=== PATIENT | female | born 1985 | race Caucasian/White ===

== ENCOUNTER 2017-11-30 17:37 | Emergency (ER) | payer OTHER, SELFPAY ==
[2017-11-30 17:39] VITALS: BP 137/76; PULSE 101; RESP 16; TEMP 36.6; O2SAT 95; BMI 44.7
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
--- NOTE | 2017-11-30 19:36 | ED.RN ---
[facility] CALLED FOR DRUG TESTING
[2017-11-30 20:07] VITALS: BP 138/89; PULSE 93; RESP 18; O2SAT 99
--- NOTE | 2017-11-30 20:18 | ED.RN ---
later found out it was a work related injury. pt;s employer us [employer] in [place]. Pt was a test through [facility] and follow up through same. Nurse and physician aware
== END 2017-11-30 20:17 | disposition home or self-care (01) ==
LOC: ED 20:15
PROVIDERS: Emergency Provider Emergency Medicine; Family Provider Family Medicine; PCP Family Medicine
DX: S00.33XA Contusion of nose, initial encounter (principal); R11.0 Nausea; V89.2XXA Person injured in unspecified motor-vehicle accident, traffic, initial encounter; Y93.9 Activity, unspecified; Y92.9 Unspecified place or not applicable
CPT/HCPCS: 99283

== ENCOUNTER → 2018-04-16 15:00 | Outpatient (CLI) | payer BC, SELFPAY ==
[2018-04-16 17:42] LABS: Prolactin 10.2 ng/mL; Thyroid Stim Hormone (TSH) 1.54 uIU/mL (0.358-3.74)
== END ==
PROVIDERS: Family Provider Family Medicine; PCP Family Medicine; Visit Provider Obstetrics & Gynecology
DX: N64.3 Galactorrhea not associated with childbirth (principal)
CPT/HCPCS: 36415; 84146; 84443

== ENCOUNTER → 2018-04-27 13:50 | Outpatient (CLI) | payer BC, SELFPAY ==
--- NOTE | 2018-04-27 13:53 | BI_ITS ---
MAMMOGRAPHY - BILATERAL DIAGNOSTIC REASON FOR EXAM: Female, 32 years old. Bilateral milky discharge. PERTINENT HISTORY: Family history of father with breast cancer. TECHNIQUE: Digital bilateral breast forrest (3D mammographic acquisition) in the CC and MLO projections. 2-D mediolateral oblique (MLO) and craniocaudad (CC) views of both breasts were obtained. CAD: Full Field Digital Mammography with Computer Added Detection was performed. COMPARISON: None. FINDINGS: Breast Composition: There are scattered areas of fibroglandular density. There are no dominant masses or suspicious calcifications. No other significant abnormalities are identified. BI/DIAG MAMM W/CAD, BILAT IMPRESSION: Negative diagnostic mammogram. With the patient's history of bilateral breast discharge, correlation with ultrasound of the retroareolar regions of both breasts is recommended. ASSESSMENT CATEGORY: BIRADS Category 0: Incomplete. Need additional imaging evaluation. A letter regarding these results will be sent to the patient by the facility within 30 days. Approximately 10% of breast cancers are not detected by mammography. A normal mammogram should not delay biopsy of a clinically suspicious abnormality. Electronically Signed: Terrance Briones MD at 14:56 EDT Tel [phone], Service support ,
--- NOTE | 2018-04-27 13:53 | US_ITS ---
STUDY: ULTRASOUND BREAST - RIGHT REASON FOR EXAM: Female, 32 years old. Nipple discharge. TECHNIQUE: Axial and longitudinal images of the RIGHT breast were performed with a high resolution ultrasound transducer. COMPARISON: Comparison is made with prior mammogram done earlier today. FINDINGS: RIGHT Breast: Mild dilatation of the retroareolar ducts. IMPRESSION: Mild dilatation of the retroareolar ducts. ASSESSMENT CATEGORY: BIRADS Category 2: Benign. A letter regarding these results will be sent to the patient by the facility within 30 days. Electronically Signed: Terrance Briones MD at 15:58 EDT Tel [phone], Service support , STUDY: ULTRASOUND BREAST - LEFT REASON FOR EXAM: Female, 32 years old. Nipple discharge. TECHNIQUE: Axial and longitudinal images of the LEFT breast were performed with a high resolution ultrasound transducer. COMPARISON: Comparison is made with prior mammogram done earlier in the day. FINDINGS: LEFT Breast: There is mild dilatation of the retroareolar ducts. US/Breast Limited Unilateral IMPRESSION: Mild dilatation of the retroareolar ducts. ASSESSMENT CATEGORY: BIRADS Category 2: Benign. A letter regarding these results will be sent to the patient by the facility within 30 days. Electronically Signed: Terrance Briones MD at 15:59 EDT Tel [phone], Service support ,
== END ==
PROVIDERS: Family Provider Family Medicine; PCP Family Medicine; Visit Provider Surgery
DX: N64.52 Nipple discharge (principal)
CPT/HCPCS: 76642; 77062; 77066; G0279

== ENCOUNTER → 2019-06-27 10:05 | Outpatient (CLI) | payer OTHER, SELFPAY ==
[2019-06-27 09:31] VITALS: BMI 45.4
[2019-06-27 10:23] LABS: Absolute Lymphocyte Count 2.03 X10^3/uL (0.83-4.51); Absolute Neutrophil Count 8.6 X10^3/uL (2.0-7.7); Basophil# 0.04 X10^3/uL; Basophil% 0.3 % (0-1); Eosinophil# 0.11 X10^3/uL; Eosinophils% 0.9 % (0-5); Hematocrit 38.4 % (37-47); Hemoglobin 12.6 g/dL (12.0-15.0); Lymphocyte # 2.03 X10^3/ul (4.0); Lymphocyte % 17.3 % (19-41); Mean Corp Hgb Conc 32.8 g/dL (32-36); Mean Corpuscular Hgb 28.9 pg (27.0-32.0); Mean Corpuscular Volume 88.1 fL (81-99); Mean Platelet Vol. 10.1 fl (6.2-12.0); Monocyte% 7.7 % (0-10); NRBC Flagged by Analyzer 0 % (0-5); Neutrophil # 8.63 X10^3/uL (2.7-7.7); Neutrophil % 73.4 % (47-70); Platelet Count 396 K/mm3 (150-450); RBC Distribution Width CV 12.4 % (11.6-14.6); RBC Distribution Width SD 40.1 fl (35.1-43.9); Red Blood Count 4.36 M/mm3 (4.2-5.4); White Blood Count 11.8 K/mm3 (4.4-11.0)
[2019-06-27 10:31] LABS: Glucose Challenge Gest 1H 50g 100 mg/dL (70-140)
[2019-06-27 11:44] LABS: HIV - WCH Non-Reactive (Nonreactive); Rubella IgG 84.8 IU/mL
[2019-06-27 18:05] LABS: Chlamydia Trachomatis by PCR Negative (Negative); Neisserai gonorrhoeae by PCR Negative (Negative); Probe Check PASS; Sample Adequacy Control PASS; Specimen Processing Control PASS
[2019-06-30 12:19] LABS: HPV APTIMA, High Risk Negative (Negative)
[2019-07-01 02:40] LABS: Rapid Plasmin Reagin (RPR) NONREACTIVE (NONREACTIVE)
== END ==
PROVIDERS: Nurse Practitioner Women's Health; Family Provider Family Medicine; PCP Family Medicine; Referring Provider Obstetrics & Gynecology; Visit Provider Obstetrics & Gynecology
DX: Z34.90 Encounter for supervision of normal pregnancy, unspecified, unspecified trimester (principal); Z12.4 Encounter for screening for malignant neoplasm of cervix
CPT/HCPCS: 36415; 82950; 85025; 86592; 86703; 86762; 86850; 86900; 86901; 87086; 87088; 87491; 87591; 87624; 88175; G0145

== ENCOUNTER → 2019-07-06 14:12 | Outpatient (CLI) | payer OTHER, SELFPAY ==
[2019-06-27 09:31] VITALS: BMI 45.4
== END ==
PROVIDERS: Family Provider Family Medicine; PCP Family Medicine; Referring Provider Nurse Practitioner Women's Health; Visit Provider Nurse Practitioner Women's Health
DX: Z34.81 Encounter for supervision of other normal pregnancy, first trimester (principal)
CPT/HCPCS: 36415

== ENCOUNTER → 2019-07-08 07:56 | Outpatient (CLI) | payer OTHER, SELFPAY ==
[2019-06-27 09:31] VITALS: BMI 45.4
--- NOTE | 2019-07-08 07:57 | US_ITS ---
STUDY: FIRST TRIMESTER OBSTETRICAL ULTRASOUND REASON FOR EXAM: Female, 33 years old , well-being LMP: 04/20/2019 TECHNIQUE: Transabdominal and Transvaginal TECHNICAL QUALITY: Adequate. PRIOR ULTRASOUND: None. FINDINGS: There is visualization of a single gestational sac in a normal intrauterine position. The mean sac diameter (MSD) measures 4.94 cm, indicating an estimated gestational age (EGA) of 10 weeks, 5 days. The gestational sac shape is within normal limits. There is no demonstrated yolk sac. The placenta is non-visualized due to early . There is visualization of a live embryo. The crown-rump length (CRL) measures 3.4 cm, indicating an estimated gestational age (EGA) of 10 weeks, 3 days. There is demonstrated cardiac activity with a heart rate of 157 bpm. The estimated gestation age (EGA) by LMP is 11 weeks, 2 days. The estimated date of delivery (CONG) by LMP is 01/25/2020. The estimated gestation age (EGA) by US is 10 weeks, 4 days. The estimated date of delivery (CONG) by US is 01/30/2020. The uterus measures 14.3 x 7.6 x 7.2 cm. There is no demonstrated uterine fibroid. The cervix is closed. The right ovary measures 10.0 x 7.5 x 5.5 cm. Complex solid and cystic mass of the right ovary identified measuring 5 cm each component (bilobed). There is no visualized right adnexal mass or complex lesion. The left ovary is not definitively seen. There is 11 cm round slightly hyperechoic mass in the region of the left adnexa/ovarian that could represent an adnexal mass versus a pedunculated uterine fibroid. There is no fluid in the cul de sac. US/Init OB < 14Wks US IMPRESSION: 1. Single live intrauterine correlating to gestational age of 10 weeks and 4 days. 2. Complex solid and cystic mass of the right ovary. 3. Possible 11 cm solid mass of the left adnexa. Electronically Signed: Kranthi Paz MD (Brooks) at 16:17 EDT , Service support ,
== END ==
PROVIDERS: Family Provider Family Medicine; PCP Family Medicine; Referring Provider Nurse Practitioner Women's Health; Visit Provider Nurse Practitioner Women's Health
DX: Z34.90 Encounter for supervision of normal pregnancy, unspecified, unspecified trimester (principal); N94.9 Unspecified condition associated with female genital organs and menstrual cycle
CPT/HCPCS: 76801

== ENCOUNTER → 2019-07-25 11:02 | Outpatient (CLI) | payer OTHER, SELFPAY ==
[2019-06-27 09:31] VITALS: BMI 45.4
--- NOTE | 2019-07-25 11:09 | MRI_ITS ---
MRI of the pelvis without contrast INDICATION: Adnexal mass. COMPARISON: Ultrasound 07/08/2019 next TECHNIQUE: Multiplanar spin-echo minute resonance images of the pelvis were obtained without the administration of intravenous gadolinium. Next FINDINGS: Examination the visualized rectum and sigmoid colon is normal. Examination the uterus demonstrates enlargement of the uterus with a intrauterine gestation. Examination of the right ovary demonstrates a 4 x 8 cm oval bilobed mass which is hyperintense on T1, hyperintense on T2 and demonstrates signal loss on the STIR images likely consistent with a fat-containing ovarian dermoid or proteinaceous cyst. There is a soft tissue nodular component measuring 1.6 cm. Examination the left ovary demonstrates a 7 x 9 cm oval T1 hypointense, T2 hyperintense mass of the left ovary likely consistent with a theca lutein cyst. Examination the bladder is normal. No other abnormal mass, lymphadenopathy, fluid collection. MRI/Pelvis (Routine) IMPRESSION: 1. Intrauterine gestation. 2. 4 x 8 cm oval bilobed mass in the right ovary consistent with an ovarian dermoid or possibly a complicated (hemorrhagic or proteinaceous) theca lutein cyst. 3. 7 x 9 cm cystic mass in the left ovary likely consistent with a theca lutein cyst. Electronically Signed: Jose Sykes MD at 15:28 EDT Tel , Service support ,
== END ==
PROVIDERS: Family Provider Family Medicine; PCP Family Medicine; Referring Provider Nurse Practitioner Women's Health; Visit Provider Nurse Practitioner Women's Health
DX: N83.9 Noninflammatory disorder of ovary, fallopian tube and broad ligament, unspecified (principal); Z3A.13 13 weeks gestation of pregnancy
CPT/HCPCS: 72195

== ENCOUNTER → 2019-10-21 09:48 | Outpatient (CLI) | payer OTHER, SELFPAY ==
[2019-10-21 08:51] VITALS: BMI 45.4
[2019-10-21 10:44] LABS: Absolute Lymphocyte Count 2.15 X10^3/uL (0.83-4.51); Absolute Neutrophil Count 10.3 X10^3/uL (2.0-7.7); Basophil# 0.04 X10^3/uL; Basophil% 0.3 % (0-1); Eosinophil# 0.11 X10^3/uL; Eosinophils% 0.8 % (0-5); Hematocrit 32.2 % (37-47); Hemoglobin 10.6 g/dL (12.0-15.0); Lymphocyte # 2.15 X10^3/ul (4.0); Lymphocyte % 15.8 % (19-41); Mean Corp Hgb Conc 32.9 g/dL (32-36); Mean Corpuscular Hgb 29.4 pg (27.0-32.0); Mean Corpuscular Volume 89.2 fL (81-99); Mean Platelet Vol. 10.2 fl (6.2-12.0); Monocyte# 0.87 X10^3/uL; Monocyte% 6.4 % (0-10); NRBC Flagged by Analyzer 0 % (0-5); Neutrophil # 10.28 X10^3/uL (2.7-7.7); Neutrophil % 75.6 % (47-70); Platelet Count 388 K/mm3 (150-450); RBC Distribution Width SD 42.3 fl (35.1-43.9); Red Blood Count 3.61 M/mm3 (4.2-5.4); White Blood Count 13.6 K/mm3 (4.4-11.0)
[2019-10-21 10:55] LABS: Glucose Challenge Gest 1H 50g 111 mg/dL (70-140)
[2019-10-21 11:32] LABS: Hepatitis B Surface Antigen Non-Reactive (Nonreactive)
== END ==
PROVIDERS: PCP Family Medicine; Referring Provider Obstetrics & Gynecology; Visit Provider Obstetrics & Gynecology
DX: Z34.80 Encounter for supervision of other normal pregnancy, unspecified trimester (principal)
CPT/HCPCS: 36415; 82950; 85025; 87340

== ENCOUNTER 2019-11-30 10:19 | Outpatient (CLI) | payer OTHER, SELFPAY ==
[2019-11-25 08:30] VITALS: BMI 45.4
[2019-11-30 10:25] VITALS: BP 130/73; PULSE 96
[2019-11-30 10:36] VITALS: TEMP 97.8
[2019-11-30 10:41] VITALS: BMI 48.4
--- NOTE | 2019-11-30 10:59 | US_ITS ---
STUDY: OBSTETRICAL ULTRASOUND - BIOPHYSICAL PROFILE REASON FOR EXAM: Female, 33 years old tachycardia LMP: 04/20/2019 PRIOR ULTRASOUND: 07/25/2019 TECHNIQUE: Transabdominal TECHNICAL QUALITY: Adequate. FINDINGS: There is a single intrauterine fetus. The fetus is in a breech presentation. There is demonstrated cardiac activity with a heart rate of 165 bpm. There is a normal amniotic fluid volume. The largest amniotic fluid pocket measures 4.3 cm. The amniotic fluid index (ROSAS) is 14.0 cm. The placenta is anterior in location and is not low lying. There are Grade 1 placental changes. 3 cm triangular hypoechoic area within the base of the placenta anteriorly of uncertain etiology and significance. Another 1.8 cm placental buitrago is noted. Age by LMP: 32 weeks, 0 days. CONG by LMP: 01/25/2020. BIOPHYSICAL PROFILE: Breathing Movements (FBM): 0 Gross Body Movements (GBM): 2 Tone (FT): 2 Amniotic Fluid Volume (AFV): 2 TOTAL SCORE: 6 / 8 US/Biophysical Profile IMPRESSION: biophysical profile of 6/8. Unusual 3 cm triangular hypoechoic area in the basal anterior placenta of uncertain etiology and significance. Electronically Signed: Jose Sykes MD at 13:05 EST Tel , Service support ,
[2019-11-30] MEDS: Lactated Ringers 1,000 ML 1000 ML IV (11:30)
[2019-11-30 11:49] LABS: Hematocrit 33.8 % (37-47); Hemoglobin 11.1 g/dL (12.0-15.0); Mean Corp Hgb Conc 32.8 g/dL (32-36); Mean Corpuscular Hgb 29.4 pg (27.0-32.0); Mean Corpuscular Volume 89.7 fL (81-99); Mean Platelet Vol. 10.5 fl (6.2-12.0); Platelet Count 381 K/mm3 (150-450); RBC Distribution Width CV 13.2 % (11.6-14.6); RBC Distribution Width SD 43.3 fl (35.1-43.9); Red Blood Count 3.77 M/mm3 (4.2-5.4); White Blood Count 14.1 K/mm3 (4.4-11.0)
[2019-11-30 12:41] VITALS: BP 123/68; PULSE 90
[2019-11-30 12:48] LABS: Fibrinogen 782 mg/dl (203-444)
--- NOTE | 2019-11-30 14:23 | OB.TRI.PN ---
Progress Notes Date of Service: 11/30/19 Progress Note: fht 150-170 moderate variability positive accels cat I-II tracing at times, bpp 6/8 on US, recommend US with MFM consult as OP. a/p tachycardia- s/p IVFs, reassuring BPP, plan MFM consult as outpatient ot evaluate placental location Laboratory Studies: Laboratory Tests 11/30/19 11/30/19 Range/Units 11:30 11:30 WBC 14.1 H (4.4-11.0) K/mm3 RBC 3.77 L (4.2-5.4) M/mm3 Hgb 11.1 L (12.0-15.0) g/dL Hct 33.8 L (37-47) % MCV 89.7 (81-99) fL MCH 29.4 (27.0-32.0) pg MCHC 32.8 (32-36) g/dL RDW Std Deviation 43.3 (35.1-43.9) fl RDW Coeff of Trista 13.2 (11.6-14.6) % Plt Count 381 (150-450) K/mm3 MPV 10.5 (6.2-12.0) fl Fibrinogen 782 H (203-444) mg/dl Multi Select Codes - Urinary/Genital Urinary/Genital CPT Codes: 85865-99 non-stress test Interp
== END 2019-11-30 13:45 | disposition home or self-care (01) ==
LOC: WPOUT 10:21 → OBT 10:22
PROVIDERS: PCP Family Medicine; Referring Provider Obstetrics & Gynecology; Visit Provider Obstetrics & Gynecology
DX: O36.8390 Maternal care for abnormalities of the fetal heart rate or rhythm, unspecified trimester, not applicable or unspecified (principal); Z3A.00 Weeks of gestation of pregnancy not specified
CPT/HCPCS: 96360; 59025; 59050; 76818; 85027; 85384; 99218; J7120; A4216; G0378

== ENCOUNTER → 2019-12-26 09:01 | Outpatient (CLI) | payer OTHER, SELFPAY ==
[2019-12-21 08:39] VITALS: BMI 48.4
--- NOTE | 2019-12-26 09:02 | US_ITS ---
STUDY: SECOND AND THIRD TRIMESTER OBSTETRICAL ULTRASOUND REASON FOR EXAM: Female, 34 years old growth LMP: April 20, 2019. TECHNIQUE: Transabdominal TECHNICAL QUALITY: Adequate. PRIOR ULTRASOUND: Comparison is made with prior examination dated November 30, 2019. FINDINGS: There is a single intrauterine fetus. The fetus is in a cephalic presentation. There is demonstrated cardiac activity with a heart rate of 152 bpm. There is a normal amniotic fluid volume. The largest amniotic fluid pocket measures 8.4 cm. The amniotic fluid index (ROSAS) is 17.8 cm. The placenta is anterior in location and is not low lying. Stable 3 cm x 3.1 cm x 1.9 cm triangular hypoechoic area within the base of the placenta anteriorly. There are Grade 1 placental changes. The cervix measures 3.1 cm in length. The adnexal regions are not visualized. BIOMETRY: BPD: 8.4 cm: 33 weeks, 6 days HC: 31.9 cm: 35 weeks, 5 days AC: 32.4 cm: 36 weeks, 1 days FL: 6.5 cm: 33 weeks, 4 days CI: 76% FL/BPD: 78% FL/HC: FL/AC: 20% HC/AC: 0.98 age by current US: 35 weeks, 0 days. CONG by current US: January 30, 2020. Estimated weight: 2641 grams, +/- 391 grams, 35 %. age by prior US: 35 weeks, 0 days. CONG by prior US: January 30, 2020. Age by LMP: 35 weeks, 5 days. OCNG by LMP: January 25, 2020. US/OB Limited With Biometrics IMPRESSION: Single live intrauterine gestation with a mean gestational age of 35 weeks. Stable 3 cm triangular hypoechoic area in the basal anterior aspect of the placenta. Electronically Signed: Terrance Briones, at 13:15 EDT , Service support ,
== END ==
PROVIDERS: PCP Family Medicine; Referring Provider Obstetrics & Gynecology; Visit Provider Obstetrics & Gynecology
DX: Z34.80 Encounter for supervision of other normal pregnancy, unspecified trimester (principal)
CPT/HCPCS: 76816

== ENCOUNTER → 2019-12-30 | Outpatient (CLI) | payer OTHER, SELFPAY ==
[2019-12-30 08:34] VITALS: BMI 48.4
== END | disposition home or self-care (01) ==
LOC: LABSPEC 16:11
PROVIDERS: PCP Family Medicine; Referring Provider Obstetrics & Gynecology; Visit Provider Obstetrics & Gynecology
DX: Z34.93 Encounter for supervision of normal pregnancy, unspecified, third trimester (principal); Z3A.36 36 weeks gestation of pregnancy
CPT/HCPCS: 87081

== ENCOUNTER 2020-01-18 05:15 | Inpatient (IN) | payer OTHER, SELFPAY ==
[2019-10-21 08:51] VITALS: BMI 45.4
[2020-01-12 08:42] VITALS: BMI 48.4
[2020-01-18] VITALS (16 sets, daily range): BP systolic 109–140; BP diastolic 57–87; PULSE 74–93; RESP 12–20; TEMP 36.1–36.8; O2SAT 94–100; BMI 49.2
--- NOTE | 2020-01-18 | OV_PTH ---
PATIENT: ELVER TELLO LOC: [facility] U#:[id number] AGE/SX: 34/F ROOM: WP005 RE01/18/[address]: Dr. Maribel Young MD : 1985 BED: 1 DIS: 01/20/2020 SPEC #: [id number] RECD: 01/18/20 11:02 STATUS: TONI TAMMI #: [id number] JAMMIE: 01/18/20 00:[address]: Maribel Young DEPT: SURGICAL PATHOLOGY RECD BY: Syd Vo ENTERED: 01/18/20 12:46 SP TYPE: OVARY OTHR DR: Dr. Eduard Garcia MD Tissues: OVARIAN CYST Procedures: Decalcification bone/plaque Surgery Specimen Level V HEADER OPERATION: Repeat section PRE-OP DIAGNOSIS: Exam of cyst from right ovary TISSUE SUBMITTED: Cyst from right ovary MICROSCOPIC DIAGNOSIS Right partial ovary, cystectomy: Mature cystic teratoma (dermoid cyst)). AM:redd 01/24/20 MICROSCOPIC DESCRIPTION Slides are reviewed. GROSS DESCRIPTION Received is one container labeled with the patient's name and not further designated. The specimen consists of a solid to cystic piece of tissue and detached piece of tissue. The entire specimen weighs 64 gm. The nodular, solid to cystic piece of tissue measures 7 x 5.5 x 3.5 cm and detached piece of tissue measures 5 x 2 x 1 cm. The detached piece of tissue appears to be a portion of the nodular, solid to cystic piece of tissue. The outer surface of the solid to cystic nodular piece of tissue is inked black and sections reveal this is filled with light yellow sebum like material and contains a few hairs. A focal, solid area is noted measuring 3.5 x 3 x 1 cm. This solid area also shows focal area of bone formation. The detached piece of tissue also shows focal solid area. Pediatric Psychiatrist sections are submitted in five cassettes as follows: 1 & 2 - nodular, cystic solid tissue, 3 - detached pieces of tissue, 4-6 - solid area of bony tissue, entirely submitted after decalcification. / SJ:redd 01/18/20 TC:1 CPT: 83278, 37772
[2020-01-18] MEDS: Lactated Ringers 1,000 ML 999 ML IV (05:30)
[2020-01-18 06:04] LABS: Absolute Lymphocyte Count 2.49 X10^3/uL (0.83-4.51); Absolute Neutrophil Count 9.5 X10^3/uL (2.0-7.7); Basophil# 0.04 X10^3/uL; Basophil% 0.3 % (0-1); Eosinophils% 0.8 % (0-5); Hemoglobin 12.1 g/dL (12.0-15.0); Lymphocyte # 2.49 X10^3/ul (4.0); Lymphocyte % 18.8 % (19-41); Mean Corp Hgb Conc 32.7 g/dL (32-36); Mean Corpuscular Hgb 29.8 pg (27.0-32.0); Mean Corpuscular Volume 91.1 fL (81-99); Mean Platelet Vol. 11.2 fl (6.2-12.0); Monocyte# 0.93 X10^3/uL; NRBC Flagged by Analyzer 0 % (0-5); Neutrophil # 9.52 X10^3/uL (2.7-7.7); Neutrophil % 71.9 % (47-70); Platelet Count 343 K/mm3 (150-450); RBC Distribution Width CV 13.3 % (11.6-14.6); RBC Distribution Width SD 43.8 fl (35.1-43.9); Red Blood Count 4.06 M/mm3 (4.2-5.4); White Blood Count 13.2 K/mm3 (4.4-11.0)
[2020-01-18] MEDS: Lactated Ringers 1,000 ML 150 ML IV (06:30)
[2020-01-18] MEDS: Sodium Citrate/Citric Acid 30 ML UDC PO (07:07)
--- NOTE | 2020-01-18 07:31 | HP.PCM_ITS ---
- Problem List (1) AMA (advanced maternal age) multigravida 35+ Status: Acute Qualifiers: (2) Anemia affecting Status: Acute Qualifiers: Comment: needs cbc at 36 weeks (3) Depression Status: Acute Qualifiers: Comment: stable, zoloft. counseling encouraged (4) Dermoid cyst of right ovary Status: Acute Comment: 4x8cm, remove at delivery (5) History of Status: Acute Comment: RLTCS with right cytectomy poss right oophorectomy 01/18/2020 at 0730. (6) Status: Acute Qualifiers: Comment: carrier and genetic screen-low risk , declined afp. 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: No Is patient in pain?: No Allergies No Known Allergies Allergy (Verified 01/04/20 08:32) Medications Sertraline HCl [Zoloft] 50 mg PO DAILY 01/23/16 [History Confirmed 01/04/20] acetaminophen 500 mg tablet 650 mg PO Q6H 06/27/19 [History Confirmed 01/04/20] Ferrous Sulfate 325 mg PO QHS 11/30/19 [History Confirmed 01/04/20] Vits [Prenatabs FA ] 1 tab PO DAILY 11/30/19 [History Confirmed 01/04/20] Last Menstral Period: 04/20/19 Zika: Zika virus screening: Negative : No PFSH PFSH Medical History Depression (Acute) Abnormal Pap smear of cervix (Acute) Anemia (Acute) Asthma (Acute) Fatigue (Acute) Migraines (Acute) Surgical History History of tonsillectomy and adenoidectomy (Acute) Hx of section (Acute) Status post myringotomy with insertion of tube (Resolved) Family History Father Cancer prostate and skin Diabetes Parkinson disease Heart disease Myocardial infarction x2 Hypertension Breast cancer Mother Brain aneurysm Social History (Updated 01/04/20 @ 09:[address] 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 Date Name GA/Weeks Outcome Route Bth Weight Infant Gen Labor Lgth Anesthesia Del Locatn Provider FOB 01/23/16 Nate 40 live - full term 7 lbs 14 oz Male 24 hours epidural Delivery Date: 01/23/16 On 05/24/18 @ 08:30 Marlen Rutledge epidural did not work and pt. felt everything HPI 38 WK OB/NST: Details: ELVER TELLO is a 34 year old who presents for routine OB visit. OB Visit CONG Calculator Estimated Delivery Date Method Current WG Current Estimate 01/25/20 LMP (Certain) 37w 0d Expected Delivery Route/Plan RLTCS Labor Preferences- labor support person: Renny Specific Issue/Plans flu vaccine: given tdap vaccine: given rhogam: na LARC form signed: declined movement and labor precautions reviewed. Problem list reviewed and updated with the most current plan of care details and appropriate orders placed. Relevant counseling for the gestational age provided. Continue routine care and follow up unless otherwise noted in visit notes/problem list details Initial Weight: 279 lb Date EGA Weight BP Urine Prot Glucose FHR FuHt Pres Dilation Effaced St Visit Note 07/28/19 14w 1d 279 lb (+0 oz) 132/82 Negative Negative 150 no vb cramping 08/23/19 17w 6d 284 lb 6 oz (+5 lb 6 oz) 120/84 Negative Negative 161 No VB, LOF. Doing well 09/19/19 21w 5d 286 lb (+7 lb) 132/84 Negative Negative 150 no vb lof good fm no regular ctx 10/21/19 26w 2d 291 lb 4 oz (+12 lb 4 oz) 139/80 Trace Negative 145 SM- no vb lof good fm no regular ctx cbc gct tdap 11/11/19 29w 2d 297 lb (+18 lb) 130/80 Negative Negative 145 30 SM- no vb lof good fm no regular ctx 11/25/19 31w 2d 296 lb (+17 lb) 118/84 Negative Negative 145 32 SM- no vb lof good fm no regular ctx 12/14/19 34w 0d 296 lb 4 oz (+17 lb 4 oz) 128/82 Negative Negative 12/21/19 35w 0d 295 lb (+16 lb) 124/82 Negative Negative 12/30/19 36w 2d 296 lb (+17 lb) 130/82 140 SM_ no vb lof good fm no regular ctx 01/04/20 37w 0d 295 lb (+16 lb) 134/82 Negative Negative 140 SM- no vb lof good fm no regular ctx Notes Visit Date: 01/04/20 ??No visit notes to display Visit Date: 12/30/19 ??No visit notes to display Visit Date: 12/21/19 ??No visit notes to display Visit Date: 12/14/19 ??No visit notes to display Visit Date: 11/25/19 ??No visit notes to display Visit Date: 11/11/19 ??No visit notes to display Visit Date: 10/21/19 ??No visit notes to display Visit Date: 09/19/19 ??No visit notes to display Visit Date: 08/23/19 ??No VB, LOF. Doing well ??PAM Bunch on 08/23/19 Visit Date: 07/28/19 ??no vb cramping ??Maribel Young MD on 07/30/19 ACOG First Trimester First Trimester: Second Trimester Second Trimester: Signs and Symptoms of Labor, Selecting a care provider, Reproductive Life Planning, Care Planning, Tobacco Cessation, Depression/Anxiety and Intimate Partner Violence Third Trimester Third Trimester: Pain Management Plans, Labor support person(s), Immediate Larc, Movement Monitoring and Feeding Yes ; discussed Trial of Labor after Counseling or discussed Circumcision preference Diagnostics Diagnostics Diagnostics Glucose 1 Hr 50 gm 111 mg/dL (70-140) 10/21/19 Hgb 11.1 g/dL (12.0-15.0) L 11/30/19 Hct 33.8 % (37-47) L 11/30/19 Details: HIV: Urine Culture: Sequential Screen: NIPT Screen: ROS Const Reports system reviewed and no additional complaints, except as docu Card Reports system reviewed and no additional complaints, except as docu Resp Reports system reviewed and no additional complaints, except as docu GI Reports system reviewed and no additional complaints, except as docu, Reports nausea Reports system reviewed and no additional complaints, except as docu Musc Reports system reviewed and no additional complaints, except as docu Exam Const General: cooperative, healthy appearing, comfortable, anxious HENMT Head: normal to inspection Nose: external nose normal Face and sinus: normal facial exam Neck Neck: normal visual inspection, full ROM, no lymphadenopathy Thyroid: thyroid normal Chest Chest palpation & inspection: normal inspection of the chest Resp Effort & Inspection: normal respiratory effort GI Inspection: normal to inspection Palpation: soft, other (gravid uterus) Other: infant vertex and appropriate size for gestational age Other: Cervical Exam: Extrem General: pedal edema Office Procedures OB NST Non-Stress Test Indications for Monitoring: Yes other (ama ) Heart Rate Baseline: 140 Heart Rate Variability: moderate Movement: Present Heart Rate Accelerations: Present Decelerations: Absent Contractions: Absent Impression: Yes Reactive Non-Stress Test Category 1 Results POC Urinalysis 2 Dip (Clinic) Office Urine Glucose Negative Last Edit by Tiffanie Amaya on 01/04/20 08:3 9 Office Urine Protein Negative Last Edit by Tiffanie Amaya on 01/04/20 08:3 9 Assessment & Plan Problems 1. AMA (advanced maternal age) multigravida 35+ O09.529 2. Anemia affecting O99.019 3. Dermoid cyst of right ovary D27.0 4. History of Z98.891 5. Supervision of other normal Z34.80 6. 37 weeks gestation of Z3A.37 7. Depression, unspecified depression type F32.9 plan RLTCS Orders Orders: POC Urinalysis 2 Dip (Clinic) Today OB NST Today O09.529 Coding Level of Care Code OB Routine Diagnoses AMA (advanced maternal age) multigravida 35+ O09.529 Anemia affecting O99.019 Dermoid cyst of right ovary D27.0 History of Z98.891 Supervision of other normal Z34.80 37 weeks gestation of Z3A.37 ??Weeks of gestation: 37 weeks Depression, unspecified depression type F32.9 ??Depression Type: unspecified Additional Codes Non-Stress Test (02991)
[2020-01-18] MEDS: Oxytocin 30 units/NS 500 ml 30 UNITS/500 ML IV.SOLN 167 UNITS IV (08:55)
--- NOTE | 2020-01-18 10:12 | PCM.OPRPT ---
Problem List (1) AMA (advanced maternal age) multigravida 35+ Status: Acute Qualifiers: (2) Anemia affecting Status: Acute Qualifiers: Comment: needs cbc at 36 weeks (3) Depression Status: Acute Qualifiers: Comment: stable, zoloft. counseling encouraged (4) Dermoid cyst of right ovary Status: Acute Comment: 4x8cm, remove at delivery (5) History of Status: Acute Comment: RLTCS with right cytectomy poss right oophorectomy 01/18/2020 at 0730. (6) Status: Acute Qualifiers: Comment: carrier and genetic screen-low risk , declined afp. 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 Spinal anesthesia was placed without difficulty. Beth catheter was placed. The patient was placed in the dorsal supine position with leftward tilt. Patient was prepped and draped in the normal sterile fashion. Pfannenstiel skin incision was made with the scalpel and carried through to the underlying layer of fascia with the scalpel. Fascia was nicked in the midline and the incision extended laterally. The rectus bellies were dissected off superiorly and inferiorly with out complication both sharply and bluntly. The peritoneum was entered digitally. The incision was stretched and a low transverse uterine incision was made with the scalpel. The infant's head was delivered atraumatically followed by the anterior and posterior shoulders without complication the rest of the infant delivered. The cord was clamped and cut and the was handed off to awaiting nurse. The placenta was delivered spontaneously immediately following and was noted to be intact and have a three-vessel cord. The uterus was exteriorized cleared of all clots and debris, and the incision was closed in a single layer closure using #1 Monocryl. The left ovary and fallopian tube was noted to be within normal limits. The right ovary was noted to be enlarged with a complex ovarian cyst. An incision was made across the cyst with the Bovie and then dissected the cyst wall out from the normal ovarian tissue with inadvertent rupture of cyst with sebaceous contents removed. The rest of the mass was removed without rupture and sent to pathology for analysis. The ovary was oversewn with 3-0 Monocryl and and noted to have excellent hemostasis. The uterus was returned to the maternal abdomen and gutters were cleared of all clots and debris. Areli was placed over the incision and noted to have excellent hemostasis the peritoneum was closed with 3-0 Monocryl in a running fashion. Gloves were changed prior to fascial closure. Fascia was closed with 0 PDS in a running fashion. Subcutaneous tissue was copiously irrigated and the skin was closed with 3-0 Monocryl in a subcuticular fashion. Mepilex dressing was applied without complication. Patient was taken to recovery in stable condition. It was discussed with the patient that based on the clinical information obtained during this encounter, combined with her history, at this time I would recommend cesareans for future deliveries if further pregnancies are desired. Amniotic Membrane Rupture Type: Artificial Amniotic Fluid Description: Clear Placenta [facility]position: [facility] Specimen(s) sent to pathology: ovarian cyst Drain: Beth to straight drain Fluids Replaced: crystalloid Cord Entanglement: None Esitmated Blood Loss (ml): 700 Infant Gender: Female Delayed cord clamping: Yes Antibiotic Given: Ancef 3 grams IV x1 Pt instructed on risks of surgery: Bleeding, Anesthesia Risks, Infection, Need for Future C-Sections, Injury to surrounding structure(s) including bowel and bladder Complications: None - Admit VTE Documentation VTE Present on Admission: No VTE Mechan Device Prophylaxis: SCD's Multi Select Codes - Urinary/Genital Urinary/Genital CPT Codes: 08622 Ovarian cystectomy laparotomy, 41414 Delivery [facility]
[2020-01-18] MEDS: oxyCODONE 5 MG Tablet PO (11:48)
[2020-01-18] MEDS: Lactated Ringers 1,000 ML 100 ML IV (11:55)
[2020-01-18] MEDS: Ketorolac 30 MG/ML Syringe IV ×2 (14:29→20:17)
[2020-01-18] MEDS: Sertraline 50 MG Tablet PO (14:29)
[2020-01-18] MEDS: 0.9% Saline Lock 10 ML Syringe IV (14:30)
--- NOTE | 2020-01-18 17:30 | CASEMGMT ---
Social Work Labor and Delivery Unit Date of Referral: 01/18/2020 Referred By: Dr. Young Date of Intervention: 01/18/2020 Time of Intervention: 17:30 Reason for Referral: Mother of baby (MOB) with history of depression History obtained from: MOB, medical chart, and nursing staff. Household composition: MOB, Father of baby (FOB), 4 year old son, and now this infant. This infant and older sibling share paternity. Patient's parent/guardian status: MOB and FOB have custody of this infant and other child in the home. This infant name: Vanessa Frederick. Medical History: MOB with and history of appropriate care. MOB with history of depression. Infant with of 8 and 9 at 1 and 5 minutes. with weight of 2895 grams. 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 FOB works full-time at an [employer] and will have the next week off work to be at home with family. Financial Status: No concerns at this time. Supplies: MOB stating to have all needed supplies within the home (ex: crib, clothing, car seat etc.). MOB planning to breastfeed and stating that has been going well. Childcare/Caregiver(s): MOB plans to be primary caregiver for infant at this time and family for support when MOB returns to working. Transportation: No concerns. Children Services/Legal Issues: No history of Children Services involvement. Mental Health History: Patient with history of depression. Patient stating to manage depression through Zoloft. Patient stating that Zoloft works for patient and manages patient depression. Patient stating to have a history of counseling but no active counseling at this time. Patient stating that mood during was good. Patient presenting with a positive affect and engaged in assessment. Broached topic of depression. MOB denies any history of depression. Reviewed signs and symptoms of depression and things for MOB to be aware of. MOB does not believe patient needs counseling at this time and that patient has been doing well. MOB aware of counseling options of patient would find a need for counseling services. MOB denies any current suicidal thoughts or history of. Substance Use History: No history of substance abuse. Maternal and Infant Drug Screens: No drug testing completed. Family/Social Stressors: None identified at this time. MOB stating to be looking forward to transitioning to having two children. Support Systems: MOB reporting to have support from FOB and infants maternal grandmother (MOB's mother). MOB stating to have no concerns for support and needs at time of discharge. Depression and Anxiety/Shaken Baby/Safe Sleeping: Provided MOB with resources on depression, safe sleeping, shaken baby, [facility], and counseling agencies. ASSESSMENT: Met with MOB and FOB in room. Introduced self as well as group social worker role. MOB agreeable to conversation with this group social worker. FOB did step out of the room in order for this group social worker to assess MOB's current safety in the home. MOB stating to feel safe at home and to have no concerns with abuse or neglect for self or children in the home. FOB then returning to the room. Infant crying during assessment. MOB wanting to continue with assessment and was tending to infant and speaking with this group social worker in an appropriate manner. MOB able to manage emotions and infant while speaking with this group social worker. MOB stating to have a connection with to to be excited that is now here. MOB voicing no concerns with returning to home. PLAN: Infant to discharge to home with MOB, FOB, and older sibling. No other services requested or indicated.
[2020-01-19 03:00] VITALS: BP 127/85; PULSE 82; RESP 18; TEMP 37.2; O2SAT 95
[2020-01-19] MEDS: 0.9% Saline Lock 10 ML Syringe IV ×4 (03:07→20:58)
[2020-01-19] MEDS: Ketorolac 30 MG/ML Syringe IV ×4 (03:07→20:58)
[2020-01-19 06:31] LABS: Hematocrit 32.6 % (37-47); Hemoglobin 10.7 g/dL (12.0-15.0); Mean Corp Hgb Conc 32.8 g/dL (32-36); Mean Corpuscular Hgb 29.6 pg (27.0-32.0); Mean Corpuscular Volume 90.3 fL (81-99); Mean Platelet Vol. 10.9 fl (6.2-12.0); Platelet Count 270 K/mm3 (150-450); RBC Distribution Width CV 13.5 % (11.6-14.6); RBC Distribution Width SD 44.4 fl (35.1-43.9); Red Blood Count 3.61 M/mm3 (4.2-5.4); White Blood Count 13.7 K/mm3 (4.4-11.0)
[2020-01-19 07:59] VITALS: BP 116/74; PULSE 85; RESP 18; TEMP 36.3; O2SAT 97
--- NOTE | 2020-01-19 09:45 | PN.OBGYN_ITS ---
Subjective: doing well no complaints pain controlled no CP SOB N V ambulating well tolerating po lochia moderate, going well - Physical Exam Vitals/I&O's: Vital Signs Temp Pulse Resp BP Pulse Ox 97.3 F L 85 18 116/74 97 01/19/20 07:59 01/19/20 07:59 01/19/20 07:59 01/19/20 07:59 01/19/20 07:59 Oxygen Delivery Method Room Air Weight: 296 lb 1.293 oz Body Mass Index (BMI) 49.2 Intake and Output for Last 24 Hours 01/17/20 01/18/20 01/19/20 23:59 23:59 23:59 Intake Total 2984 / 2984 Output Total 1500 / 1500 600 / 600 Balance 1484 / 1484 -600 / -600 General: Alert, Oriented x3 Laboratory Results 01/19/20 06:00: WBC 13.7 H, RBC 3.61 L, Hgb 10.7 L, Hct 32.6 L, MCV 90.3, MCH 29.6, MCHC 32.8, RDW Std Deviation 44.4 H, RDW Coeff of Trista 13.5, Plt Count 270, MPV 10.9 Current Medications Acetaminophen (Tylenol) 1,000 mg PO Q8H PRN PRN Reason: Pain Score 1-3/10 Bisacodyl (Dulcolax) 10 mg RECTAL UD PRN PRN Reason: If no BM Enoxaparin Sodium (Lovenox) 40 mg SC BID [facility] Hydrocortisone (Hytone) 1 applic TOPICAL TID PRN PRN; Protocol PRN Reason: Discomfort Hydromorphone HCl (Dilaudid Inj) 1 mg IV Q3H PRN PRN PRN Reason: Pain Score 6-10/10 Naloxone HCl 4 mg/ Dextrose 504 mls @ 0 mls/hr IV .Q0M PRN; Protocol PRN Reason: Respiratory depression Ketorolac Tromethamine (Toradol (Bkc)) 30 mg IV Q6H [facility] Stop: 01/20/20 08:31 Last Admin: 01/19/20 08:05 Dose: 30 mg Documented by: Methylergonovine Maleate (Methergine) 0.2 mg IM X1 PRN PRN Reason: Uterine Atony Naloxone HCl (Narcan) 0.02 mg IV Q1M PRN PRN Reason: RR <10 and pt unresponsive Naproxen (Naprosyn) 250 - 500 mg PO Q8H PRN PRN PRN Reason: Pain Score 1-3/10 Ondansetron HCl (Zofran) 4 mg IV Q4H PRN PRN PRN Reason: Nausea Oxycodone HCl (Oxyir) 5 - 10 mg PO Q4H PRN PRN PRN Reason: Pain Score 4-10/10 Last Admin: 01/18/20 11:48 Dose: 10 mg Documented by: Prochlorperazine Edisylate (Compazine Iv) 10 mg IV Q6H PRN PRN PRN Reason: NAUSEA Senna/Docusate Sodium (Senokot-S, Nancy-Colace) 0 tablet PO DAILY PRN PRN Reason: Constipation Sertraline HCl (Zoloft) 50 mg PO DAILY ROSA Last Admin: 01/18/20 14:29 Dose: 50 mg Documented by: Simethicone (Mylicon) 80 mg PO PCHS PRN PRN Reason: Indigestion/stomach pain Sodium Chloride () 5 - 15 ml IV UD PRN PRN Reason: SALINE FLUSH Last Admin: 01/19/20 08:05 Dose: 10 ml Documented by: Medical Necessity - Tobacco Use Smoking Status: Never smoker Assessment/Plan All Active Problems (Last Reviewed 01/12/20 @ 08:42 by Tiffanie Amaya) AMA (advanced maternal age) multigravida 35+ (Acute) Anemia affecting (Acute) Dermoid cyst of right ovary (Acute) History of (Acute) Supervision of other normal (Acute) (Acute) Depression (Acute) Galactorrhea (Resolved) Left ovarian cyst (Resolved) Tick bite (Resolved) s/p LTCS PPD # 1 1. routine post care 2. breast feeding- support given 3. rh positive 4. rubella immune
[2020-01-19] MEDS: Senna/Docusate Sodium 1 Tablet PO (09:48)
--- NOTE | 2020-01-19 09:48 | DCINST_ITS ---
Discharge Diet: No Restrictions Discharge Activity: May Not Drive - for 2 weeks, May not drive while taking narcotic pain medications., May Shower, May Take a Tub Bath - in 7 days May resume sexual activity in: 4-6 weeks Lifting Restrictions: 20 pounds Additional Activity Instructions:: Nothing in the vagina for 4-6 weeks. You may return to work/school in 6 weeks. Call your doctor if your incision/area has: Continuous Slow Oozing, Sudden Increased Bleeding, Increased Pain/ Swelling, Increased Redness, Foul Smelling Discharge Call your doctor if you observe: Fever of 101 or Higher, Using more than one pad per hour - for 2 hours Suture Line Care: Avoid Pulling/Pushing, Avoid Pinching/Bending Cleanse incision/area with: Keep Dressing Clean & Dry Additional Instructions: If you experience any of the following, contact your healthcare provider. * Bleeding that soaks a pad every hour for 2 hours * Fever 100.4 or higher * Unrelieved incision or abdominal pain * Swelling, redness, discharge or bleeding from your incision or episiotomy site * Your incision begins to separate * Problems urinating (including inability to urinate or burning while urinating). * Visual changes * Severe headache * Flu-like symptoms * Pain or redness in one of both of your breasts * Pain, warmth, tenderness or swelling in your legs, especially the calf area * Frequent nausea and vomiting * Symptoms of depression or anxiety If you experience any of the following, call 911 or go to the nearest Emergency Room. * Chest pain * Problems breathing * Seizure activity * Partial or complete paralysis of a body part, slurred speech, weakness or drooping of the face, or a sudden inability to walk or hold your balance Allergies/Adverse Reactions: Allergies No Known Allergies Allergy (Verified 01/12/20 08:42) Medications to take at Discharge Sertraline HCl [Zoloft] 50 mg PO DAILY 01/23/16 acetaminophen 500 mg tablet 650 mg PO Q6H 06/27/19 Ferrous Sulfate 325 mg PO QHS 11/30/19 Vits [Prenatabs FA ] 1 tab PO DAILY 11/30/19 Naproxen [Naprosyn] 250 - 500 mg PO Q8H PRN PRN #30 tab 01/19/20 Oxycodone HCl/Acetaminophen [Percocet 5-325] 1 - 2 tablet PO Q6H PRN PRN 7 Days #15 tablet 01/19/20 The following prescriptions were given: Naproxen [Naprosyn] 250 - 500 mg PO Q8H PRN PRN #30 tab PRN Reason: MILD PAIN Transmission Status: Pending to [facility] Oxycodone HCl/Acetaminophen [Percocet 5-325] 1 - 2 tablet PO Q6H PRN PRN 7 Days #15 tablet PRN Reason: Pain Transmission Status: Sent to [facility] Follow-Up: Call to make an appointment with your doctor for an incision check in 1-2 weeks. You will also need a 6 week post- follow up appointment. Test results from this visit will be discussed in further detail at your follow-up appointment, if applicable. Please Follow Up With: Maribel Young MD - Call to make an appointment for an incision check in 1-2 [phone] When: You will need a post- check in 6 weeks. Primary Care Physician: Eduard Garcia MD [Primary Care Provider] -
[2020-01-19] MEDS: Sertraline 50 MG Tablet PO (09:49)
[2020-01-19] MEDS: Enoxaparin 40 MG/0.4 ML Syringe SC ×2 (09:49→22:34)
[2020-01-19] MEDS: oxyCODONE 5 MG Tablet PO (10:21)
[2020-01-19 15:15] VITALS: BP 125/80; PULSE 88; RESP 18; TEMP 36.1; O2SAT 96
[2020-01-19 20:50] VITALS: BP 122/83; PULSE 85; RESP 16; TEMP 37; O2SAT 99
[2020-01-20 02:31] VITALS: BP 124/83; PULSE 79; RESP 16; TEMP 36.6; O2SAT 97
[2020-01-20] MEDS: Ketorolac 30 MG/ML Syringe IV ×2 (02:33→08:48)
[2020-01-20] MEDS: 0.9% Saline Lock 10 ML Syringe IV ×2 (02:33→08:49)
[2020-01-20 08:45] VITALS: BP 123/81; PULSE 83; RESP 18; TEMP 36.6
[2020-01-20] MEDS: Enoxaparin 40 MG/0.4 ML Syringe SC (10:25)
[2020-01-20] MEDS: Senna/Docusate Sodium 1 Tablet PO (10:25)
[2020-01-20] MEDS: Sertraline 50 MG Tablet PO (10:25)
[2020-01-20] MEDS: oxyCODONE 5 MG Tablet PO (10:31)
--- NOTE | 2020-01-20 13:16 | PCM.PN.OB ---
Subjective: doing well no complaints pain controlled no CP SOB N V ambulating well tolerating po lochia moderate, going well - Physical Exam Vitals/I&O's: Vital Signs Temp Pulse Resp BP Pulse Ox 97.8 F 83 18 123/81 H 97 01/20/20 08:45 01/20/20 08:45 01/20/20 08:45 01/20/20 08:45 01/20/20 02:31 Oxygen Delivery Method Room Air Weight: 296 lb 1.293 oz Body Mass Index (BMI) 49.2 Intake and Output for Last 24 Hours 01/18/20 01/19/20 01/20/20 23:59 23:59 23:59 Intake Total 2984 / 2984 Output Total 1500 / 1500 600 / 600 Balance 1484 / 1484 -600 / -600 General: Alert, Oriented x3 Current Medications Acetaminophen (Tylenol) 1,000 mg PO Q8H PRN PRN Reason: Pain Score 1-3/10 Bisacodyl (Dulcolax) 10 mg RECTAL UD PRN PRN Reason: If no BM Enoxaparin Sodium (Lovenox) 40 mg SC BID ROSA Last Admin: 01/20/20 10:25 Dose: 40 mg Documented by: Hydrocortisone (Hytone) 1 applic TOPICAL TID PRN PRN; Protocol PRN Reason: Discomfort Hydromorphone HCl (Dilaudid Inj) 1 mg IV Q3H PRN PRN PRN Reason: Pain Score 6-10/10 Naloxone HCl 4 mg/ Dextrose 504 mls @ 0 mls/hr IV .Q0M PRN; Protocol PRN Reason: Respiratory depression Methylergonovine Maleate (Methergine) 0.2 mg IM X1 PRN PRN Reason: Uterine Atony Naloxone HCl (Narcan) 0.02 mg IV Q1M PRN PRN Reason: RR <10 and pt unresponsive Naproxen (Naprosyn) 250 - 500 mg PO Q8H PRN PRN PRN Reason: Pain Score 1-3/10 Ondansetron HCl (Zofran) 4 mg IV Q4H PRN PRN PRN Reason: Nausea Oxycodone HCl (Oxyir) 5 - 10 mg PO Q4H PRN PRN PRN Reason: Pain Score 4-10/10 Last Admin: 01/20/20 10:31 Dose: 5 mg Documented by: Prochlorperazine Edisylate (Compazine Iv) 10 mg IV Q6H PRN PRN PRN Reason: NAUSEA Senna/Docusate Sodium (Senokot-S, Nancy-Colace) 0 tablet PO DAILY PRN PRN Reason: Constipation Last Admin: 01/20/20 10:25 Dose: 1 tablet Documented by: Sertraline HCl (Zoloft) 50 mg PO DAILY ROSA Last Admin: 01/20/20 10:25 Dose: 50 mg Documented by: Simethicone (Mylicon) 80 mg PO PCHS PRN PRN Reason: Indigestion/stomach pain Sodium Chloride () 5 - 15 ml IV UD PRN PRN Reason: SALINE FLUSH Last Admin: 01/20/20 08:49 Dose: 10 ml Documented by: Medical Necessity - Tobacco Use Smoking Status: Never smoker Assessment/Plan All Active Problems (Last Reviewed 01/12/20 @ 08:42 by Tiffanie Amaya) AMA (advanced maternal age) multigravida 35+ (Acute) Anemia affecting (Acute) Dermoid cyst of right ovary (Acute) History of (Acute) Supervision of other normal (Acute) (Acute) Depression (Acute) Galactorrhea (Resolved) Left ovarian cyst (Resolved) Tick bite (Resolved) s/p LTCS PPD # 2 1. routine post care 2. breast feeding- support given 3. rh positive 4. rubella immune
[2020-01-20 13:25] VITALS: BP 140/96; PULSE 95; RESP 16; TEMP 36.1
[2020-01-24 11:32] LABS: Pathology Specimen OB SEE PATHOLOGY REPORT
== END 2020-01-20 14:15 | disposition home or self-care (01) | DRG 788 ==
PROVIDERS: Admitting Provider Obstetrics & Gynecology; PCP Family Medicine; Referring Provider Obstetrics & Gynecology; Visit Provider Obstetrics & Gynecology
PROC: 10D00Z1 Extraction of Products of Conception, Low, Open Approach (ICD-10-PCS; CPT 59514; principal; 2020-01-18 07:15)
DX: O34.219 Maternal care for unspecified type scar from previous cesarean delivery (principal); O34.83 Maternal care for other abnormalities of pelvic organs, third trimester; N83.201 Unspecified ovarian cyst, right side; F32.9 Major depressive disorder, single episode, unspecified; O99.344 Other mental disorders complicating childbirth; Z37.0 Single live birth; Z3A.39 39 weeks gestation of pregnancy
CPT/HCPCS: 85025; 85027; 86850; 86900; 86901; 88305; 88307; 88311; 99218; J7120; A4216; G0378; J2405

== ENCOUNTER 2021-08-23 23:08 | Emergency (ER) | payer OTHER, SELFPAY ==
[2021-08-23 23:08] VITALS: BP 120/78; PULSE 79; RESP 16; TEMP 37; O2SAT 98; BMI 47.0
--- NOTE | 2021-08-23 23:16 | RAD_ITS ---
HISTORY: fall with pain, rule out fracture EXAMINATION/TECHNIQUE: XR Pelvis 1 or 2 Views: AP view COMPARISON: None FINDINGS: PELVIC BONES: No displaced fracture, destructive or sclerotic lesions. Note that overlapping bowel shadows may however obscure fine detail. Sacroiliac joints are unremarkable. No widening of the pubic symphisis. Mild degenerative changes lower lumbar spine. HIPS: Symmetric and adequately aligned bilateral hips with no dislocation or displaced fracture. Hip joint spaces are preserved. Small marginal osteophyte along lateral left acetabular rim. SOFT TISSUES: No soft tissue swelling or gas. RAD/Pelvis 1 or 2 Views IMPRESSION: No evidence of displaced pelvic or hip fracture. at 0023 Reported and signed by: Eduard Pavon MD Electronically Signed: Eduard Pavon MD at 0:22 EST Tel , Service support ,
--- NOTE | 2021-08-23 23:18 | EDS_ITS ---
HPI History of Present Illness Chief Complaint: Back Informant: patient Onset/Context/Timing Onset: Yesterday Current Severity: Moderate Maximum Severity: Severe Narrative Narrative: Patient presents secondary to low back pain. She states yesterday she was bent over in the shower washing her legs when she felt a sudden sharp pain in her lower back. She became lightheaded and felt as though she is 1 to pass out. helped her to a seat and after some time symptoms did subside. She had some mild pain in her low back throughout the evening. Today patient was trying to help her daughter off of the bed when she herself slid off the edge of the bed and fell to the ground. She had increased low back pain since that time and was unable to get up on her own. She does report pain radiating to both legs but not extending beyond the knee. No problems with bowel or bladder control. She took naproxen and Flexeril approximately 7 hours ago. [facility] Medical History Asthma Depression Migraines Home Medications sertraline 50 mg PO DAILY 01/23/16 [History Last Taken 11/30/19 07:30 1 tab] omega-3 fatty acids 1,000 mg capsule 1,000 mg PO DAILY 03/08/20 [History Last Taken Unknown] desogestrel 0.15 mg-ethinyl estradiol 0.03 mg tablet 1 tab PO QDAY #84 tab 06/17/21 [Rx Last Taken Unknown] [id number] carb-vit K [Women's Multivitamin] 1 tab PO DAILY 08/23/21 [Hist ory Last Taken Unknown] cyclobenzaprine 10 mg PO BID PRN #10 tab 08/24/21 [Rx Last Taken Unknown] hydrocodone-acetaminophen 1 tab PO Q6H PRN 3 Days #10 tab 08/24/21 [Rx Last Taken Unknown] naproxen [Naprosyn] 500 mg PO BID PRN #20 tab 08/24/21 [Rx Last Taken Unknown] Allergy/AdvReac Type Severity Reaction Status Date / Time No Known Allergies Allergy Verified 08/23/21 23:08 Family History Father Cancer prostate and skin Diabetes Parkinson disease Heart disease Myocardial infarction x2 Hypertension Breast cancer Mother Brain aneurysm Surgical History History of tonsillectomy and adenoidectomy Hx of section Status post myringotomy with insertion of tube Social History Smoking Status: Never smoker alcohol intake: never substance use type: does not use caffeine: No what type of physical activity do you participate in: walking frequency: 3-4 times per week seatbelt use: always do you feel safe at home: Yes additional social history: - [employer] 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[employer] ED Constitutional Constitutional ED: Denies chills or fever(s) Eyes Eyes: Denies change in vision ENT ENT ED: Denies sore throat Cardiovascular Cardiovascular: Denies chest pain Respiratory/Chest Respiratory/Chest: Denies cough or dyspnea Gastrointestinal Gastrointestinal: Denies abdominal pain, diarrhea, nausea or vomiting Genitourinary Genitourinary ED: Denies dysuria Musculoskeletal Musculoskeletal: Reports back pain Integumentary Denies rash Neurologic Neurologic: Denies headache(s), paresthesias or weakness Allergic/Immunologic Allergic/Immunologic ED: Denies urticaria EXAM Physical Exam Const Vital Signs: 08/23/21 23:08 Temperature 98.6 F Temperature Source Temporal Pulse Rate 79 Respiratory Rate 16 Blood Pressure 120/78 Blood Pressure Mean 92 Pulse Ox 98 Oxygen Delivery Method Room Air Positive well nourished and well developed General Appearance ED: well developed HEENT Reports normocephalic and head/scalp atraumatic Eyes PERRL and EOMs intact bilaterally Neck supple Chest Wall inspection of chest normal and palpation of chest normal Resp normal respiratory effort and clear to auscultation bilaterally Cardio regular rate and regular rhythm GI normal to inspection, nondistended, normoactive bowel sounds and non-tender Palpation: soft Back/Spine no CVA tenderness Back/Spine Narrative: Mild tenderness in the low lumbar midline as well as paraspinal region. No overlying skin change. Extremity normal to inspection Neuro oriented x3 and no sensory deficits noted Neuro Narrative: Strong distal pulses. Sensorium / Orientation: alert Motor Exam: strength 5/5 throughout Psych mental status grossly normal Skin no rashes or lesions noted MDM MDM MDM Narrative Medical decision making narrative: Patient had taken naproxen and Flexeril prior to arrival. Is not yet time for repeat dosing. She is given 1 tab of [place]. X-rays of the lumbar spine and pelvis obtained. Radiography Diagnostic Testing: Clinical Impression(s) from Imaging Studies Pelvis X-Ray 08/23/21 23:16 IMPRESSION: No evidence of displaced pelvic or hip fracture. at 0023 Reported and signed by: Eduard Pavon MD Electronically Signed: Eduard Pavon MD at 0:22 EST Tel , Service support , Lumbar Spine X-Ray 08/23/21 23:40 IMPRESSION: Mild lumbar scoliosis and mild spondylosis with no evidence of acute osseous injury. at 0024 Reported and signed by: Eduard Pavon MD Electronically Signed: Eduard Pavon MD at 0:23 EST Tel , Service support , Treatment and Re-Evaluation Comments:: X-rays reveal no obvious fracture. She does appear to have spasm. On repeat evaluation she is resting more comfortably. Patient will be given prescription for naproxen, Flexeril, [place]. Discharge Plan Triage Chief Complaint: Back ED Provider: Indu Velazquez Dx/Rx/DC Orders Clinical Impression: Back spasm Instructions: ED Back Pain (Acute or Chronic), ED Back Sprain/Strain Prescriptions: New naproxen [Naprosyn] 500 mg tablet 500 mg PO BID PRN (Reason: pain) Qty: 20 RF: 0 hydrocodone-acetaminophen 5-325 mg tablet 1 tab PO Q6H PRN (Reason: pain) 3 Days Qty: 10 RF: 0 cyclobenzaprine 10 mg tablet 10 mg PO BID PRN (Reason: muscle spasm) Qty: 10 RF: 0 No Action omega-3 fatty acids [Fish Oil Concentrate] 1,000 mg capsule 1,000 mg PO DAILY RF: 0 desogestrel-ethinyl estradiol [Apri] 0.15-0.03 mg tablet 1 tab PO QDAY Qty: 84 RF: 3 sertraline 50 MG tablet 50 mg PO DAILY RF: 0 Women's Multivitamin 18 mg iron-400 mcg-500 mg Tablet 1 tab PO DAILY RF: 0 Primary Care Provider: Eduard Garcia Referrals: Eduard Garcia MD [Primary Care Provider] - 1 Week if not improving Disposition Disposition: Home, Self Care
[2021-08-23] MEDS: HYDROcodone Bitartrate/Apap 5/325 Tablet PO (23:30)
--- NOTE | 2021-08-23 23:40 | RAD_ITS ---
HISTORY: pain, fall EXAMINATION/TECHNIQUE: XR Spine Lumbar 2 or 3 Views: AP, lateral and spot views COMPARISON: None FINDINGS: VERTEBRAE: Lumbar vertebral heights, alignment and lordosis are intact. There is minimal dextroscoliotic curvature of lumbar spine. No fracture demonstrated. Multilevel small endplate osteophytes. Lower lumbar degenerative facet arthropathy. DISCS: Disc spaces are maintained. INCLUDED ABDOMEN: Included bowel gas pattern is non-obstructive. RAD/Lumbar Spine 2 or 3 Views IMPRESSION: Mild lumbar scoliosis and mild spondylosis with no evidence of acute osseous injury. at 0024 Reported and signed by: Eduard Pavon MD Electronically Signed: Eduard Pavon MD at 0:23 EST Tel , Service support ,
[2021-08-24 00:45] VITALS: RESP 16
== END 2021-08-24 00:46 | disposition home or self-care (01) ==
PROVIDERS: Emergency Provider Emergency Medicine; PCP Family Medicine
DX: M62.830 Muscle spasm of back (principal); R42 Dizziness and giddiness; F32.A Depression, unspecified; J45.909 Unspecified asthma, uncomplicated; G43.909 Migraine, unspecified, not intractable, without status migrainosus; Z79.899 Other long term (current) drug therapy
CPT/HCPCS: 72100; 72170; 99283

== ENCOUNTER 2022-08-20 10:05 | Outpatient (CLI) | payer OTHER, SELFPAY ==
[2022-08-20 10:19] LABS: Absolute Lymphocyte Count 2.09 X10^3/uL (0.83-4.51); Absolute Neutrophil Count 6.1 X10^3/uL (2.0-7.7); Basophil# 0.04 X10^3/uL; Basophil% 0.4 % (0-1); Eosinophil# 0.19 X10^3/uL; Eosinophils% 2.1 % (0-5); Hematocrit 39.8 % (37-47); Hemoglobin 13.2 g/dL (12.0-15.0); Lymphocyte # 2.09 X10^3/ul (0.83-4.51); Lymphocyte % 23.2 % (19-41); Mean Corp Hgb Conc 33.2 g/dL (32-36); Mean Corpuscular Volume 87.5 fL (81-99); Mean Platelet Vol. 9.9 fl (6.2-12.0); Monocyte# 0.55 X10^3/uL; Monocyte% 6.1 % (0-10); NRBC Flagged by Analyzer 0 % (0-5); Neutrophil % 67.8 % (47-70); Platelet Count 445 K/mm3 (150-450); RBC Distribution Width CV 12.2 % (11.6-14.6); RBC Distribution Width SD 39.2 fl (35.1-43.9); Red Blood Count 4.55 M/mm3 (4.2-5.4)
[2022-08-20 11:14] LABS: T4 Free Direct 0.98 ng/dL (0.76-1.46); Thyroid Stim Hormone (TSH) 1.89 uIU/mL (0.358-3.74)
[2022-08-25 12:08] LABS: Testosterone Free 0.2 pg/mL (0.0-4.2)
[2022-08-25 12:28] LABS: Thyroid Peroxidase AB 9 IU/mL (0-34)
== END 2022-08-20 23:59 | disposition home or self-care (01) ==
PROVIDERS: PCP Family Medicine; Referring Provider Nurse Practitioner Women's Health; Visit Provider Nurse Practitioner Women's Health
DX: Z13.29 Encounter for screening for other suspected endocrine disorder (principal); R23.2 Flushing; L70.9 Acne, unspecified
CPT/HCPCS: 36415; 82627; 84402; 84439; 84443; 85025; 86376; 82626

== ENCOUNTER → 2023-01-27 | Outpatient (CLI) | payer OTHER, SELFPAY ==
--- NOTE | 2023-01-27 08:03 | BI_ITS ---
MAMMOGRAPHY - BILATERAL SCREENING REASON FOR EXAM: Female, 37 years old. Routine annual screening examination. PERTINENT HISTORY: History of father with breast cancer. TECHNIQUE: Digital bilateral breast estefania (3D mammographic acquisition) in the CC and MLO projections. 2-D mediolateral oblique (MLO) and craniocaudad (CC) views of both breasts were obtained. CAD: Full Field Digital Mammography with Computer Added Detection was performed. COMPARISON: Comparison is made with prior study dated April 27, 2018. FINDINGS: Breast Composition: There are scattered areas of fibroglandular density. There are no dominant masses or suspicious calcifications. No other significant abnormalities are identified. There has been no significant change since the prior study. BI/SCRN MAMM (CAD)W/ESTEFANIA BILAT IMPRESSION: Stable bilateral screening mammogram. Yearly follow-up mammogram recommended. (A) ASSESSMENT CATEGORY: BIRADS Category 1: Negative. A letter regarding these results will be sent to the patient by the facility within 30 days. Approximately 10% of breast cancers are not detected by mammography. A normal mammogram should not delay biopsy of a clinically suspicious abnormality. [id number] Electronically Signed: Terrance Briones MD at 8:57 EDT ,
== END | disposition home or self-care (01) ==
LOC: OPBI 08:01
PROVIDERS: PCP Family Medicine; Referring Provider Nurse Practitioner Women's Health; Visit Provider Nurse Practitioner Women's Health
DX: Z12.31 Encounter for screening mammogram for malignant neoplasm of breast (principal); Z84.81 Family history of carrier of genetic disease
CPT/HCPCS: 77063; 77067

== ENCOUNTER 2023-10-27 16:46 | Outpatient (CLI) | payer OTHER, SELFPAY ==
--- OUTSIDE RECORDS SUMMARY | 2023-10-27 17:30 | XMS RPT_ITS | CCD ---
Author Name Unknown Address [address] [place] [address] Organization [facility] Care Team Providers Care Adult Secondary Education Instructor Name Role Phone Radha PACKER, Carolina Farmer Unavailable Cee Driscoll MD Primary Care Provider Cee Driscoll MD Primary Care Provider Cee Driscoll MD Primary Care Provider CEE DRISCOLL Primary Care Unavailable JOHN REYES Referring Unavailable CEE DRISCOLL Primary Care Unavailable CEE DRISCOLL Primary Care Unavailable BROOKE BURNETT Attending Unavailable CEE DRISCOLL Primary Care Unavailable BROOKE BURNETT Referring Unavailable CEE DRISCOLL Primary Care Unavailable KATHY FORD Attending Unavailable CEE DRISCOLL Primary Care Unavailable Allergies Allergy Classification Reported Allergen(s) Allergy Type Date of Onset Reaction(s) Facility (2 sources) PAIN MEDICATION drug allergy 7 High Tolerance to pain medications [facility] (10 sources) Seasonal allergy; Translations: [SEASONAL ALLERGIES] Propensity to adverse reactions 2 Other: See Comments [facility] Medications Completed/Discontinued Medications Medication Drug Class(es) Dates Sig (Normalized) Sig (Original) 24 hr buPROPion hydrochloride 150 mg extended release oral tablet (12 sources) Aminoketone Start: 12-11-2022 End: 09-08-2023 take 1 tablet by mouth once daily buPROPion XL (WELLBUTRIN XL) 150 mg 24 hr tablet Indications: Recurrent major depression in partial remission (HCC) Take 1 tablet by mouth once daily. 7 tablet 0 12/23/2022 09/08/2023 Discontinued Problems Active Problems Problem Classification Problem Date Documented Date Episodic/Chronic Diabetes mellitus without complication (2 sources) Prediabetes; Translations: [Prediabetes] Onset: 10-13-2022 Episodic Headache; including migraine (1 source) Migraine with aura; Translations: [Migraine with aura, not intractable, without status migrainosus] Chronic Immunizations and screening for infectious disease (1 source) Immunization due; Translations: [Encounter for immunization] Episodic Mood disorders (13 sources) Recurrent major depression in partial remission; Translations: [Major depressive disorder, recurrent, in partial remission] Onset: 02-26-2017 02-26-2017 Chronic Other injuries and conditions due to external causes (1 source) Injury of right wrist; Translations: [Unspecified injury of right wrist, hand and finger(s), initial encounter] Episodic Other injuries and conditions due to external causes (1 source) Unspecified injury of right wrist, hand and finger(s), initial encounter; Translations: [Injury of right wrist, initial encounter] Onset: 12-17-2022 Episodic Residual codes; unclassified (1 source) Difficulty sleeping ; Translations: [Sleep disorder, unspecified] Episodic Unclassified (1 source) Gynecologic examination ; Translations: [Encounter for gynecological examination (general) (routine) without abnormal findings] Onset: 05-18-2017 05-18-2017 Past or Other Problems Problem Classification Problem Date Documented Date Episodic/Chronic Contraceptive and procreative management (2 sources) Oral contraceptive prescribed; Translations: [Encounter for initial prescription of contraceptive pills] Onset: 05-18-2017 05-18-2017 Episodic Other nutritional; endocrine; and metabolic disorders (9 sources) Overweight; Translations: [Overweight] Onset: 11-06-2011 11-06-2011 Episodic Other screening for suspected conditions (not mental disorders or infectious disease) (11 sources) Decreased vitamin D; Translations: [Other specified abnormal findings of blood chemistry] Onset: 11-09-2020 11-09-2020 Episodic Results Test Name Value Interpretation Reference Range Facil ity Vital Signs Date Time Vital Sign Value Performing Clinician Facility 12-17-2022 16:06-0400 Body temperature 98.6 [degF] John Reyes APRN.CNP Work Phone: [facility] 12-17-2022 16:06-0400 Body weight 121.2 kg John Reyes APRN.CNP Work Phone: [facility] 12-17-2022 16:06-0400 Diastolic blood pressure 80 mm[Hg] John Melissalejen CARBIDE OPERATOR.OCCUPATIONAL HEALTH NURSE MANAGER Work Phone: [facility] 12-17-2022 16:06-0400 Heart rate 94 /min John Reyes CARBIDE OPERATOR.OCCUPATIONAL HEALTH NURSE MANAGER Work Phone: [facility] 12-17-2022 16:06-0400 Respiratory rate 21 /min John Reyes CARBIDE OPERATOR.OCCUPATIONAL HEALTH NURSE MANAGER Work Phone: [facility] 12-17-2022 16:06-0400 SaO2% (BldA) [Mass fraction] 99 % John Reyes CARBIDE OPERATOR.OCCUPATIONAL HEALTH NURSE MANAGER Work Phone: [facility] 12-17-2022 16:06-0400 Systolic blood pressure 120 mm[Hg] John Reyes CARBIDE OPERATOR.OCCUPATIONAL HEALTH NURSE MANAGER Work Phone: [facility] 10-13-2022 09:22-0500 Body height 166.4 cm Brooke Andrei CARBIDE OPERATOR.OCCUPATIONAL HEALTH NURSE MANAGER Work Phone: [facility] 10-13-2022 09:22-0500 Body temperature 97.3 [degF] Brooke Andrei CARBIDE OPERATOR.OCCUPATIONAL HEALTH NURSE MANAGER Work Phone: [facility] 10-13-2022 09:22-0500 Body weight 119.3 kg Brooke Andrei CARBIDE OPERATOR.OCCUPATIONAL HEALTH NURSE MANAGER Work Phone: [facility] 10-13-2022 09:22-0500 Diastolic blood pressure 77 mm[Hg] Brooke Andrei CARBIDE OPERATOR.OCCUPATIONAL HEALTH NURSE MANAGER Work Phone: [facility] 10-13-2022 09:22-0500 Heart rate 98 /min Brooke Andrei CARBIDE OPERATOR.OCCUPATIONAL HEALTH NURSE MANAGER Work Phone: [facility] 10-13-2022 09:22-0500 Respiratory rate 16 /min Brooke Andrei CARBIDE OPERATOR.OCCUPATIONAL HEALTH NURSE MANAGER Work Phone: [facility] 10-13-2022 09:22-0500 SaO2% (BldA) [Mass fraction] 99 % Brooke Burnett APRN.CNP Work Phone: [facility] 10-13-2022 09:22-0500 Systolic blood pressure 119 mm[Hg] Brooke Burnett APRN.CNP Work Phone: [facility] 05-18-2017 08:06-0400 BMI (Body Mass Index) 43.83 kg/m2 Carolina Garcia NP [facility] 05-18-2017 08:06-0400 Body Temperature 97.8 [degF] Carolina Garcia PHARMACOGENETICIST [facility] 05-18-2017 08:06-0400 BP Diastolic 84 mm[Hg] Carolina Garcia PHARMACOGENETICIST [facility] 05-18-2017 08:06-0400 BP Systolic 128 mm[Hg] Carolina Garcia PHARMACOGENETICIST [facility] 05-18-2017 08:06-0400 Height 165.1 cm Carolina Garcia NP [facility] 05-18-2017 08:06-0400 Pulse (Heart Rate) 91 /min Carolina Garcia PHARMACOGENETICIST [facility] 05-18-2017 08:06-0400 Respiratory Rate 17 /min Carolina Garcia NP [facility] 05-18-2017 08:06-0400 Weight 119.48 kg Carolina Garcia NP [facility] Encounters Encounter Date Encounter Type Care Provider Facility Start: 09-08-2023 ambulatory Brooke GUERRA RN.ASHIA Work Phone: [facility] Procedures Date Procedure Procedure Detail Performing Clinician Start: 10-13-2022 PFIZER-BIONTECH COVID-19 BIVALENT BOOSTER VACCINE, AGE 12+ YR Brooke Burnett APRN.CNP Work Phone: Start: 06-21-2022 INFLUENZA VACCINE QUADRIVALENT 6 MO - 64 YRS IM Jazmine Ashraf MD Work Phone: Start: 05-18-2017 Gynecologic examination Routine gynecological examination Carolina Garcia NP Plan of Treatment Date Care Activity Detail Author Start: 10-21-[address] [facility] Start: 10-31-2025 Urine microalbumin profile DTA P,TDAP,TD (2 - Td or Tdap) [facility] Start: 06-27-2024 HPV TESTING HPV TESTING [facility] Start: 06-27-2024 PAP TESTING PAP TESTING [facility] Start: 06-27-2024 Screening for malign ant neoplasm of cervix [facility] Start: 10-13-2023 HEPATITIS C SCREENING HEPATITIS C [facility] Immunizations Immunization Date Immunization Notes Care Provider Heidy blackwood 10-13-2022 COVID-19 booster vaccine, age 12+ yr, bivalent (PFIZER-BIONTECH) Brooke Andrei CARBIDE OPERATOR.OCCUPATIONAL HEALTH NURSE MANAGER Work Phone: [facility] 06-21-2022 influenza, injectabl e, quadrivalent, contains preservative Immunization [facility]ra Work Phone: [facility] 06-21-2022 influenza virus vaccine, unspecified formulation Brooke Andrei CARBIDE OPERATOR.OCCUPATIONAL HEALTH NURSE MANAGER Work Phone: [facility] 09-25-2021 COVID-19 vaccine, ag e 12+ yr (PFIZER-BIONTECH - PURPLE TOP) Hailey Vo PA-C Work Phone: [facility] 06-29-2021 influenza, injectabl e, quadrivalent, contains preservative Hailey Vo PA-C Work Phone: [facility] 12-28-2020 COVID-19 vaccine, ag e 12+ yr (PFIZER-BIONTECH - PURPLE TOP) Hailey Vo PA-C Work Phone: [facility] 11-30-2020 COVID-19 vaccine, ag e 12+ yr (PFIZER-BIONTECH - PURPLE TOP) Hailey Vo PA-C Work Phone: [facility] 06-01-2020 influenza, seasonal, injectable Hailey Vo PA-C Work Phone: [facility] 10-21-2019 tetanus toxoid, reduced diphtheria toxoid, and acellular pertussis vaccine, adsorbed Brooke Burnett CARBIDE OPERATOR.OCCUPATIONAL HEALTH NURSE MANAGER Work Phone: [facility] 07-06-2019 influenza, seasonal, injectable Hailey Vo PA-C Work Phone: [facility] 10-31-2015 tetanus toxoid, reduced diphtheria toxoid, and acellular pertussis vaccine, adsorbed Hailey Vo PA-C Work Phone: [facility] Work Phone: 07-02-2015 influenza, seasonal, injectable Hailey Vo PA-C Work Phone: [facility] 11-05-2009 tetanus toxoid, reduced diphtheria toxoid, and acellular pertussis vaccine, adsorbed Brooke Andrei CARBIDE OPERATOR.OCCUPATIONAL HEALTH NURSE MANAGER Work Phone: [facility] Payers Date Payer Category Payer Private Health Insurance MERT MAI CORY [id number] 2018-Present [phone] [address] [place] [address] Open Access [id number] 2018 Private Health Insurance MERT MAI OAKaley [id number] 2018-Present [phone] [address] [place] [address] Open Access [id number] 2018 Private Health Insurance [id number] Social History Date Type Detail Facility Start: 08-28-2011 Tobacco smoking status NHIS Never smoked tobacco [facility] Start: 10-24-2020 End: 12-17-2022 Alcohol intake Current non-drinker of alcohol (finding) [facility] Start: 10-25-2020 End: 10-12-2022 History SDOH Alcohol Frequency 1 [facility] Start: 10-25-2020 End: 10-12-2022 History SDOH Social Connections Phone [address] [facility] Start: 10-25-2020 End: 10-12-2022 History SDOH Social Connections Get Together 3 [facility] Start: 10-25-2020 End: 10-12-2022 History SDOH Physical Activity DPW [address] [facility] Start: 10-25-2020 History SDOH Stress [address] [facility] Start: 10-24-[address] [facility] Start: 1985 Sex Assigned At Female [facility] Start: 08-28-2011 Tobacco use and exposure Smokeless tobacco non-user [facility] Work Phone: Start: 10-12-2022 History SDOH Stress 5 [facility] Start: 10-12-2022 End: 11-16-2022 History of [address] function [facility] Start: 10-12-2022 End: 11-16-2022 Social connection and isolation panel [facility] Do you belong to any clubs or organizations such as islam groups, unions, fraternal or athletic groups, or school groups? Yes [facility] Are you now , , , , never or living with a partner? [facility] How often to you hav e a drink containing alcohol? Never [facility] How many standard dr inks containing alcohol do you have on a typical day? Patient does not drink [facility] How hard is it for y ou to pay for the very basics like food, housing, medical care, and heating Somewhat hard [facility] Do you feel stress - tense, restless, nervous, or anxious, or unable to sleep at night because your mind is troubled all the time - these days [OSQ] Very much [facility] (I/We) worried whejeff er (my/our) food would run out before (I/we) got money to buy more. Sometimes true [facility] The food that (I/we) bought just didn't last, and (I/we) didn't have money to get more. Never true [facility] In the past 12 month s, was there a time when you were not able to pay the mortgage or rent on time? No [facility] Start: 01-17-2019 Gender identity Identifies as female gender (finding) [facility] Start: 01-17-2019 Sexual orientation Heterosexual (finding) [facility] Clinical Notes 11-14-2015 to 09-08-2023 Telephone Encounter - Brooke Burnett APRN.CNP - 09/08/2023 12:23 PM ESTTelephone Encounter - Melanie Sheikh LPN - 09/08/2023 11:33 AM Estefania Reyes APRN.CNP - 12/17/2022 4:08 PM EDT Note Date & Type Note [facility] 09-08-2023 Miscellaneous Notes The following approved medication requests have been transmitted electronically. Requested Prescriptions Pending Prescriptions Disp Refills buPROPion XL (WELLBUTRIN XL) 150 mg 24 hr tablet 90 tablet 1 Sig: Take 1 tablet by mouth once daily. Brooke Burnett APRN.CNP Patient has been identified by name and date of : Yes Patient phones for refill(s): Requested Prescriptions Pending Prescriptions Disp Refills buPROPion XL (WELLBUTRIN XL) 150 mg 24 hr tablet 7 tablet 0 Sig: Take 1 tablet by mouth once daily. Date of last office visit in primary care: 10/13/2022 Date of next office visit in primary care: Visit date not found Please advise. Thank you. Melanie Sheikh LPN. documented in this encounter [facility] 12-23-2022 Miscellaneous Notes The following approved medication requests have been transmitted electronically. Requested Prescriptions Pending Prescriptions Disp Refills buPROPion XL (WELLBUTRIN XL) 150 mg 24 hr tablet 7 tablet 0 Sig: Take 1 tablet by mouth once daily. Brooke Burnett APRN.CNP Celi is requesting a short term supply to the local pharmacy. She states she has gotten approval for 7 days be her insurance. Pharmacy verified in [facility] Patient has been identified by name and date of : Yes Patient aware RX will be sent to pharmacy. No need to notify patient. Patient phones for refill(s): Requested Prescriptions Pending Prescriptions Disp Refills buPROPion XL (WELLBUTRIN XL) 150 mg 24 hr tablet 7 tablet 0 Sig: Take 1 tablet by mouth once daily. Date of last office visit : 10/13/2022 Date of next office visit : Visit date not found Last 2 Encounter Wt Readings: Date: Wt: 12/17/2022 121.2 kg (267 lb 3.2 oz) 10/13/2022 119.3 kg (263 lb) Not applicable Please advise. Indu Ocampo Pss documented in this encounter [facility] 12-17-2022 Note HNO ID: [id number] Author: RT Fiona(R) Service: ? Author Type: Dedicated Truck Driver Type: Progress Notes Filed: 12/17/2022 4:30 PM Note Text: Radiology Service Progress Note PATIENT NAME: Celi Frederick DATE OF SERVICE: December 17, 2022 TIME: 4:30 PM PATIENT IDENTITY VERIFICATION COMPLETED USING TWO (2) IDENTIFIERS: Name and Date of confirmed by patient verbally. FALL SCREENING: Has the patient had 2 falls in the last year or 1 fall with injury or currently using an Ambulatory Assistive Device (Walker, Cane, Wheelchair, Crutches, etc.)? No PATIENT GENDER DATA: Female. status: : No status: NO. PATIENT RELEVANT IMPLANT DATA REVIEWED: Yes RADIOLOGY DEPARTMENT: General X-ray: Exam(s) Completed: Upper Extremity X-Ray(s): Wrist, right PERIPHERAL IV DATA: Not applicable SIGNED BY: RT Fiona(R) December 17, 2022 4:30 PM [facility] 12-17-2022 Note HNO ID: [id number] Author: John Reyes APRN.OCCUPATIONAL HEALTH NURSE MANAGER Service: ? Author Type: Nurse Practitioner Type: Progress Notes Filed: 12/17/2022 4:49 PM Note Text: Subjective HPI Nontoxic-appearing female presents urgent care chief complaint right wrist pain. Duration of symptoms 1 day. Associated symptoms right wrist pain. Patient states pain started after helping with her son's baseball practice. Patient states she was pitching that evening. Noticed some wrist discomfort that evening after practice. Woke up this morning with increased wrist comfort. Has not used any OTC medications. Has used a brace. This is helped some. No numbness no tingling. No decrease sensation. No decreased strength. Denies history of fractures or surgeries to wrist or hand in the past. Does have increased pain with movements. Does have point tenderness over extensor tendon of her thumb. Denies any fever body aches chills productive cough chest pain shortness of breath pleuritic pain hemoptysis nausea vomiting abdominal pain change in bowel or bladder habits. Past medical history prescription medication use and allergies reviewed. .Patient presents with: Trauma: Right wrist pain,after throwing baseballs x 1 day PAST MEDICAL HISTORY Diagnosis Date Depressive disorder, not elsewhere classified 2005 Following job loss Migraine Seasonal allergies PAST SURGICAL HISTORY Procedure Laterality Date ADENOIDECTOMY PRIMARY Adenoidectomy DELIVERY ONLY 01/23/16 , low transverse TONSILLECTOMY PRIMARY/SECONDARY Tonsillectomy ALLERGIES Seasonal Allergies MEDICATIONS buPROPion XL (WELLBUTRIN XL) 150 mg 24 hr tablet Take 1 tablet by mouth once daily. traZODone (DESYREL) 50 mg tablet Take 1 tablet by mouth daily at bedtime. ENSKYCE 0.15-0.03 mg per tablet Take 1 tablet by mouth once daily. loratadine (CLARITIN) 10 mg tablet Take 10 mg by mouth once daily. docosahexaenoic acid/epa (FISH OIL ORAL) Take 1 tablet by mouth once daily. ferrous sulfate 325 mg (65 mg iron) tablet Take 325 mg by mouth once daily. rizatriptan (MAXALT) 10 mg tablet Take 1 tablet by mouth as needed for migraine headache (see administration instructions). multivitamin tablet Take 1 tablet by mouth once daily. sertraline (ZOLOFT) 50 mg tablet Take 1 tablet by mouth once daily. (Patient not taking: Reported on 12/17/2022) SPRINTEC 0.25-35 mg-mcg per tablet TAKE 1 TABLET BY MOUTH EVERY DAY (Patient not taking: Reported on 11/29/2019) VIT/IRON FUMARATE/FA ( ORAL) Take by mouth. FAMILY HISTORY Problem Relation Age of Onset Arthritis Father Cancer Father Prostate Diabetes Father Coronary Artery Disease Father other (Other [Other]) Mother Brain hemorhage Headache Mother Aneurysm Breast Cancer Father Cancer Father Skin other (Parkinson's Disease [Other]) Father Social History Tobacco Use Smoking status: Never Smokeless tobacco: Never Substance Use Topics Alcohol use: No Drug use: No BP 120/80 Pulse 94 Temp 37 ?C (98.6 ?F) Resp 21 Wt 121.2 kg (267 lb 3.2 oz) LMP 09/15/2022 (Exact Date) SpO2 99% BMI 43.79 kg/m? Review of Systems Constitutional: Negative for chills, fever and malaise/fatigue. HENT: Negative for congestion, ear discharge, ear pain, sinus pain and sore throat. Eyes: Negative for blurred vision, pain, discharge and redness. Respiratory: Negative for cough, hemoptysis, sputum production, shortness of breath, wheezing and stridor. Cardiovascular: Negative for chest pain. Gastrointestinal: Negative for abdominal pain, diarrhea, nausea and vomiting. Musculoskeletal: Positive for joint pain. Negative for falls and myalgias. Skin: Negative for itching and rash. Neurological: Negative for dizziness and headaches. Objective Physical Exam Constitutional: General: She is not in acute distress. Appearance: She is not diaphoretic. HENT: Head: Normocephalic. Eyes: Conjunctiva/sclera: Conjunctivae normal. Pupils: Pupils are equal, round, and reactive to light. Cardiovascular: Rate and Rhythm: Normal rate and regular rhythm. Heart sounds: Normal heart sounds. Pulmonary: Effort: Pulmonary effort is normal. No tachypnea, accessory muscle usage or respiratory distress. Breath sounds: Normal breath sounds. No stridor. No wheezing, rhonchi or rales. Musculoskeletal: Right forearm: Normal. Right wrist: Tenderness and bony tenderness present. No swelling, deformity or snuff box tenderness. Decreased range of motion. Normal pulse. Left wrist: Normal. Right hand: Normal. Cervical back: Normal range of motion. Comments: No pain with palpation to MCP joint thumb. No elasticity in ulnar collateral ligament. Neurovascular intact. No weaknesses noted. Skin: General: Skin is warm and dry. Neurological: Mental Status: She is alert and oriented to person, place, and time. ASSESSMENT/PLAN: 1. Injury of right wrist, ini (more content not included)... [facility] 12-17-2022 History of Presen t illness Narrative Subjective HPI Nontoxic-appearing female presents urgent care chief complaint right wrist pain. Duration of symptoms 1 day. Associated symptoms right wrist pain. Patient states pain started after helping with her son's baseball practice. Patient states she was pitching that evening. Noticed some wrist discomfort that evening after practice. Woke up this morning with increased wrist comfort. Has not used any OTC medications. Has used a brace. This is helped some. No numbness no tingling. No decrease sensation. No decreased strength. Denies history of fractures or surgeries to wrist or hand in the past. Does have increased pain with movements. Does have point tenderness over extensor tendon of her thumb. Denies any fever body aches chills productive cough chest pain shortness of breath pleuritic pain hemoptysis nausea vomiting abdominal pain change in bowel or bladder habits. Past medical history prescription medication use and allergies reviewed. .Patient presents with: Trauma: Right wrist pain,after throwing baseballs x 1 day PAST MEDICAL HISTORY Diagnosis Date Depressive disorder, not elsewhere classified 2005 Following job loss Migraine Seasonal allergies PAST SURGICAL HISTORY Procedure Laterality Date ADENOIDECTOMY PRIMARY <AGE 12 1987 Adenoidectomy DELIVERY ONLY 01/23/16 , low transverse TONSILLECTOMY PRIMARY/SECONDARY <AGE 12 2004 Tonsillectomy ALLERGIES Seasonal Allergies MEDICATIONS buPROPion XL (WELLBUTRIN XL) 150 mg 24 hr tablet Take 1 tablet by mouth once daily. traZODone (DESYREL) 50 mg tablet Take 1 tablet by mouth daily at bedtime. ENSKYCE 0.15-0.03 mg per tablet Take 1 tablet by mouth once daily. loratadine (CLARITIN) 10 mg tablet Take 10 mg by mouth once daily. docosahexaenoic acid/epa (FISH OIL ORAL) Take 1 tablet by mouth once daily. ferrous sulfate 325 mg (65 mg iron) tablet Take 325 mg by mouth once daily. rizatriptan (MAXALT) 10 mg tablet Take 1 tablet by mouth as needed for migraine headache (see administration instructions). multivitamin tablet Take 1 tablet by mouth once daily. sertraline (ZOLOFT) 50 mg tablet Take 1 tablet by mouth once daily. (Patient not taking: Reported on 12/17/2022) SPRINTEC 0.25-35 mg-mcg per tablet TAKE 1 TABLET BY MOUTH EVERY DAY (Patient not taking: Reported on 11/29/2019) VIT/IRON FUMARATE/FA ( ORAL) Take by mouth. FAMILY HISTORY Problem Relation Age of Onset Arthritis Father Cancer Father Prostate Diabetes Father Coronary Artery Disease Father other (Other [Other]) Mother Brain hemorhage Headache Mother Aneurysm Breast Cancer Father Cancer Father Skin other (Parkinson's Disease [Other]) Father Social History Tobacco Use Smoking status: Never Smokeless tobacco: Never Substance Use Topics Alcohol use: No Drug use: No BP 120/80 Pulse 94 Temp 37 C (98.6 F) Resp 21 Wt 121.2 kg (267 lb 3.2 oz) LMP 09/15/2022 (Exact Date) SpO2 99% BMI 43.79 kg/m Review of Systems Constitutional: Negative for chills, fever and malaise/fatigue. HENT: Negative for congestion, ear discharge, ear pain, sinus pain and sore throat. Eyes: Negative for blurred vision, pain, discharge and redness. Respiratory: Negative for cough, hemoptysis, sputum production, shortness of breath, wheezing and stridor. Cardiovascular: Negative for chest pain. Gastrointestinal: Negative for abdominal pain, diarrhea, nausea and vomiting. Musculoskeletal: Positive for joint pain. Negative for falls and myalgias. Skin: Negative for itching and rash. Neurological: Negative for dizziness and headaches. Objective Physical Exam Constitutional: General: She is not in acute distress. Appearance: She is not diaphoretic. HENT: Head: Normocephalic. Eyes: Conjunctiva/sclera: Conjunctivae normal. Pupils: Pupils are equal, round, and reactive to light. Cardiovascular: Rate and Rhythm: Normal rate and regular rhythm. Heart sounds: Normal heart sounds. Pulmonary: Effort: Pulmonary effort is normal. No tachypnea, accessory muscle usage or respiratory distress. Breath sounds: Normal breath sounds. No stridor. No wheezing, rhonchi or rales. Musculoskeletal: Right forearm: Normal. Right wrist: Tenderness and bony tenderness present. No swelling, deformity or snuff box tenderness. Decreased range of motion. Normal pulse. Left wrist: Normal. Right hand: Normal. Cervical back: Normal range of motion. Comments: No pain with palpation to MCP joint thumb. No elasticity in ulnar collateral ligament. Neurovascular intact. No weaknesses noted. Skin: General: Skin is warm and dry. Neurological: Mental Status: She is alert and oriented to person, place, and time. ASSESSMENT/PLAN: 1. Injury of right wrist, initial encounter - ICD9: 959.3, ICD10: S69.91XA - XR WRIST INJURY 4V PA/LAT/OBL/SCAPH RIGHT No abnormal findings noted on x-ray. Suspicious of tendinitis. Treat conservative at this time. Will use thumb spica over the next 5 to 7 days. Gradually increase range of motion and movement as tolerated. Follow-up with PCP if symptoms are not improving 7 to 10 days. Red flags prompt reevaluation discussed. Supportive therapies discussed. Patient verbalized understand agrees with plan of care. John Reyes APRN.ASHIA documented in this encounter [facility] 11-19-2022 Note HNO ID: [id number] Author: Kathy Ford APRN.ASHIA Service: ? Author Type: Nurse Practitioner Type: Progress Notes Filed: 11/19/2022 7:08 PM Note Text: 11/19/2022 Patient presents with: Sleep Problem In lieu of an in person visit due to coronavirus 19 pandemic concerns, a telephone/video visit was performed with patient. Patient is aware that I am not fully able to assess symptoms and do a full physical exam including vital signs at this time. Patient consents to the visit SUBJECTIVE: This is a 36 year old that is here today for Above Complaints. Switched from Zoloft to Wellbutrin at last appointment. Improved night sweats and night terrors. Still with difficulty falling and staying sleep. Has tried melatonin in the past but made her have night terrors. Feels depression is controlled well. PAST MEDICAL HISTORY Diagnosis Date Depressive disorder, not elsewhere classified 2005 Following job loss Migraine Seasonal allergies ALLERGIES Seasonal Allergies MEDICATIONS Current Outpatient Medications Medication Sig ENSKYCE 0.15-0.03 mg per tablet Take 1 tablet by mouth once daily. loratadine (CLARITIN) 10 mg tablet Take 10 mg by mouth once daily. docosahexaenoic acid/epa (FISH OIL ORAL) Take 1 tablet by mouth once daily. ferrous sulfate (FEOSOL) 325 mg (65 mg iron) tablet Take 325 mg by mouth once daily. sertraline (ZOLOFT) 50 mg tablet Take 1 tablet by mouth once daily. buPROPion XL (WELLBUTRIN XL) 150 mg 24 hr tablet Take 1 tablet by mouth once daily. rizatriptan (MAXALT) 10 mg tablet Take 1 tablet by mouth as needed for migraine headache (see administration instructions). multivitamin tablet Take 1 tablet by mouth once daily. SPRINTEC 0.25-35 mg-mcg per tablet TAKE 1 TABLET BY MOUTH EVERY DAY (Patient not taking: Reported on 11/29/2019) VIT/IRON FUMARATE/FA ( ORAL) Take by mouth. No current facility-administered medications for this visit. Medications and allergies reviewed by this provider. SOCIAL HISTORY Social History Tobacco Use Smoking status: Never Smokeless tobacco: Never Substance Use Topics Alcohol use: No Drug use: No REVIEW OF SYSTEMS All other reviewed and negative other than HPI. OBJECTIVE: LMP 09/15/2022 (Exact Date) . Vital signs reviewed by this provider. APPEARANCE Well appearing, alert, in no acute distress, well-hydrated, well nourished. PSYCH: Posture and motor behavior: normal posture and motor behavior Dress, grooming, personal hygiene: normal dress and grooming Facial expression: smiling and good eye contact Speech: normal speech Mood: cheerful Coherency and relevance of thought: normal thought processes Memory: normal memory HEPATITIS B(1 of 3 - 3-dose series) Never done HEPATITIS C SCREENING due on 10/13/2023 PAP TESTING due on 06/27/2024 HPV TESTING due on 06/27/2024 DTAP,TDAP,TD(4 - Td or Tdap) due on 10/21/2029 INFLUENZA Completed HIV SCREENING Completed COVID-19 VACCINE Completed ASSESSMENT/PLAN: 1. Sleeping difficulty - ICD9: 780.50, ICD10: G47.9 - sleep hygiene discussed - TRAZODONE 50 MG TABLET- common side effects discussed, verbalizes understanding - follow-up if symptoms fail to improve Kathy Liulogjanet, CARBIDE OPERATOR.OCCUPATIONAL HEALTH NURSE MANAGER Prescription instructions reviewed with patient as applicable. Patient advised if symptoms do not improve or if symptoms worsen sooner, to contact their primary care physician. Potential red flag symptoms discussed with the patient. Reviewed appropriate action plan to take if red flag symptoms occur. Patient agreeable to treatment plan. I spent a total of 15 minutes on the date of the service which included preparing to see the patient, [id number] patient care, completing clinical documentation, obtaining and/or reviewing separately obtained history, performing a medically appropriate examination, counseling and educating the patient/family/caregiver, and ordering medications, tests, or procedures. [facility] 11-19-2022 History of Presen t illness Narrative 11/19/2022 Patient presents with: Sleep Problem In lieu of an in person visit due to coronavirus 19 pandemic concerns, a telephone/video visit was performed with patient. Patient is aware that I am not fully able to assess symptoms and do a full physical exam including vital signs at this time. Patient consents to the visit SUBJECTIVE: This is a 36 year old that is here today for Above Complaints. Switched from Zoloft to Wellbutrin at last appointment. Improved night sweats and night terrors. Still with difficulty falling and staying sleep. Has tried melatonin in the past but made her have night terrors. Feels depression is controlled well. PAST MEDICAL HISTORY Diagnosis Date Depressive disorder, not elsewhere classified 2005 Following job loss Migraine Seasonal allergies ALLERGIES Seasonal Allergies MEDICATIONS Current Outpatient Medications Medication Sig ENSKYCE 0.15-0.03 mg per tablet Take 1 tablet by mouth once daily. loratadine (CLARITIN) 10 mg tablet Take 10 mg by mouth once daily. docosahexaenoic acid/epa (FISH OIL ORAL) Take 1 tablet by mouth once daily. ferrous sulfate (FEOSOL) 325 mg (65 mg iron) tablet Take 325 mg by mouth once daily. sertraline (ZOLOFT) 50 mg tablet Take 1 tablet by mouth once daily. buPROPion XL (WELLBUTRIN XL) 150 mg 24 hr tablet Take 1 tablet by mouth once daily. rizatriptan (MAXALT) 10 mg tablet Take 1 tablet by mouth as needed for migraine headache (see administration instructions). multivitamin tablet Take 1 tablet by mouth once daily. SPRINTEC 0.25-35 mg-mcg per tablet TAKE 1 TABLET BY MOUTH EVERY DAY (Patient not taking: Reported on 11/29/2019) VIT/IRON FUMARATE/FA ( ORAL) Take by mouth. No current facility-administered medications for this visit. Medications and allergies reviewed by this provider. SOCIAL HISTORY Social History Tobacco Use Smoking status: Never Smokeless tobacco: Never Substance Use Topics Alcohol use: No Drug use: No REVIEW OF SYSTEMS All other reviewed and negative other than HPI. OBJECTIVE: LMP 09/15/2022 (Exact Date) . Vital signs reviewed by this provider. APPEARANCE Well appearing, alert, in no acute distress, well-hydrated, well nourished. PSYCH: Posture and motor behavior: normal posture and motor behavior Dress, grooming, personal hygiene: normal dress and grooming Facial expression: smiling and good eye contact Speech: normal speech Mood: cheerful Coherency and relevance of thought: normal thought processes Memory: normal memory HEPATITIS B(1 of 3 - 3-dose series) Never done HEPATITIS C SCREENING due on 10/13/2023 PAP TESTING due on 06/27/2024 HPV TESTING due on 06/27/2024 DTAP,TDAP,TD(4 - Td or Tdap) due on 10/21/2029 INFLUENZA Completed HIV SCREENING Completed COVID-19 VACCINE Completed ASSESSMENT/PLAN: 1. Sleeping difficulty - ICD9: 780.50, ICD10: G47.9 - sleep hygiene discussed - TRAZODONE 50 MG TABLET- common side effects discussed, verbalizes understanding - follow-up if symptoms fail to improve Kathy Ford APRN.ASHIA Prescription instructions reviewed with patient as applicable. Patient advised if symptoms do not improve or if symptoms worsen sooner, to contact their primary care physician. Potential red flag symptoms discussed with the patient. Reviewed appropriate action plan to take if red flag symptoms occur. Patient agreeable to treatment plan. I spent a total of 15 minutes on the date of the service which included preparing to see the patient, [id number] patient care, completing clinical documentation, obtaining and/or reviewing separately obtained history, performing a medically appropriate examination, counseling and educating the patient/family/caregiver, and ordering medications, tests, or procedures. documented in this encounter [facility] 10-13-2022 Note HNO ID: [id number] Author: Brooke Burnett APRN.CNP Service: ? Author Type: Nurse Practitioner Type: Progress Notes Filed: 10/13/2022 10:02 AM Note Text: Chief Complaint Patient presents with: Physical HPI Celi Frederick is a 36 year old female who presents here today for physical exam. Here for physical exam. Due for labs Would like to get updated COVID booster. Also would like to discuss depression. Currently prescribed sertraline. No SI/HI. She has noticed that the sertraline is not working at well now. Now getting more vivid dreams, waking up in a sweat. She discusses a traumatic event with giving to son, believes that contributes to it. She would like to try something different. Doing well with migraines, infrequently. Uses maxalt as needed. Past medical history, appointments, medications, allergies reviewed. Previous Medical History PAST MEDICAL HISTORY Diagnosis Date Depressive disorder, not elsewhere classified 2005 Following job loss Migraine Seasonal allergies Previous Surgical History PAST SURGICAL HISTORY Procedure Laterality Date ADENOIDECTOMY PRIMARY Adenoidectomy DELIVERY ONLY 01/23/16 , low transverse TONSILLECTOMY PRIMARY/SECONDARY Tonsillectomy Family History FAMILY HISTORY Problem Relation Age of Onset Arthritis Father Cancer Father Prostate Diabetes Father Coronary Artery Disease Father other (Other [Other]) Mother Brain hemorhage Headache Mother Aneurysm Breast Cancer Father Cancer Father Skin other (Parkinson's Disease [Other]) Father Patient Allergies ALLERGIES Allergen Reactions Seasonal Allergies Other: See Comments Current Medications Current Outpatient Medications on File Prior to Visit Medication Sig rizatriptan (MAXALT) 10 mg tablet Take 1 tablet by mouth as needed for migraine headache (see administration instructions). sertraline (ZOLOFT) 100 mg tablet take 1 tablet by mouth once daily multivitamin tablet Take 1 tablet by mouth once daily. SPRINTEC 0.25-35 mg-mcg per tablet TAKE 1 TABLET BY MOUTH EVERY DAY (Patient not taking: Reported on 11/29/2019) VIT/IRON FUMARATE/FA ( ORAL) Take by mouth. No current facility-administered medications on file prior to visit. Social History Social History Tobacco Use Smoking status: Never Smokeless tobacco: Never Substance Use Topics Alcohol use: No Drug use: No REVIEW OF SYSTEMS: as above Reviewed relevant PMHx, PSHx, Social Hx, current medications and allergies. Review of Symptoms REVIEW OF SYSTEMS PAIN ASSESSMENT: Negative for pain, history of chronic pain, or current treatment for a chronic pain condition. GENERAL: No weight loss, malaise or fevers HEENT: Negative for frequent or significant headaches, No changes in hearing or vision, no nose bleeds or other nasal problems NECK: Negative for lumps, goiter, pain and significant neck swelling RESPIRATORY: Negative for cough, hemoptysis, wheezing, COPD, dyspnea or shortness of breath CARDIOVASCULAR: Negative for chest pain, leg swelling, hypertension, CHF or palpitations GI: No nausea, vomiting, or diarrhea : No history of dysuria, frequency or incontinence MUSCULOSKELETAL: Negative for joint pain or swelling, back pain or muscle pain PSYCH: See HPI HEMATOLOGY/LYMPHOLOGY: Negative for prolonged bleeding, bruising easily or swollen nodes ENDOCRINE: Negative for cold or heat intolerance, polyuria, polydipsia and goiter NEURO: SEE HPI EXAM: BP 119/77 Pulse 98 Temp 36.3 ?C (97.3 ?F) (Left Tympanic) Resp 16 Ht 166.4 cm (5' 5.5 ) Wt 119.3 kg (263 lb) LMP 09/15/2022 (Exact Date) SpO2 99% BMI 43.10 kg/m? General Appearance: Well appearing, alert, in no acute distress, well-hydrated, well nourished. Smiling Head: Normocephalic, no masses, lesions, tenderness or abnormalities. Eyes: Anicteric sclera. Pupils are equally round and reactive to light. Extraocular movements are intact. . Ears: External ears normal, canals clear. Nose/Sinuses: Nares normal, septum midline, mucosa normal, no drainage or sinus tenderness. Oropharynx: Lips, mucosa, and tongue normal, teeth and gums normal, oropharynx normal. Neck: Supple, no adenopathy; thyroid symmetric, normal size Lungs: Lungs clear to auscultation. No wheezing, rhonchi, rales.. Heart: RRR without murmur, gallop, or rubs. No ectopy. Peripheral Pulses: Normal, Pulses: radial=4/4,dorsalis pedis=4/4, posterior tibial=4/4. Lymph Nodes: No cervical lymphadenopathy and No supraclavicular lymphadenopathy. Health Maintenance List HEPATITIS B(1 of 3 - 3-dose series) Never done HEPATITIS C SCREENING Never done COVID-19 VACCINE(4 - Booster for Pfizer series) due on 11/20/2021 PAP TESTING due on 06/27/2024 HPV TESTING due on 06/27/2024 DTAP,TDAP,TD(2 - Td or Tdap) due on 10/31/2025 INFLUENZA Completed HIV SCREENING Completed ASSESSMENT/PLAN: 1. Wellness exam (more content not included)... [facility] 10-13-2022 History of Presen t illness Narrative Chief Complaint Patient presents with: Physical HPI Celi Frederick is a 36 year old female who presents here today for physical exam. Here for physical exam. Due for labs Would like to get updated COVID booster. Also would like to discuss depression. Currently prescribed sertraline. No SI/HI. She has noticed that the sertraline is not working at well now. Now getting more vivid dreams, waking up in a sweat. She discusses a traumatic event with giving to son, believes that contributes to it. She would like to try something different. Doing well with migraines, infrequently. Uses maxalt as needed. Past medical history, appointments, medications, allergies reviewed. Previous Medical History PAST MEDICAL HISTORY Diagnosis Date Depressive disorder, not elsewhere classified 2005 Following job loss Migraine Seasonal allergies Previous Surgical History PAST SURGICAL HISTORY Procedure Laterality Date ADENOIDECTOMY PRIMARY <AGE 12 1987 Adenoidectomy DELIVERY ONLY 01/23/16 , low transverse TONSILLECTOMY PRIMARY/SECONDARY <AGE 12 2004 Tonsillectomy Family History FAMILY HISTORY Problem Relation Age of Onset Arthritis Father Cancer Father Prostate Diabetes Father Coronary Artery Disease Father other (Other [Other]) Mother Brain hemorhage Headache Mother Aneurysm Breast Cancer Father Cancer Father Skin other (Parkinson's Disease [Other]) Father Patient Allergies ALLERGIES Allergen Reactions Seasonal Allergies Other: See Comments Current Medications Current Outpatient Medications on File Prior to Visit Medication Sig rizatriptan (MAXALT) 10 mg tablet Take 1 tablet by mouth as needed for migraine headache (see administration instructions). sertraline (ZOLOFT) 100 mg tablet take 1 tablet by mouth once daily multivitamin tablet Take 1 tablet by mouth once daily. SPRINTEC 0.25-35 mg-mcg per tablet TAKE 1 TABLET BY MOUTH EVERY DAY (Patient not taking: Reported on 11/29/2019) VIT/IRON FUMARATE/FA ( ORAL) Take by mouth. No current facility-administered medications on file prior to visit. Social History Social History Tobacco Use Smoking status: Never Smokeless tobacco: Never Substance Use Topics Alcohol use: No Drug use: No REVIEW OF SYSTEMS: as above Reviewed relevant PMHx, PSHx, Social Hx, current medications and allergies. Review of Symptoms REVIEW OF SYSTEMS PAIN ASSESSMENT: Negative for pain, history of chronic pain, or current treatment for a chronic pain condition. GENERAL: No weight loss, malaise or fevers HEENT: Negative for frequent or significant headaches, No changes in hearing or vision, no nose bleeds or other nasal problems NECK: Negative for lumps, goiter, pain and significant neck swelling RESPIRATORY: Negative for cough, hemoptysis, wheezing, COPD, dyspnea or shortness of breath CARDIOVASCULAR: Negative for chest pain, leg swelling, hypertension, CHF or palpitations GI: No nausea, vomiting, or diarrhea : No history of dysuria, frequency or incontinence MUSCULOSKELETAL: Negative for joint pain or swelling, back pain or muscle pain PSYCH: See HPI HEMATOLOGY/LYMPHOLOGY: Negative for prolonged bleeding, bruising easily or swollen nodes ENDOCRINE: Negative for cold or heat intolerance, polyuria, polydipsia and goiter NEURO: SEE HPI EXAM: BP 119/77 Pulse 98 Temp 36.3 C (97.3 F) (Left Tympanic) Resp 16 Ht 166.4 cm (5' 5.5 ) Wt 119.3 kg (263 lb) LMP 09/15/2022 (Exact Date) SpO2 99% BMI 43.10 kg/m General Appearance: Well appearing, alert, in no acute distress, well-hydrated, well nourished. Smiling Head: Normocephalic, no masses, lesions, tenderness or abnormalities. Eyes: Anicteric sclera. Pupils are equally round and reactive to light. Extraocular movements are intact. . Ears: External ears normal, canals clear. Nose/Sinuses: Nares normal, septum midline, mucosa normal, no drainage or sinus tenderness. Oropharynx: Lips, mucosa, and tongue normal, teeth and gums normal, oropharynx normal. Neck: Supple, no adenopathy; thyroid symmetric, normal size Lungs: Lungs clear to auscultation. No wheezing, rhonchi, rales.. Heart: RRR without murmur, gallop, or rubs. No ectopy. Peripheral Pulses: Normal, Pulses: radial=4/4,dorsalis pedis=4/4, posterior tibial=4/4. Lymph Nodes: No cervical lymphadenopathy and No supraclavicular lymphadenopathy. Health Maintenance List HEPATITIS B(1 of 3 - 3-dose series) Never done HEPATITIS C SCREENING Never done COVID-19 VACCINE(4 - Booster for Pfizer series) due on 11/20/2021 PAP TESTING due on 06/27/2024 HPV TESTING due on 06/27/2024 DTAP,TDAP,TD(2 - Td or Tdap) due on 10/31/2025 INFLUENZA Completed HIV SCREENING Completed ASSESSMENT/PLAN: 1. Wellness examination - ICD9: V70.0, ICD10: Z00.00 (primary diagnosis) - Counseled on healthy diet and regular exercise - Calcium intake with supplements or by diet of 1000 mg/day for under 50, 5626-5614 mg/day for 50+ - Patient was counseled [id number] by myself (the billing provider) for the following immunizations and vaccine components, including side effects: COVID-19. Patient consents for immunization and understands risks and benefits. A VIS sheet on each immunization was given to the patient. - Follow up for annual exam in one year - COMP METABOLIC PANEL - LIPID PANEL, NONFASTING 2. Immunization due - ICD9: V05.9, ICD10: Z23 - PFI[employer]ER-[employer]ION[employer] COVID-19 BIVALENT BOOSTER VACCINE, AGE 12+ YR 3. Recurrent major depression in partial remission (HCC) - ICD9: 296.35, ICD10: F33.41 - Likely some PTSD from trauma also. Start Wellbutrin XL 150 mg daily. Reduce Sertaline to 50 mg for next month. Follow up with virtual visit. - SERTRALINE 50 MG TABLET - BUPROPION XL 150 MG TAB 4. Pre-diabetes - ICD9: 790.29, ICD10: R73.03 - Recheck - HGB A1C 5. Low vitamin D level - ICD9: 790.6, ICD10: R79.89 - Re-check - VITAMIN D 25 HYDROXY 6. Migraine with aura, not intractable, without status migrainosus - ICD9: 346.00, ICD10: G43.109 - Stable, continue with as needed use of maxalt Brooke Burnett APRN.CNP RTO in 1 months, sooner if needed. This note was partly generated using Storie voice recognition dictation and may contain some misspelled or inaccurate words missed on review. documented in this encounter [facility] 01-21-2022 Miscellaneous Notes Last refill 05/28/20 Qty: 6 with 5 refills Last ov 10/25/20 No appt scheduled Nate Henriquez LPN documented in this encounter [facility] documented as of this encounter (statuses as of 01/21/2022) [facility] History of Past illness Narrative* Problem Noted Date Resolved Date Encounter for supervision of normal first in third trimester 11/14/2015 02/13/2016 Overview: Dominic cook documented as of this encounter (statuses as of 06/21/2022) [facility] History of Past illness Narrative* Problem Noted Date Resolved Date Encounter for supervision of normal first in third trimester 11/14/2015 02/13/2016 Overview: Dominic cook documented as of this encounter (statuses as of 10/13/2022) [address]17-2016 History of Past illness Narrative* Problem Noted Date Resolved Date Encounter for supervision of normal first in third trimester 11/14/2015 02/13/2016 Overview: Dominic cook documented as of this encounter (statuses as of 11/20/2022) [facility] History of Past illness Narrative* Problem Noted Date Resolved Date Encounter for supervision of normal first in third trimester 11/14/2015 02/13/2016 Overview: Dominic cook documented as of this encounter (statuses as of 12/17/2022) [facility] History of Past illness Narrative* Problem Noted Date Resolved Date Encounter for supervision of normal first in third trimester 11/14/2015 02/13/2016 Overview: Dominic cook documented as of this encounter (statuses as of 12/23/2022) [address]17-2016 History of Past illness Narrative* Problem Noted Date Diagnosed Date Resolved Date Encounter for supervision of normal first in third trimester 11/14/2015 02/13/2016 Overview: Dominic cook documented as of this encounter (statuses as of 09/08/2023) [facility] History of Past illness Narrative* Problem Noted Date Diagnosed Date Resolved Date Encounter for supervision of normal first in third trimester 11/14/2015 02/13/2016 Overview: Dominic cook documented as of this encounter (statuses as of 09/08/2023) [facility] History of Past illness Narrative* Problem Noted Date Diagnosed Date Resolved Date Encounter for supervision of normal first in third trimester 11/14/2015 02/13/2016 Overview: Dominic cook documented as of this encounter (statuses as of 09/09/2023) [facility] Diagnosis Wellness examination- Primary Immunization due Need for prophylactic vaccination and inoculation against unspecified single disease Recurrent major depression in partial remission (HCC) Major depressive disorder, recurrent episode, in partial or unspecified remission Pre-diabetes Other abnormal glucose Low vitamin D level Migraine with aura, not intractable, without status migrainosus [facility] Diagnosis Sleeping difficulty- Primary Sleep disturbance, unspecified [facility] Diagnosis Injury of right wrist, initial encounter- Primary [facility] Diagnosis Recurrent major depression in partial remission (HCC) Major depressive disorder, recurrent episode, in partial or unspecified remission [facility] Diagnosis Recurrent major depression in partial remission (HCC) Major depressive disorder, recurrent episode, in partial or unspecified remission [facility] Diagnosis Recurrent major depression in partial remission (HCC) Major depressive disorder, recurrent episode, in partial or unspecified remission documented in this encounter [facility] for referral (narrative)* Diagnostic Procedure Only (Urgent) - Closed Specialty Diagnoses / Procedures Referred By Contac t Referred To Contact XR IMAGING Diagnoses Injury of right wrist, initial encounter Procedures XR WRIST INJURY 4V PA/LAT/OBL/SCAPH RIGHT RADEX WRIST COMPLETE MINIMUM 3 VIEWS John Reyes APRN.OCCUPATIONAL HEALTH NURSE MANAGER [address] [place] [address] Xr Imaging Referral ID Status Reason Start Date Expiration Date V isits Requested Visits Authorized [id number] Closed Auto-Generate d Referral 12/17/2022 01/16/[address] [facility] Summary Purpose Family History No Family History Records Found Advance Directives No Advanced Directives Records Found Additional Source Comments Source Comments (unrecognize d section and content) In the event this informatio n is protected by the Federal Confidentiality of Alcohol and Drug Abuse Patient Records regulations: The Federal rules restrict any use of the information to criminally investigate or prosecute any alcohol or drug abuse patient.[facility] the event this information is protected by the Federal Confidentiality of Alcohol and Drug Abuse Patient Records regulations: The Federal rules restrict any use of the information to criminally investigate or prosecute any alcohol or drug abuse patient.[facility] the event this information is protected by the Federal Confidentiality of Alcohol and Drug Abuse Patient Records regulations: The Federal rules restrict any use of the information to criminally investigate or prosecute any alcohol or drug abuse patient.[facility] the event this information is protected by the Federal Confidentiality of Alcohol and Drug Abuse Patient Records regulations: The Federal rules restrict any use of the information to criminally investigate or prosecute any alcohol or drug abuse patient.[facility] the event this information is protected by the Federal Confidentiality of Alcohol and Drug Abuse Patient Records regulations: The Federal rules restrict any use of the information to criminally investigate or prosecute any alcohol or drug abuse patient.[facility] the event this information is protected by the Federal Confidentiality of Alcohol and Drug Abuse Patient Records regulations: The Federal rules restrict any use of the information to criminally investigate or prosecute any alcohol or drug abuse patient.[facility] the event this information is protected by the Federal Confidentiality of Alcohol and Drug Abuse Patient Records regulations: The Federal rules restrict any use of the information to criminally investigate or prosecute any alcohol or drug abuse patient.[facility] the event this information is protected by the Federal Confidentiality of Alcohol and Drug Abuse Patient Records regulations: The Federal rules restrict any use of the information to criminally investigate or prosecute any alcohol or drug abuse patient.[facility] the event this information is protected by the Federal Confidentiality of Alcohol and Drug Abuse Patient Records regulations: The Federal rules restrict any use of the information to criminally investigate or prosecute any alcohol or drug abuse patient.[facility] Care Teams (unrecognized sec tion and content) Adult Secondary Education Instructor Relationship Specialty Start Date End Date Cee Driscoll MD [address] [place] [address] PCP - General Family Medicine 11/06/11 Adult Secondary Education Instructor Relationship Specialty Start Date End Date Cee Driscoll MD [address] [place] [address] PCP - General Family Medicine 11/06/11 Adult Secondary Education Instructor Relationship Specialty Start Date End Date Cee Driscoll MD [address] [place] [address] PCP - General Family Medicine 11/06/11 Adult Secondary Education Instructor Relationship Specialty Start Date End Date Cee Driscoll MD [address] [place] [address] PCP - General Family Medicine 11/06/11 Adult Secondary Education Instructor Relationship Specialty Start Date End Date Cee Driscoll MD [address] [place], [place] [id number] PCP - General Family Medicine 11/06/11 Adult Secondary Education Instructor Relationship Specialty Start Date End Date Cee Driscoll MD [address] [place], [place] [id number] PCP - General Family Medicine 11/06/11 Adult Secondary Education Instructor Relationship Specialty Start Date End Date Cee Driscoll MD [address] [place] [address] PCP - General Family Medicine 11/06/11 Adult Secondary Education Instructor Relationship Specialty Start Date End Date Cee Driscoll MD [address] [place] [address] PCP - General Family Medicine 11/06/11 Reason for Visit (unrecogniz ed section and content) Reason Comments Sleep Problem Reason Comments Trauma Right wrist pain,aft er throwing baseballs x 1 day Reason Onset Date Comments Refill Request 12/23/2022 Reason Comments Refill Request Reason Onset Date Comments Refill Request 09/08/2023 INFORMATION SOURCE (unrecogn ized section and content) FOR RECORDS PERTAINING TO PATIENTS WHO ARE OR HAVE BEEN ENROLLED IN A CHEMICAL DEPENDENCY/SUBSTANCEABUSE PROGRAM, SOME INFORMATION MAY BE OMITTED. This clinical summary was aggregated from multiple sources. Caution should be exercised in using it in the provision of clinical care. This summary normalizes information from multiple sources, and as a consequence, information in this document may materially change the coding, format and clinical context of patient data. In addition, data may be omitted in some cases. CLINICAL DECISIONS SHOULD BE BASED ON THE PRIMARY CLINICAL RECORDS. [employer] provides no warranty or guarantee of the accuracy or completeness of information in this document.
[2023-11-02 09:07] LABS: HPV APTIMA, High Risk Negative (Negative)
== END 2023-10-27 23:59 | disposition home or self-care (01) ==
LOC: LABSPEC 16:50
PROVIDERS: PCP Family Medicine; Referring Provider Nurse Practitioner Women's Health; Visit Provider Nurse Practitioner Women's Health
DX: Z12.4 Encounter for screening for malignant neoplasm of cervix (principal)
CPT/HCPCS: 87624; 88175; G0145

== ENCOUNTER → 2024-02-02 | Outpatient (CLI) | payer OTHER, SELFPAY ==
--- NOTE | 2024-02-02 10:12 | BI_ITS ---
MAMMOGRAPHY - BILATERAL SCREENING REASON FOR EXAM: Female, 38 years old. Routine annual screening examination. PERTINENT HISTORY: Father with breast cancer. TECHNIQUE: Digital bilateral breast estefania (3D mammographic acquisition) in the CC and MLO projections. 2-D mediolateral oblique (MLO) and craniocaudad (CC) views of both breasts were obtained. CAD: Full Field Digital Mammography with Computer Added Detection was performed. COMPARISON: Comparison is made with prior study dated January 27, 2023 and April 27, 2018. FINDINGS: Breast Composition: There are scattered areas of fibroglandular density. There is a 5.2 mm x 8.5 mm well-defined nodule in the inferior medial aspect of the right breast. Correlation with ultrasound is recommended. No other significant abnormalities are identified. BI/SCRN MAMM (CAD)W/ESTEFANIA BILAT IMPRESSION: 5.2 mm x 8.5 mm well-defined nodule in the inferior medial aspect of the right breast. Correlation with ultrasound is recommended. ASSESSMENT CATEGORY: BIRADS Category 0: Incomplete. Need additional imaging evaluation. A letter regarding these results will be sent to the patient by the facility within 30 days. Approximately 10% of breast cancers are not detected by mammography. A normal mammogram should not delay biopsy of a clinically suspicious abnormality. [id number] Electronically Signed: Terrance Briones MD at 12:25 EDT ,
== END | disposition home or self-care (01) ==
LOC: OPBI 10:12
PROVIDERS: PCP Family Medicine; Referring Provider Nurse Practitioner Women's Health; Visit Provider Nurse Practitioner Women's Health
DX: Z12.31 Encounter for screening mammogram for malignant neoplasm of breast (principal); Z80.3 Family history of malignant neoplasm of breast
CPT/HCPCS: 77063; 77067

== ENCOUNTER → 2024-02-04 | Outpatient (CLI) | payer OTHER, SELFPAY ==
--- NOTE | 2024-02-04 11:04 | US_ITS ---
STUDY: ULTRASOUND BREAST - RIGHT REASON FOR EXAM: Female, 38 years old. Abnormal screening mammogram. TECHNIQUE: Axial and longitudinal images of the RIGHT breast were performed with a high resolution ultrasound transducer. # OF IMAGES: 27 COMPARISON: Comparison is made with prior mammogram dated February 02, 2024 FINDINGS: RIGHT Breast: The inferior medial aspect of the right breast was examined with ultrasound. The mammographic abnormality corresponds to a 1 cm x 0.3 cm x 0.9 cm lymph node with fatty hilum. Routine mammographic follow-up recommended. US/Breast Complete Unilateral IMPRESSION: The mammographic abnormality corresponds to 1 cm x 2 0.3 cm x 0.9 cm lymph node. Routine mammographic follow-up is recommended. ASSESSMENT CATEGORY: BIRADS Category 2: Benign. A letter regarding these results will be sent to the patient by the facility within 30 days. Electronically Signed: Terrance Briones MD at 13:22 EDT ,
== END | disposition home or self-care (01) ==
LOC: OPUS 11:01
PROVIDERS: PCP Family Medicine; Referring Provider Nurse Practitioner Women's Health; Visit Provider Nurse Practitioner Women's Health
DX: N63.10 Unspecified lump in the right breast, unspecified quadrant (principal)
CPT/HCPCS: 76641

== ENCOUNTER → 2025-02-03 | Outpatient (CLI) | payer BC, SELFPAY ==
--- NOTE | 2025-02-03 08:15 | BI_ITS ---
EXAM: SCRN MAMM (CAD)W/ESTEFANIA BILAT 02/03/2025 CLINICAL HISTORY: F, Age 39 y/o , SCREENING FOR BREAST CANCER TECHNIQUE: Bilateral screening digital breast tomosynthesis with 2D and 3D images. Computer aided detection. COMPARISON: Prior exam(s) dated 02/02/2024, 01/27/2023. FINDINGS: TISSUE DENSITY: The breast tissue is almost entirely fatty. Bilateral Breast Mammographic Findings: No significant masses, calcifications or other abnormalities are identified. BI/SCRN MAMM (CAD)W/ESTEFANIA BILAT IMPRESSION: Right Breast: BIRADS 1 NEGATIVE. Left Breast: BIRADS 1 NEGATIVE. OVERALL FINAL ASSESSMENT: BIRADS 1 NEGATIVE. RECOMMENDATION: Routine annual follow-up in 1 Year A letter with findings and recommendations will be mailed to the patient. Reading Location: [facility]
== END | disposition home or self-care (01) ==
LOC: OPBI 08:05
PROVIDERS: PCP Nurse Practitioner Family; Referring Provider Advanced Practice Midwife; Visit Provider Advanced Practice Midwife
DX: Z12.31 Encounter for screening mammogram for malignant neoplasm of breast (principal)
CPT/HCPCS: 77063; 77067

== ENCOUNTER 2025-07-11 11:56 | Emergency (ER) | payer BC, SELFPAY ==
[2025-07-11 11:57] VITALS: BP 126/77; PULSE 104; RESP 18; TEMP 35.8; O2SAT 99; BMI 42.5
[2025-07-11 12:34] LABS: Mucous, Urine 0 SEEN /hpf (<or=2+)
--- NOTE | 2025-07-11 12:36 | EX.ED.DYSGE1 ---
HPI History of Present Illness Chief Complaint: Complaint Narrative Narrative: Patient is a 39-year-old female with past medical history of asthma, depression, migraines who presented to the emergency department with a chief complaint of lower abdominal pain. According to the patient she states that for the past 2 weeks she has had episodes in the morning when she first wakes up and goes to go to the restroom she notes that she will have some difficulty making it to the bathroom before she urinates. She states that she does not have any other episodes of this throughout the day and notes that she has been having normal bowel movements. Patient denies any back injuries or trauma denies any history of IV drug use. She states that today she had some worsening left-sided pain in her abdomen therefore she went to urgent care where they did a urinalysis and noted that there was some blood therefore they advised her to come to the emergency department to be further evaluated. [facility] Medical History Depression Asthma Migraines Home Medications ?Medication ?Instructions ?Recorded ?Last Taken ?Type dyqsoxyj-cmn-fwqc-FA-Ca carb-vit K 1 tab PO DAILY 08/23/21 Unknown History 18 mg iron-400 mcg-500 mg tablet bupropion HCl 150 mg 24 hr tablet, 150 mg PO QAM 10/27/23 Unknown History extended release ferrous sulfate 325 mg (65 mg 325 mg PO DAILY 10/27/23 Unknown History iron) tablet omega 5-hbi-hgm-fish oil 60 mg-90 1 cap PO QDAY 12/08/24 Unknown History mg-500 mg capsule (Fish Oil) topiramate 50 mg tablet mg PO 12/08/24 Unknown History trazodone 150 mg tablet mg PO 12/08/24 Unknown History cephalexin 500 mg capsule 500 mg PO BID #14 caps 07/11/25 Unknown Rx ketorolac 10 mg tablet 10 mg PO Q8H PRN pain #14 tabs 07/11/25 Unknown Rx ondansetron 4 mg disintegrating 4 mg PO Q6H PRN nausea and 07/11/25 Unknown Rx tablet vomiting #20 tabs oxycodone-acetaminophen 5 mg-325 1 tab PO Q6H PRN pain 2 days #8 07/11/25 Unknown Rx mg tablet (Endocet) tabs tamsulosin 0.4 mg capsule 0.4 mg PO DAILY #14 caps 07/11/25 Unknown Rx Allergy/AdvReac Type Severity Reaction Status Date / Time No Known Allergies Allergy Verified 07/11/25 11:56 Family History Father Cancer prostate and skin Diabetes Parkinson disease Heart disease Myocardial infarction x2 Hypertension Breast cancer Mother Brain aneurysm Surgical History Status post myringotomy with insertion of tube History of tonsillectomy and adenoidectomy Hx of section Social History Smoking Status: Never smoker alcohol intake: never substance use type: does not use caffeine: No what type of physical activity do you participate in: walking frequency: 3-4 times per week seatbelt use: always do you feel safe at home: Yes additional social history: - [employer] 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 [employer] ROS ROS ED ROS Narrative Constitutional: Denies any fevers or chills Eyes: Denies double vision blurry vision Cardiovascular: Denies chest pain Respiratory: Shortness of breath Abdomen: Denies abdominal pain nausea vomit diarrhea : Denies urinary symptoms as noted above Neurological: Denies any numbness, weakness, tingling Musculoskeletal: Complains of left flank pain Skin: Denies any rashes or lesions EXAM Physical Exam Narrative Exam Narrative: General: Patient was lying in bed rest comfortably did not appear to be in acute distress Head: Atraumatic, normocephalic Eyes: PERRL bilaterally, EOMI bilateral, no conjunctival injection noted Neck: Soft, supple, trachea midline Cardiovascular: Patient tachycardic with a regular rhythm Respiratory: Clear to auscultation bilaterally Abdomen: Soft, nondistended, mild tenderness to palpation in the left lower quadrant no rebound or guarding on exam Musculoskeletal: Patient has mild CVA tenderness noted on the left side no tenderness palpation midline of the thoracolumbar spine Extremities: +5/5 strength noted in the bilateral upper and lower extremities Neurological: Patient following commands that she was at [facility] the year is 2024. NIH of 0 GCS 15. Sensation grossly intact no saddle anesthesia noted Skin: Warm, dry, intact no rashes or lesions noted Const Vital Signs: 07/11/25 11:57 07/11/25 13:43 Temperature 96.4 F L 98.3 F Temperature Source Temporal Oral Pulse Rate 104 H 69 Respiratory Rate 18 16 Blood Pressure 126/77 H 114/74 Blood Pressure Mean 93 87 Pulse Ox 99 99 Oxygen Delivery Method Room Air Room Air MDM MDM MDM Narrative Medical decision making narrative: Patient is a 39-year-old female who presents to the emergency department with a chief complaint of left-sided abdominal pain, blood in her urine and. On the differential diagnose includes but limited to UTI, pyelonephritis, diverticulitis, cauda equina syndrome although have low suspicion for this as she had these episodes over the last 2 weeks first thing in the morning when she tries to wake up and has not had these throughout the day she is having normal bowel movements she has no direct trauma to her back there is no saddle anesthesia noted. Once workup is obtained and reviewed she will be reevaluated. Patient CBC was reviewed which showed a leukocytosis of 12,000, hemoglobin stable 12.4, platelet count was noted be 316. Patient sodium is 130, potassium 3.7, creatinine was elevated 1.44. Patient's AST and ALT are 20 and 17 respectively lipase was noted be 19. Patient's urinalysis reviewed and showed 250 blood at 100 leukocyte esterase 5-10 white cells with 2+ bacteria however this did not appear to be a contaminated sample with 25-50 squamous epithelial cells. Patient CT abdomen pelvis with IV contrast reviewed which showed a 5.7 mm calculus in the proximal portion of the left ureter causing mild left hydronephrosis. She has fluid and fat containing structure with the fat and calcification within the lower abdomen and upper pelvis is described as a dermoid cyst Discussed case with on-call urologist Dr. Brady who states that she can see the patient in the outpatient setting. I discussed this plan with the patient and she is agreeable. Patient be given prescription for Keflex, Toradol, Percocet, Zofran, Flomax. She was advised to return with worsening symptoms or other concerns all question concerns answered she was discharged home in stable condition Lab Data Labs: Laboratory Results - last 24 hr 07/11/25 07/11/25 12:25 12:44 WBC 12.3 H RBC 4.12 L Hgb 12.4 Hct 36.8 L MCV 89.3 MCH 30.1 MCHC 33.7 RDW Std Deviation 39.3 RDW Coeff of Trista 12.0 Plt Count 316 MPV 10.4 Immature Gran % (Auto) 0.300 Neut % (Auto) 74.4 H Lymph % (Auto) 14.8 L Stearns % (Auto) 9.2 Eos % (Auto) 1.0 Baso % (Auto) 0.3 Absolute Neuts (auto) 9.1 H Absolute Lymphs (auto) 1.82 Nucleated RBC % 0 Sodium 138 Potassium 3.7 Chloride 106 Carbon Dioxide 21.7 Anion Gap 10 BUN 13 Creatinine 1.44 H Estim Creat Clear Calc 65.46 Est GFR (MDRD) Non-Af 47 L BUN/Creatinine Ratio 8.9 L Glucose 91 Calcium 9.1 Total Bilirubin 0.43 AST 20 ALT 17 Alkaline Phosphatase 77 Total Protein 6.9 Albumin 4.1 Globulin 2.8 Albumin/Globulin Ratio 1.4 Lipase 19 Urine Color Yellow Urine Clarity Sl. Cloudy Urine pH 6.0 Ur Specific [place] 1.020 Urine Protein 30 H Urine Glucose (UA) Normal Urine Ketones Negative Urine Occult Blood 250 H Urine Nitrite Negative Urine Bilirubin Negative Urine Urobilinogen Normal Ur Leukocyte Esterase 100 H Urine RBC 10-25 SEEN Urine WBC 5-10 SEEN Ur Squamous Epith Cells 25-50 SEEN Urine Bacteria 2+ Urine Mucus 0 SEEN Radiography Diagnostic Testing: Clinical Impression(s) from Imaging Studies Abdomen/Pelvis CT 07/11/25 13:41 IMPRESSION: 5.7 mm calculus in the proximal portion of the left ureter causing mild left hydronephrosis. Fluid and fat containing structure with the fat and calcification within it in the lower abdomen and upper pelvis as described suggestive of a dermoid cyst. Reading Location: [facility]- Discharge Plan Triage Chief Complaint: Complaint ED Provider: Lowell Mckeon Dx/Rx/DC Orders Clinical Impression: Urolithiasis, Hydronephrosis, left, Left flank pain Prescriptions: New tamsulosin 0.4 mg capsule 0.4 mg PO DAILY Qty: 14 0RF ketorolac 10 mg tablet 10 mg PO Q8H PRN (Reason: pain) Qty: 14 0RF Rx Instructions: maximum total duration of 5 days from all oral, intranasal, or parenteral formulations oxycodone-acetaminophen [Endocet] 5-325 mg tablet 1 tab PO Q6H PRN (Reason: pain) 2 Days Qty: 8 0RF ondansetron 4 mg tablet,disintegrating 4 mg PO Q6H PRN (Reason: nausea and vomiting) Qty: 20 0RF cephalexin 500 mg capsule 500 mg PO BID Qty: 14 0RF No Action ferrous sulfate 325 mg (65 mg iron) tablet 325 mg PO DAILY bupropion HCl 150 mg tablet extended release 24 hr 150 mg PO QAM trazodone 150 mg tablet PO topiramate 50 mg tablet PO omega 2-ukf-cwa-fish oil [Fish Oil] 60-90-500 mg capsule 1 cap PO QDAY Women's Multivitamin 18 mg iron-400 mcg-500 mg Tablet 1 tab PO DAILY Primary Care Provider: Bebeto Forbes NP Referrals: Elida Brady MD [Med Staff - Active Staff, Urology] Bebeto Forbes NP, [employer] INSPECTOR-[employer] [Primary Care Provider, Medical] Activity Restrictions/Additional Instructions: Follow-up with the urologist that you are referred to. Call their office tomorrow for an appointment. Return with worsening symptoms or other concerns. Take prescriptions as prescribed do not operate anything under the influence of narcotic as it will make you sleepy drowsy. Take Zofran with this as this will also upset your stomach. Print Language: Icelandic Disposition Disposition: Home, Self Care
[2025-07-11 12:43] LABS: Color, Urine Yellow (Yellow); Glucose, Dipstick Normal (Normal); Ketone-Dipstick Negative (Negative); Leukocyte Esterase-Dipstick 100 /ul (Negative); Nitrite-Dipstick Negative (Negative); Occult Blood-Urine 250 /ul (Negative); Protein-Dipstick 30 mg/dl (Negative); Specific Gravity, Urine 1.020 (1.002-1.030); Urine Bilirubin Dipstick Negative (Negative)
[2025-07-11] MEDS: 0.9% Normal Saline (1000mL) 1,000 ML 999 ML IV (12:47)
[2025-07-11 12:50] LABS: Hematocrit 36.8 % (37-47); Hemoglobin 12.4 g/dL (12.0-15.0); Immature Granulocytes Count 0.040 X10^3/uL (0.0-0.0); Mean Corp Hgb Conc 33.7 g/dL (32-36); Mean Corpuscular Volume 89.3 fL (81-99); Mean Platelet Vol. 10.4 fl (6.2-12.0); NRBC Flagged by Analyzer 0 % (0-5); Platelet Count 316 K/mm3 (150-450); RBC Distribution Width CV 12.0 % (11.6-14.6); RBC Distribution Width SD 39.3 fl (35.1-43.9); Red Blood Count 4.12 M/mm3 (4.2-5.4); White Blood Count 12.3 K/mm3 (4.4-11.0)
[2025-07-11 12:59] LABS: Red Blood Cells-Urine 10-25 SEEN /hpf (0-5)
[2025-07-11 13:00] LABS: Squamous Epithelial Cells - UA 25-50 SEEN /hpf (5-10)
[2025-07-11 13:36] LABS: AST(SGOT) 20 U/L (<=31); Alanine Aminotransfer ALT/SGPT 17 U/L (<=34); Albumin, Serum 4.1 g/dL (3.5-5.0); Alkaline Phosphatase 77 U/L (35-104); Anion Gap 10 (5-15); BUN 13 mg/dL (4-19); BUN/Creat Ratio 8.9 RATIO (10-20); Calcium,Total 9.1 mg/dL (7.6-11.0); Carbon Dioxide 21.7 mmol/L (21.0-32.0); Chloride 106 mmol/L (98-108); Estimated Creatinine Clearance 65.46 ml/min (50-250); Globulin 2.8 g/dL (2.2-4.2); Glucose 91 mg/dL (70-99); Lipase 19 U/L (13-75); Potassium 3.7 mmol/L (3.3-5.1)
--- NOTE | 2025-07-11 13:41 | CT_ITS ---
PROCEDURE: ABDOMEN/PELVIS W IV CONT ONLY 07/11/2025 REASON FOR EXAM: ABD PAIN Low back pain. Urinary continence and the materia. TECHNIQUE: Procedure Code: [id number] Modality: CT Procedure: ABDOMEN/PELVIS W IV CONT ONLY Coronal and Sagittal reconstruction series were provided. CONTRAST: Isovue-300 VOLUME: 100 mL One or more dose reduction techniques were used (e.g., Automated exposure control, adjustment of the mA and/or kV according to patient size, use of iterative reconstruction technique. RADIATION DOSE SUMMARY: CTDlvol: 20.35 mGy DLP: 1342.6 mGycm COMPARISON: None FINDINGS: Lung bases: The lung bases are clear. Minimal bilateral pleural thickening. Liver: Normal size. No mass. Gallbladder: Minimal degree of gallbladder wall thickening. Questionable tiny amount of Nancy cholecystic fluid. Spleen: Normal size. Pancreas: Normal size without evidence of mass surrounding inflammation or ductal dilation. Adrenals: Unremarkable Kidneys: Mild degree of left hydronephrosis and proximal left hydroureter due to a 5.7 mm calculus in the proximal portion of the left ureter. Bladder: Unremarkable Reproductive Organs: There is evidence of a 7.7 cm by 11.5 cm by 9.1 cm fluid containing structure in the lower abdomen and upper pelvis. A fluid fluid level is seen. I suspect a fat component along its anterior aspect. There is evidence of focal calcification anteriorly. A dermoid cyst should be ruled out. Bowel: Unremarkable Appendix: Unremarkable Lymph nodes: No suspicious lymph node enlargement. Vasculature: The abdominal aorta and IVC are normal. Peritoneum / Retroperitoneum: Bones: Unremarkable CT/Abdomen/Pelvis W IV Cont ONLY IMPRESSION: 5.7 mm calculus in the proximal portion of the left ureter causing mild left hy dronephrosis. Fluid and fat containing structure with the fat and calcification within it in the lower abdomen and upper pelvis as described suggestive of a dermoid cyst. Reading Location: [place] [id number]
[2025-07-11 13:43] VITALS: BP 114/74; PULSE 69; RESP 16; TEMP 36.8; O2SAT 99
[2025-07-11] MEDS: Ceftriaxone 2 GM in 0.9% Normal Saline (50mL MB+) 50 ML IV (14:57)
[2025-07-11 15:34] VITALS: BP 119/89; PULSE 79; RESP 18; TEMP 37; O2SAT 100
--- NOTE | 2025-07-11 15:34 | ED.RN ---
pt is pale. pain controlled at this time, but encouraged to come back if worse at home.
== END 2025-07-11 15:35 | disposition home or self-care (01) ==
PROVIDERS: Emergency Provider Emergency Medicine; PCP Nurse Practitioner Family; Visit Provider Emergency Medicine
DX: N13.2 Hydronephrosis with renal and ureteral calculous obstruction (principal); R10.A2 Flank pain, left side; R29.700 NIHSS score 0; F32.A Depression, unspecified; Z79.899 Other long term (current) drug therapy
CPT/HCPCS: 74177; 80053; 81001; 83605; 83690; 85025; 87040; 87077; 87086; 87088; 96361; 96365; 96375; 99282; Q9967; A4216; J0696; J2405

== ENCOUNTER 2025-07-20 10:17 | Day surgery (SDC) | payer BC, SELFPAY ==
[2025-07-20] VITALS (9 sets, daily range): BP systolic 104–120; BP diastolic 64–85; PULSE 64–78; RESP 16–18; TEMP 36.1–36.2; O2SAT 96–100; BMI 42.6
--- NOTE | 2025-07-20 10:39 | PCM.HP.BLA ---
History and Physical Date of Admission: 07/20/25 Date of Service: 07/12/25 MR#: [id number] Acct: [id number] Name: ELVER TELLO Rep #: [id number] : 1985 Provider: Dr. Elida Brady MD Age/Sex: 39/F Location: [facility] [place] Status: Signed Intake Vital Signs 07/11/2511:57 07/12/2510:44 Height 5 ft 5 in 5 ft 5 in Weight: 256 lb BMI 42.5 BP 138/71 H Pulse 105 H Intake Visit Reasons: ER F/U 5.7 STONE Chief Complaint: new patient- ER follow up for stone Spot Worker Required: No Accompanied by: self Is patient in pain?: No Allergies No Known Allergies Allergy (Verified 07/12/25 10:42) Medications Medication Instructions Recorded Confirmed Type rbeexmfh-vqg-lccb-FA-Ca carb-vit K 1 tab PO DAILY 08/23/21 07/12/25 History 18 mg iron-400 mcg-500 mg tablet bupropion HCl 150 mg 24 hr tablet, 150 mg PO QAM 10/27/23 07/12/25 History extended release ferrous sulfate 325 mg (65 mg 325 mg PO DAILY 10/27/23 07/12/25 History iron) tablet omega 3-wfc-cpj-fish oil 60 mg-90 1 cap PO QDAY 12/08/24 07/12/25 History mg-500 mg capsule (Fish Oil) topiramate 50 mg tablet mg PO 12/08/24 07/12/25 History trazodone 150 mg tablet mg PO 12/08/24 07/12/25 History cephalexin 500 mg capsule 500 mg PO BID #14 caps 07/11/25 07/12/25 Rx ketorolac 10 mg tablet 10 mg PO Q8H PRN pain #14 tabs 07/11/25 07/12/25 Rx ondansetron 4 mg disintegrating 4 mg PO Q6H PRN nausea and 07/11/25 07/12/25 Rx tablet vomiting #20 tabs oxycodone-acetaminophen 5 mg-325 1 tab PO Q6H PRN pain 2 days #8 07/11/25 07/12/25 Rx mg tablet (Endocet) tabs tamsulosin 0.4 mg capsule 0.4 mg PO DAILY #14 caps 07/11/25 07/12/25 Rx ibuprofen 200 mg capsule 200 mg PO Q6H PRN 07/12/25 07/12/25 History ondansetron 4 mg disintegrating 4 mg PO Q8H PRN nausea and 07/12/25 07/12/25 Rx tablet vomiting #20 tabs oxycodone-acetaminophen 5 mg-325 1 tab PO TID PRN pain 10 days #20 07/12/25 07/12/25 Rx mg tablet (Percocet) tabs Nurse's Note: patient is taking pain meds because the pain is intense without them. does okay with the meds in her system bladder scan PVR 27cc PFSH Medical History Depression Asthma Migraines Surgical History Status post myringotomy with insertion of tube History of tonsillectomy and adenoidectomy Hx of section Family History Father Cancer prostate and skin Diabetes Parkinson disease Heart disease Myocardial infarction x2 Hypertension Breast cancer Mother Brain aneurysm Social History Smoking Status: Never smoker alcohol intake: never substance use type: does not use caffeine: No what type of physical activity do you participate in: walking frequency: 3-4 times per week seatbelt use: always do you feel safe at home: Yes 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 She presented to the ER yesterday with pain and was found to have a proximal left ureteral stone and evidence of urinary tract infection. Today she is doing ok when she is taking her pain medications. It was bad after leaving the ER yesterday. She has 6 tablets for pain left. She has had nausea, the Zofran has really helped. No urinary tract infections, no history of hematuria. She has had urge incontinence for the last 2 weeks. She has also had increased urgency during this time as well. No sensation of prolapse. No bowel issues. We did discuss dermoid cyst in her abdomen, will refer to surgery. She has no history of smoking. There is no history of blood clots or easy bleeding. There is a family history of breast cancer in father. ROS Const Constitutional: Positive for fatigue and change in appetite; No chills, fever(s), headache(s), night sweats, weakness, weight change or abnormal sleep pattern Eyes Eyes: No change in vision ENT ENT: No headache(s) or dry mouth Resp Respiratory: No cough, chest congestion, shortness of breath or wheezing Cardio Cardiology: Positive for other (No chest pain.); No shortness of breath, irregular heart rhythm or lightheadedness Gastro GI: Positive for abdominal pain and nausea/dyspepsia; No change in bowel habits, constipation, diarrhea or vomiting Musc Musculoskeletal: No abnormal gait Skin Skin: No yellowing of the eye, lesions, itchy eyes, rash or skin ulcer Neuro Neurology: No abnormal gait, confusion, dizziness, weakness, headache(s) or memory loss Psych Psychiatric: No abnormal sleep pattern, Positive for change in appetite, No confusion and No memory loss Endo Endocrine: Positive for fatigue; No increased thirst/drinking or weight change Aller/Imm Allergy/Immunologic: No itchy eyes or wheezing Jorje/Lymp Hematologic/Lymphatic: No easy bleeding, easy bruising or enlarged lymph nodes Exam Const General: cooperative, healthy appearing, comfortable and no acute distress [facility] Head: normocephalic and atraumatic Ears: hearing grossly normal bilaterally and external ears normal Nose: external nose normal Eyes General: appearance normal, both eyes and all related structures Neck Neck: normal visual inspection and trachea midline Chest Chest palpation & inspection: normal inspection of the chest Resp Effort & Inspection: normal respiratory effort, able to speak in complete sentences and symmetric chest movement Cardio Rate: regular rate GI Inspection: normal to inspection Palpation: soft and nontender General: CVA tenderness on the left Skin General: no rashes or lesions noted Neuro General: patient alert, patient awake, patient oriented x3 and CN's II-XI intact bilaterally Extrem General: normal to inspection Psych Appearance: grossly normal and well kempt Mental Status: mental status grossly normal Results POC Urinalysis w/Micro Office Urine Color Last Edit by Kimberlyn Harper on 07/12/25 10:50 Office Urine Clarity Last Edit by Kimberlyn Harper on 07/12/25 10:50 Office Urine Glucose Negative Last Edit by Kimberlyn Harper on 07/12/25 10:50 Office Urine Ketones Trace (5) Last Edit by Kimberlyn Harper on 07/12/25 10:50 Office Urine Bilirubin Moderate (2+) Last Edit by Kimberlyn Harper on 07/12/25 10:50 Office Urine Urobilinogen 1 mg/dL Last Edit by Kimberlyn Harper on 07/12/25 10:50 Off Ur Spec [place] 1.020 Last Edit by Kimberlyn Harper on 07/12/25 10:50 Office Urine pH 5.5 Last Edit by Kimberlyn Harper on 07/12/25 10:50 Office Urine Protein 1+ Last Edit by Kimberlyn Harper on 07/12/25 10:50 Office Urine Blood Large Last Edit by Kimberlyn Harper on 07/12/25 10:50 Office Urine Blood Hemolyzed Negative Last Edit by Kimberlyn Harper on 07/12/25 10:50 Office Urine Nitrate Negative Last Edit by Kimberlyn Harper on 07/12/25 10:50 Off Ur Leukocytes Positive Last Edit by Kimberlyn Harper on 07/12/25 10:50 Off Ur WBC Microscopic Last Edit by Kimberlyn Harper on 07/12/25 10:50 Off Ur RBC Microscopic Last Edit by Kimberlyn Harper on 07/12/25 10:50 Off Ur Bacteria Microscopic Last Edit by Kimberlyn Harper on 07/12/25 10:[address] reviewed, 7mm left proximal ureteral calculus with mild hydronephrosis, 2 small left other stones. she does have a dermoid cyst cephalad to bladder. Coding Level of Care Code Off vis,new,level 4 Diagnoses Ureteral calculus N20.1 Left flank pain R10.A2 Hydronephrosis, left N13.30 Abdominal cyst Kidney stones N20.0 Assessment and Plan Assessment and Plan (1) Ureteral calculus: Status: Acute (2) Left flank pain: Status: Acute (3) Hydronephrosis, left: Status: Acute (4) Abdominal cyst: Status: Acute (5) Kidney stones: Status: Acute Orders: Orders POC UA Automated w/Microscopy Today R10.A2 - Flank pain, left side Medications: New oxycodone-acetaminophen 5-325 mg (Percocet) 1 TAB PO TID PRN 20 tabs 0RF pain 10 days N20.1 - Calculus of ureter ondansetron 4 mg PO Q8H PRN 20 tabs 0RF nausea and vomiting Plan schedule for cystoscopy left ureteroscopy, laser lithotripsy, stone basket extraction, left ureteral stent insertion The procedure, recovery and expectations were explained. The risks, benefits and alternatives were discussed, including but not limited to, the risks of anesthesia, bleeding, infection, injury, pain and the need for further intervention. We have discussed the risk of exposure to and/or potential harm posed by the COVID-19 virus with having a surgery/procedure at this time. A joint decision was made at this time to proceed with the scheduled surgery/procedure as indicated on the consent form. pain and nausea control she had a bad experience with anesthesia with child . urine culture refer to general surgery for abdominal cyst 07/12/25 1117 <Electronically signed by Elida Brady MD> Date Elida Brady MD
--- NOTE | 2025-07-20 10:40 | EX.PCM.DISCH ---
Discharge Instructions Diet Discharge Diet: No restrictions Activity Discharge Activity: Return to Normal Activity Dressing / Incision Call your doctor if you observe: Fever of 101 or Higher, Inability to urinate and Inability to have a bowel movement Follow Up Care Please Follow Up With: Elida Brady MD Test Results: Test results from this visit will be discussed in further detail at your follow-up appointment, if applicable. Discharge Plan Admission Attending Provider: Elida Brady Primary Care Provider: Bebeto Forbes NP Instructions Print Language: Nepali Discharge Orders/Prescriptions Prescriptions: New oxycodone-acetaminophen 5-325 mg tablet 1 tab PO Q8H PRN (Reason: pain) 3 Days Qty: 10 0RF ondansetron 4 mg tablet,disintegrating 4 mg PO Q8H PRN (Reason: nausea and vomiting) Qty: 10 0RF phenazopyridine 100 mg tablet 100 mg PO TID PRN (Reason: pain) 30 Days Qty: 30 3RF Continued ferrous sulfate 325 mg (65 mg iron) tablet 325 mg PO DAILY bupropion HCl 150 mg tablet extended release 24 hr 150 mg PO QAM trazodone 150 mg tablet 150 mg PO QHS topiramate 50 mg tablet 50 mg PO BID omega 5-mwk-pgg-fish oil [Fish Oil] 60-90-500 mg capsule 1 cap PO QDAY ibuprofen 200 mg capsule 200 mg PO Q6H PRN (Reason: pain) oxycodone-acetaminophen [Percocet] 5-325 mg tablet 1 tab PO TID PRN (Reason: pain) 10 Days Qty: 20 0RF og-hi-zxqb-FA-Ca carb-vit K 18 mg iron-400 mcg-500 mg Tablet 1 tab PO DAILY tamsulosin 0.4 mg capsule 0.4 mg PO DAILY Qty: 14 0RF ketorolac 10 mg tablet 10 mg PO Q8H PRN (Reason: pain) Qty: 14 0RF Rx Instructions: maximum total duration of 5 days from all oral, intranasal, or parenteral formulations ondansetron 4 mg tablet,disintegrating 4 mg PO Q6H PRN (Reason: nausea and vomiting) Qty: 20 0RF cephalexin 500 mg capsule 500 mg PO BID Qty: 14 0RF folic acid 0.8 mg capsule 800 mcg PO DAILY loratadine [Allerclear] 10 mg tablet 10 mg PO DAILY doxycycline hyclate 100 mg tablet 100 mg PO BID Qty: 14 0RF Referrals / Follow Up: Bebeto Forbes RISK CONTROL OFFICER, RISK CONTROL OFFICER-C [Primary Care Provider, Medical] Disposition Disposition (needs filled in before D/C Order can be placed): Home, Self Care
[2025-07-20 10:48] LABS: Internal QC Validated? YES +Cl - CLEAR BKGD
[2025-07-20 10:49] LABS: Pregnancy, Urine Negative Negative; Record Kit Lot#,Urine Preg 980607
[2025-07-20] MEDS: Lactated Ringers 1,000 ML 15 ML IV (11:00)
--- NOTE | 2025-07-20 11:26 | PCM.PRE.AN2 ---
ASA Classification* ASA Classification ASA Classification: 2 Assessment & Plan Anesthesia* Anesthesia Assessment Anesthesia Assessment: Discussed sedation and/or anesthesia options, risks, benefits, and alternatives with patient/parents/legal guardian/POA. Questions invited. The patient/parents/legal guardian/POA seems to understand and agrees to proceed with anesthesia plan. Reviewed the physical assessment, medical history, allergy history and patient home medications list prior to surgery/procedure/anesthetic and documented any changes. Performed airway and anesthesia risk assessments. Anesthesia Type Anesthesia Type: General History Source History Obtained from:: Patient and Chart Anesthesia Focused Assessment* Temperature: 97.1 F Pulse Rate: 78 Blood Pressure: 104/85 Respiratory Rate: 16 Pulse Ox: 99 Oxygen Delivery Method: Room Air Airway Assessment Mouth opens: >3 cm Mallampati Score: II Teeth Condition: Intact Neck Range of motion (ROM): Full ROM Labs Anesthesia Preop lab: CBC WBC, (4.4-11.0) 12.3 K/mm3 H 07/11/25, 12:44 RBC, (4.2-5.4) 4.12 M/mm3 L 07/11/25, 12:44 Hgb, (12.0-15.0) 12.4 g/dL 07/11/25, 12:44 Hct, (37-47) 36.8 % L 07/11/25, 12:44 Plt Count, (150-450) 316 K/mm3 07/11/25, 12:44 CHEMISTRY Potassium, (3.3-5.1) 3.7 mmol/L 07/11/25, 12:44 Sodium, (133-145) 138 mmol/L 07/11/25, 12:44 BUN, (4-19) 13 mg/dL 07/11/25, 12:44 Creatinine, (0.70-1.20) 1.44 mg/dL H 07/11/25, 12:44 Glucose, (70-99) 91 mg/dL 07/11/25, 12:44 TSH, (0.358-3.74) 1.89 uIU/mL 08/20/22, 10:07 COAG Urine Test Negative Negative Today, 10:40 Pre-Assessment Diagnosis/Proposed Procedure Planned Operative Procedure(s): CYSTO, LEFT URETEROSCOPY, LASER LITHOTRIPSY, STONE BASKET STENT Anesthesia History 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 When Was Last Pacemaker Check QUESTION #4 FULL TEXT: You/Your Family Experience fever (hyperthermia) with Anesthesia Last Oral Intake Last Oral intake: Last Oral Intake NPO since 18:30 07/20/25 10:48 Meds taken in AM with sips of Yes 07/20/25 10:48 water? Meds patient instructed to see med list 07/20/25 10:48 take am of surgery PONV PONV - contracts law professor: PONV - contracts law professor Female Yes 07/18/25 15:29 HX of Motion Sickness No 07/18/25 15:29 HX of N/V After Surgery No 07/18/25 15:29 Non-Smoker Yes 07/18/25 15:29 Duration of Surgery greater Yes 07/18/25 15:29 than 60 minutes Number of Risk Factors 3 07/18/25 15:29 PONV Score Moderate Risk 07/18/25 15:29 Height & Weight Height & Weight: Anesthesia: Height & Weight Height 5 ft 5 in 07/20/25 10:48 Weight: 116.2 kg 07/20/25 10:48 Body Mass Index (BMI) 42.6 07/20/25 10:48 Respiratory Assessment Respiratory Assessment - contracts law professor: Respiratory Tract Infection Hx - contracts law professor Hx Respiratory Tract Infection No 07/18/25 15:29 STOP Sleep Apnea STOP Sleep Apnea - contracts law professor: STOP Sleep Apnea - contracts law professor Hx Hypertension No 07/18/25 15:29 Hx Sleep Apnea No 07/18/25 15:29 CPAP BIPAP Do you snore loudly (louder No 07/18/25 15:29 than talking or can be heard Do you often feel tired/ No 07/18/25 15:29 fatigued/ sleepy during daytime? Has anyone observed you stop No 07/18/25 15:29 breathing during sleep? STOP Results Negative 07/18/25 15:29 QUESTION #5 FULL TEXT : Do you snore loudly (louder than talking or can be heard through closed doors)? 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 Specify any problems Hx of Preganancy in last 3 No 07/18/25 15:29 Months Nurse Filling Out Transfusion [email or web address] 07/18/25 15:29 & Questions: Date: 07/18/25 07/18/25 15:29 Time: 15:34 07/18/25 15:29 Patient unable to answer at this time (ie. confused, unrespo /Reproduction History /Reproductive History - contracts law professor: /Reproductive Hx- contracts law professor Hx Now No 07/18/25 15:29 Gestational Age (in weeks): EDC: Hx Hx Para Hx Section SAB No 07/18/25 15:29 Active Medications Active Medications: Current Medications Generic Name Dose Route Start Last Admin Trade Name Freq PRN Reason Stop Dose Admin Cefazolin Sodium 2 gm/ Sodium 110 mls @ 200 mls/hr 07/20/25 12:00 Chloride IV 07/20/25 12:32 INTRAOP ONE Lactated Ringer's 1,000 mls @ 15 mls/hr 07/20/25 10:45 07/20/25 11:00 IV 15 mls/hr .Q48H ROSA Administration PFSH Medical History Wears glasses Wears contact lenses Low iron Depression Asthma Migraines Home Medications Medication Instructions Recorded Last Taken Type nvzwcmcz-ybp-trmw-FA-Ca carb-vit K 1 tab PO DAILY 08/23/21 Unknown History 18 mg iron-400 mcg-500 mg tablet bupropion HCl 150 mg 24 hr tablet, 150 mg PO QAM 10/27/23 07/20/25 06:15 History extended release ferrous sulfate 325 mg (65 mg 325 mg PO DAILY 10/27/23 Unknown History iron) tablet omega 4-buy-zjv-fish oil 60 mg-90 1 cap PO QDAY 12/08/24 Unknown History mg-500 mg capsule (Fish Oil) topiramate 50 mg tablet 50 mg PO BID 12/08/24 07/20/25 06:15 History trazodone 150 mg tablet 150 mg PO QHS 12/08/24 Unknown History cephalexin 500 mg capsule 500 mg PO BID #14 caps 07/11/25 07/20/25 06:15 Rx ketorolac 10 mg tablet 10 mg PO Q8H PRN pain #14 tabs 07/11/25 Unknown Rx ondansetron 4 mg disintegrating 4 mg PO Q6H PRN nausea and 07/11/25 Unknown Rx tablet vomiting #20 tabs tamsulosin 0.4 mg capsule 0.4 mg PO DAILY #14 caps 07/11/25 07/20/25 06:15 Rx ibuprofen 200 mg capsule 200 mg PO Q6H PRN pain 07/12/25 Unknown History oxycodone-acetaminophen 5 mg-325 1 tab PO TID PRN pain 10 days #20 07/12/25 07/20/25 06:15 Rx mg tablet (Percocet) tabs doxycycline hyclate 100 mg tablet 100 mg PO BID #14 tabs 07/13/25 07/20/25 06:15 Rx folic acid 0.8 mg capsule 800 mcg PO DAILY 07/18/25 Unknown History loratadine 10 mg tablet 10 mg PO DAILY 07/18/25 Unknown History (Allerclear) Allergy/AdvReac Type Severity Reaction Status Date / Time No Known Allergies Allergy Verified 07/20/25 10:44 Family History Father Cancer prostate and skin Diabetes Parkinson disease Heart disease Myocardial infarction x2 Hypertension Breast cancer Mother Brain aneurysm Surgical History Status post myringotomy with insertion of tube History of tonsillectomy and adenoidectomy Hx of section Social History Smoking Status: Never smoker alcohol intake: never substance use type: does not use caffeine: No what type of physical activity do you participate in: walking frequency: 3-4 times per week seatbelt use: always do you feel safe at home: Yes 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
[2025-07-20] MEDS: Midazolam 2 MG/2 ML Syringe IV (11:32)
[2025-07-20] MEDS: fentaNYL 100 MCG/2 ML Ampul IV (11:35)
[2025-07-20] MEDS: Lidocaine 1% (5 ml sdv) 5 ML Vial 10 ML IV (11:35)
[2025-07-20] MEDS: Cefazolin 1 GM/5 ML Vial 2 GM IV (11:39)
[2025-07-20] MEDS: Ketorolac 30 MG/ML Syringe 15 MG IV (11:49)
--- NOTE | 2025-07-20 12:00 | CALC_PTH ---
PATIENT: ELVER TELLO LOC: [facility] [place] U#:[id number] AGE/SX: 39/F ROOM: RE07/20/[address]: Dr. Elida Brady MD : 1985 BED: DIS: 07/20/2025 SPEC #: [id number] RECD: 07/20/25 12:23 STATUS: TONI TAMMI #: [id number] JAMMIE: 07/20/25 12:[address]: Elida Brady DEPT: SURGICAL PATHOLOGY RECD BY: Mehdi Black ENTERED: 07/20/25 13:17 SP TYPE: Calculi OTHR DR: Bebeto Forbes, PRINTING PLATE CLERK-C Tissues: A - CALCULI Procedures: Surgery Specimen Level I HEADER OPERATION: Cysto, left ureteroscopy, laser litho, stone basket PRE-OP DIAGNOSIS: Ureteral calculus, left flank pain, hydronephrosis TISSUE SUBMITTED: A- Left renal calculi GROSS DIAGNOSIS A. Left renal calculi, removal: * Urolithiasis (gross examination only). * Sent for chemical analysis (separate report will follow). COMMENT The calculus is submitted in its entirety for chemical stone analysis. The results from this study will be reported separately. GROSS DESCRIPTION A. Received fresh labeled the patient's name and date of . Designated as "left renal calculi" are 2 red-brown calculi, 0.3 cm and 0.6 cm. No sections are submitted. The specimen is for gross examination only. The specimen is sent for stone analysis MA 07/20/2025 CPT:78450
--- NOTE | 2025-07-20 12:19 | PCM.POST.ANE ---
Anesthesia: Postop Eval I Current Vital Signs Temperature: 97 F Pulse Rate: 67 Blood Pressure: 119/78 Respiratory Rate: 18 Pulse Ox: 100 Oxygen Delivery Method: Simple Mask Oxygen Flow Rate (L/min): 4 Assessment Airway patent: Yes Spontaneous unlabored respirations: Yes Mental status: Asleep nausea: No Vomiting: No Anesthesia Complication: No Fluid Hydration Crystalloid volume administer (ml): 700 Total IV fluid infused: 700 Progress Note Anesthesia document: Postop Eval 1 completed: Yes
--- NOTE | 2025-07-20 12:37 | PCM.OPRPT ---
Operative Report (Standard) Operative Information Date of Procedure: 07/20/25 Pre-Operative Diagnosis: Left ureteral stone Post-Operative Diagnosis: Same Surgery/Procedure Performed: Cystoscopy, left ureteroscopy, laser lithotripsy, stone basket extraction, left ureteral stent insertion supervising appraiser: No Type of Anesthesia: General RN Documented Start/Stop Times: Operation Date: 07/20/25 12:00 Case Time Into Pre-Op 07/20/25 10:30 Out of Pre-Op 07/20/25 11:27 Anesthesia Start 07/20/25 11:32 Into Room 07/20/25 11:32 Procedure Start 07/20/25 11:43 Procedure End 07/20/25 12:08 Anesthesia End 07/20/25 12:14 Out of Room 07/20/25 12:14 Into Recovery 07/20/25 12:16 Procedure Start Time: 11:43 Procedure Stop Time: 12:08 Select all DRAINS/GRAFTS/IMPLANTS that apply: Drains Drain details: 6 Citizen Of [place] by 26 cm JJ stent Estimated Blood Loss: <5cc Specimen collected: Yes Description of specimen(s) removed: Ureteral stones Description of surgery: The patient is a 39-year-old female with a left proximal ureteral stone who presents for intervention. Informed consent was obtained. The patient was taken to the operating room and placed on the operating room table. Anesthesia monitored the head, neck, airway, IV access and vital signs throughout the case. Once anesthesia was appropriate ministered, she was placed into dorsolithotomy position was prepped and draped in usual sterile fashion. The cystoscope was inserted through the urethra under direct visualization into the urinary bladder. Visualization of the mucosa was performed revealing no evidence of mass, erythema, ulceration or foreign body. The left ureteral orifice was intubated with a 0.035 Glidewire which was advanced into the renal pelvis without difficulty. A second Glidewire was placed alongside the first. One of the wires was used for insertion of a flexible ureteroscope over the wire into the ureter. The wire was then removed. The stone was identified in the proximal ureter. The stone was then broken into small fragments using a 200 µm laser fiber. This pieces were removed using a basket. When all of the fragments were removed, the ureter revealed no evidence of injury. The cystoscope was utilized for placing a 6 Citizen Of [place] 26 cm JJ stent over the indwelling 0.035 remaining Glidewire. There was good positioning in the renal pelvis as well as the urinary bladder. The bladder was emptied and the cystoscope was removed. She was awakened and taken to the recovery room in good condition. There were no complications during this procedure. Surgical Findings: No complications, removal left proximal ureteral calculus Complications Complications: No Admit VTE Documentation VTE Present on Admission: Yes VTE Mechan Device Prophylaxis: SCD's VTE Pharm Prophylaxis ordered?: No Reason prophylaxis not ordered: Treatment Not Indicated
--- NOTE | 2025-07-20 14:30 | POSTOPAN2_ITS ---
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 Spontaneous unlabored Yes 07/20/25 12:20 RECREATIONAL VEHICLE REPAIRER.[email or web address] respirations Mental status Asleep 07/20/25 12:20 RECREATIONAL VEHICLE [email or web address] nausea No 07/20/25 12:20 RECREATIONAL VEHICLE REPAIRER.[email or web address] Vomiting No 07/20/25 12:20 RECREATIONAL VEHICLE [email or web address] Anesthesia Postop Eval I: Fluid Summary Crystalloid volume administer 700 07/20/25 12:20 RECREATIONAL VEHICLE REPAIRER.RWOO (ml) Colloids volume administered ( ml) Blood Product volume administered (ml) Total IV fluid infused 700 07/20/25 12:20 RECREATIONAL VEHICLE REPAIRER.[email or web address] Anesthesia Postop Eval I: Summary Notes Anesthesia Complication No 07/20/25 12:20 RECREATIONAL VEHICLE REPAIRER.[email or web address] Anesthesia Complication Comment: Post-operative progress note Anesthesia: Postop Eval II Evaluation Mental status: Awake and Calm Pain Level: 1 nausea: No Vomiting: No Complications Anesthesia Complication: No
--- NOTE | 2025-07-20 14:30 | PCM.POSTANE2 ---
Anesthesia Postop Eval I Sum Postop Eval Completion status Anesthesia document: Postop Eval 1 completed: Yes Anesthesia Postop Eval I Summary Anesthesia Postop Eval I Summary: Anesthesia Postop Eval I: Assessment Summary Airway patent Yes 07/20/25 12:20 DIRECTOR [email or web address] Spontaneous unlabored Yes 07/20/25 12:20 DIRECTOR [email or web address] respirations Mental status Asleep 07/20/25 12:20 DIRECTOR [email or web address] nausea No 07/20/25 12:20 DIRECTOR [email or web address] Vomiting No 07/20/25 12:20 DIRECTOR [email or web address] Anesthesia Postop Eval I: Fluid Summary Crystalloid volume administer 700 07/20/25 12:20 DIRECTOR [email or web address] (ml) Colloids volume administered ( ml) Blood Product volume administered (ml) Total IV fluid infused 700 07/20/25 12:20 DIRECTOR [email or web address] Anesthesia Postop Eval I: Summary Notes Anesthesia Complication No 07/20/25 12:20 DIRECTOR [email or web address] Anesthesia Complication Comment: Post-operative progress note Anesthesia: Postop Eval II Evaluation Mental status: Awake and Calm Pain Level: 1 nausea: No Vomiting: No Complications Anesthesia Complication: No
[2025-07-31 23:08] LABS: Ca Oxalate, Dihydrate 50 % (.); Ca Oxalate, Monohydrate 10 % (.)
== END 2025-07-20 13:30 | disposition home or self-care (01) ==
LOC: SDC 10:17 → AC 10:22
PROVIDERS: PCP Nurse Practitioner Family; Referring Provider Urology; Visit Provider Urology
PROC: 0TJ98ZZ Inspection of Ureter, Via Natural or Artificial Opening Endoscopic (ICD-10-PCS; CPT 52352; principal; 2025-07-20 11:45)
DX: N13.2 Hydronephrosis with renal and ureteral calculous obstruction (principal); J45.909 Unspecified asthma, uncomplicated; F32.A Depression, unspecified; Z79.899 Other long term (current) drug therapy
CPT/HCPCS: 52356; 00873; 76000; 81025; 82360; 88300; C1769; C2617; J2405

== ENCOUNTER → 2025-08-04 | Outpatient (CLI) | payer BC, SELFPAY ==
--- NOTE | 2025-08-04 15:23 | US_ITS ---
PROCEDURE: PELVIC W/ TRANSVAGINAL 08/04/2025 REASON FOR EXAM: PELVIC MASS ON CT TECHNIQUE: Procedure Code: USPELTVAG Modality: US Procedure: PELVIC W/ TRANSVAGINAL COMPARISON: None FINDINGS: Uterus: The uterus measures 9 x 5.8 x 4.4 cm. Homogenous appearance without evidence of discrete cyst, or echogenic calculi. Superior to uterus there is a large, exophytic fibroid measuring 13.3 x 9.5 x 9.2 cm. The endometrial stripe measures 9 mm. Multiple simple nabothian cysts visualized in the cervix. Right ovary: The right ovary is normal in size measuring 3.1 x 2.7 x 1.7 cm. No suspicious masses. Blood flow to the adnexa is normal with arterial and venous waveforms documented. Left ovary: The left ovary is normal in size measuring 1.9 x 1.7 x 1.3 cm. No suspicious masses. Blood flow to the adnexa is normal with arterial and venous waveforms documented. BLADDER: The bladder wall measures less than less than 3 mm. The ureteral jets were notseen. Prevoid bladder volume is 285 ml. No ascites. US/Pelvic w/ Transvaginal IMPRESSION: 1. No evidence of acute ovarian torsion. 2. 13.3 cm exophytic fibroid. Reading Location: [id number]
== END | disposition home or self-care (01) ==
LOC: US 15:20
PROVIDERS: PCP Nurse Practitioner Family; Referring Provider Obstetrics & Gynecology; Visit Provider Obstetrics & Gynecology
DX: D25.9 Leiomyoma of uterus, unspecified (principal); N88.8 Other specified noninflammatory disorders of cervix uteri
CPT/HCPCS: 76830; 76856

== ENCOUNTER → 2025-08-22 | Outpatient (CLI) | payer BC, SELFPAY ==
--- NOTE | 2025-08-22 08:07 | MRI_ITS ---
PROCEDURE: PELVIS W/WO CONTRAST 08/22/2025 REASON FOR EXAM: CONFIRM EXOPHYTIC FIBROID TECHNIQUE: Procedure Code: [id number] Modality: MR Procedure: PELVIS W/WO CONTRAST Multiplanar and multisequence images were obtained. CONTRAST: Clariscan VOLUME: 23 mL COMPARISON: No priors available at this facility FINDINGS: Uterus: Uterus is anteverted. There is a defect at the distal portion of the body anteriorly from prior . Endometrium is 8 mm in thickness. Junctional zone is otherwise normal. No uterine fibroid is seen. Right Ovary: Normal. Simple ovarian follicular type cysts are seen with the largest measuring 1.4 x 1.9 cm. Left Ovary: Large mass is seen involving the left ovary. The more normal tissue and some of the follicles are posterior the periphery right laterally. The largest mass centrally contains fluid and macroscopic fat contents. The fat is anterior and the intermediate signal fluid is posterior. The lesion is estimated at 12.1 x 8.4 x 10.9 cm. Bladder: Normal. Bladder neck is unremarkable. Cul-de-sac: Scant free fluid MRI/Pelvis W/WO Contrast IMPRESSION: 1. No uterine mass seen. Evidence of prior . 2. Large left ovarian mass with fat and complicated fluid density possibly rep resenting a dermoid with some evidence of prior hemorrhage. The lesion is fairly large measuring 12.1 x 8.4 x 10.9 cm. Project Asst c onsultation suggested. 3. Benign simple right ovarian cysts. No follow-up required. Reading Location: [id number]
== END | disposition home or self-care (01) ==
PROVIDERS: PCP Nurse Practitioner Family; Referring Provider Obstetrics & Gynecology; Visit Provider Obstetrics & Gynecology
DX: R19.00 Intra-abdominal and pelvic swelling, mass and lump, unspecified site (principal)
CPT/HCPCS: 72197; A9575

== ENCOUNTER → 2025-09-07 | Outpatient (CLI) | payer BC, SELFPAY ==
--- NOTE | 2025-09-07 08:59 | US_ITS ---
PROCEDURE: GALLBLADDER 09/07/2025 REASON FOR EXAM: CHECK FOR GALLSTONES TECHNIQUE: Procedure Code: USGB Modality: US Procedure: GALLBLADDER COMPARISON: CT abdomen and pelvis with IV contrast, 07/11/2025. FINDINGS: Liver: Grossly normal size and echotexture. MPV demonstrates normal hepatopetal flow. Gallbladder: There are multiple gallstones the largest measuring 1.9 cm in diameter. There is no gallbladder wall thickening or pericholecystic fluid. There is no Enriquez's sign. Common bile duct: 2 mm. Pancreas: Visualized portions are unremarkable. The distal body and tail are obscured by bowel gas. Other: The right kidney measures 10.5 x 6.1 x 4.4 cm and is unremarkable. No right upper quadrant ascites. US/Gallbladder IMPRESSION: Cholelithiasis without evidence of cholecystitis. Reading Location: [place] [id number]
== END | disposition home or self-care (01) ==
PROVIDERS: PCP Nurse Practitioner Family; Referring Provider Obstetrics & Gynecology; Visit Provider Obstetrics & Gynecology
DX: K82.8 Other specified diseases of gallbladder (principal)
CPT/HCPCS: 76705

== ENCOUNTER 2025-09-26 08:14 | Day surgery (SDC) | payer BC, SELFPAY ==
--- NOTE | 2025-09-25 22:31 | PCM.HP.BLA ---
History and Physical Vital Signs 08/29/2515:11 09/15/2515:14 09/18/2509:51 Height 5 ft 5 in 5 ft 5 in 5 ft 5 in Weight: 251 lb 257 lb 3 oz BMI 41.8 42.7 BP 121/95 H 117/86 H Pulse 85 Intake Visit Reasons: Preop laparoscopy ovarian cystectomy poss. 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 Required: No Is patient in pain?: No Allergies No Known Allergies Allergy (Verified 09/18/25 09:55) Medications ?Medication ?Instructions ?Recorded ?Confirmed ?Type vhhpvglz-tii-vcqv-FA-Ca carb-vit K 1 tab PO DAILY 08/23/21 09/18/25 History 18 mg iron-400 mcg-500 mg tablet bupropion HCl 150 mg 24 hr tablet, 150 mg PO QAM 10/27/23 09/18/25 History extended release ferrous sulfate 325 mg (65 mg 325 mg PO DAILY 10/27/23 09/18/25 History iron) tablet omega 4-adw-dqh-fish oil 60 mg-90 1 cap PO QDAY 12/08/24 09/18/25 History mg-500 mg capsule (Fish Oil) topiramate 50 mg tablet 50 mg PO BID 12/08/24 09/18/25 History trazodone 150 mg tablet 150 mg PO QHS 12/08/24 09/18/25 History folic acid 0.8 mg capsule 800 mcg PO DAILY 07/18/25 09/18/25 History loratadine 10 mg tablet 10 mg PO DAILY 07/18/25 09/18/25 History (Allerclear) qlbxmlp-acvsngvimzdtr-zmpumaps 250 2 tab PO Q6H PRN pain 09/15/25 09/18/25 History mg-250 mg-65 mg tablet (Excedrin Extra Strength) potassium citrate 15 mEq (1,620 15 meq PO BID #180 tabs 09/15/25 09/18/25 Rx mg) tablet,extended release Post menopausal: No Patient : No : No PFSH Medical History Wears glasses Wears contact lenses Low iron Depression Asthma Migraines Surgical History History of cystoscopy Status post myringotomy with insertion of tube History of tonsillectomy and adenoidectomy Hx of section Family History Father Cancer prostate and skin Diabetes Parkinson disease Heart disease Myocardial infarction x2 Hypertension Breast cancer Mother Brain aneurysm Social History Smoking Status: Never smoker alcohol intake: never substance use type: does not use caffeine: No what type of physical activity do you participate in: walking frequency: 3-4 times per week seatbelt use: always do you feel safe at home: Yes 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 barry Details: ELVER TELLO is a 39 year old who presents for HPI Comments Details: HPI: The patient is a female with a history of asthma, migraines, depression, and kidney stones presenting for a pre-operative visit. Pre-Operative Evaluation - Scheduled for laparoscopic ovarian cystectomy on the . - No current pelvic pain. - Incidental finding of a large mass on the left ovary, suspected to be a dermoid cyst. - No current symptoms of fever, fatigue, visual changes, chest pain, shortness of breath, cough, wheezing, nausea, vomiting, bloating, dysuria, or low back pain. - No history of blood clots. - No thyroid issues or cold/heat intolerance. - No new mood complaints. Past Surgical History - Cystoscopy with kidney stone removal. - Ear surgery. - Two C-sections. - Dermoid cyst removal from the right ovary. - Tonsillectomy and adenoidectomy. Past Medical History - Asthma (childhood). - Migraines. - Depression. - Kidney stones. Current Medications and Supplements - Topamax. Subjective Sections: Current Meds - Topamax PMHx - Asthma (childhood) - Migraines - Depression - Kidney stones PSHx - Cystoscopy with kidney stone removal - Ear surgery - 2 C-sections - Right ovarian dermoid removal at time of - Tonsillectomy and adenoidectomy Social Hx - Caffeine use: Denies coffee consumption ROS: Constitutional: (-) fever, (-) fatigue Eyes: (-) visual changes Cardiovascular: (-) chest pain, (-) leg swelling Respiratory: (-) shortness of breath, (-) cough, (-) wheezing Gastrointestinal: (-) nausea, (-) vomiting, (-) bloating Genitourinary: (-) pelvic pain, (-) dysuria Musculoskeletal: (-) low back pain Psychiatric: (-) mood changes Endocrine: (-) cold intolerance, (-) heat intolerance PhysicalExam: GENERAL: Pleasant; in no apparent distress CARDIOVASCULAR: Heart rate and rhythm normal PULMONARY: normal inspiratory effort, lungs clear to auscultation bilaterally ABDOMEN: soft, non-tender, no masses, no hepatosplenomegaly NECK: Thyroid gland non-tender, no enlargement NEURO: alert and oriented x3 EXTREMITIES: normal, no edema History 3 Elective abortions Hx Para 2 Spontaneous abortions Hx # Term Pregnancies 2 Ectopic pregnancies Hx # Pregnancies Multiple births # of living children 2 Past Pregnancies Del. Date Name GA/Weeks Outcome Route Bth Weight Infant Gen Labor Lgth Anesthesia Del Locatn Provider FOB 01/23/16 Nate 40 live - full term 7 lbs 14 oz Male 24 hours epidural 01/18/20 Vanessa 39 live - full term 6lbs 6oz Female spinal [facility] Delivery Date: 01/23/16 Last Updated by: Marlen Rutledge epidural did not work and pt. felt everything Delivery Date: 01/18/20 Last Updated by: Christianne Triplett RLTCS RIGHT DERMOID CYST REMOVAL. Coding Level of Care Code No Charge Diagnoses Dermoid cyst D36.9 Additional Codes SDOH Screening - Does the patient want assistance with any of the above?: No (G0136) Assessment and Plan Assessment and Plan (1) Dermoid cyst: Status: Acute Comment: left ovary plan left laparoscopic ovarian cystectomy possible oophorectomy Plan Assessment/Plan: # Encounter for other preprocedural examination (Z01.818): - Patient evaluated in anticipation of laparoscopic surgery scheduled on 09/26 at 10:40, with arrival time at 8:30. - Advised no solid food for 8 hours before surgery; clear liquids are permitted up to 2 hours prior to scheduled start. - Instructed to use provided chlorhexidine soap (neck down) the night before and morning of surgery to reduce infection risk. - Discussed standard risks of anesthesia, including airway management and rare but possible complications, with acknowledgment that the most statistically dangerous aspect is vehicular travel. - Reviewed that sequential compression devices (SCDs) will be applied intraoperatively to mitigate venous thromboembolism risk. - Patient consented to screening and to emergency administration of blood products if warranted. - Coordinated perisurgical medication logistics: prescriptions will be sent to the pharmacy on the day of surgery for in-house delivery, minimizing additional post-op stops. - Partner, Renny, designated as the individual accompanying patient on the day of the procedure. 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 - Plan for laparoscopic ovarian cystectomy, with possible oophorectomy if no healthy ovarian tissue remains. - Explained potential need to decompress the cyst (containing sebaceous material), which may heighten infection risk at the primary incision site. Emphasized keeping incisions clean and dry postoperatively. - Antibiotic prophylaxis not routinely indicated unless intraoperative findings dictate otherwise. - Discussed risk of bleeding, infection, and incidental injury to bowel, bladder, or vascular structures, noting previous abdominal surgeries may increase, but do not substantially heighten, these risks. - Will inspect the contralateral ovary and address any unexpected findings. If significant findings arise, spouse will be updated for further consent. Patient Instructions: - Use the special surgical soap provided (neck down) the night before and again the morning of surgery to lower infection risk. - Do not eat or have anything by mouth for 8 hours before surgery. You may have clear liquids (water, black coffee, black tea) up until 2 hours before your arrival. - Arrive at the surgery center at 8:30 AM on September 26; your surgery is scheduled for 10:40 AM (exact time may be confirmed the day before). - You agreed to a pre-op test and to receive blood products in an emergency. - After surgery, your prescriptions will be sent to the pharmacy and delivered to your room?no need to stop at the pharmacy. - Keep all incision sites (especially the belly-button incision) clean and dry; watch closely for any increased redness, swelling, warmth, or drainage. - Continue your Topamax as prescribed and drink plenty of water daily.
[2025-09-26] VITALS (11 sets, daily range): BP systolic 117–134; BP diastolic 72–92; PULSE 14–98; RESP 12–93; TEMP 36.6–36.9; O2SAT 88–99; BMI 42.5
--- NOTE | 2025-09-26 | OV_PTH ---
PATIENT: ELVER TELLO LOC: [facility] [place] U#:[id number] AGE/SX: 39/F ROOM: RE09/26/[address]: Dr. Maribel Young MD : [id number] BED: DIS: 09/26/2025 SPEC #: [id number] RECD: 09/26/25 13:16 STATUS: TONI REJasmeet #: [id number] JAMMIE: 09/26/25 00:[address]: Maribel Young DEPT: SURGICAL PATHOLOGY RECD BY: Syd Vo ENTERED: 09/26/25 13:16 SP TYPE: OVARY OTHR DR: Bebeto Forbes, PAM Tissues: A - Left ovary Procedures: Surgery Specimen Level V HEADER OPERATION: Laparoscopic, ovarian cystectomy PRE-OP DIAGNOSIS: Dermoid cyst TISSUE SUBMITTED: A. Left ovarian cyst wall MICROSCOPIC DIAGNOSIS A. Left ovary, cyst wall, excision: - Mature cystic teratoma. COMMENT See also cytology specimen [id number]. MICROSCOPIC DESCRIPTION Slides are reviewed. GROSS DESCRIPTION The specimen is received in one properly labeled container with the patient's name and accession number. A. ?The specimen is designated left ovarian cyst wall and consists of a 10.0 x 6.2 x 2.0 cm severely disrupted cystic structure. ?The external surface is smooth madsen-pink with focal red stippling. ?The cyst lining is madsen-pink with loosely attached pale madsen to yellow friable material and a minimal amount of loosely attached dark brown hair. ?The cyst wall ranges from 0.2 to 0.7 cm thick. ?Further sectioning through the cyst wall reveals additional cystic structures filled with madsen to yellow gelatinous material. ?Further sectioning through the cyst wall reveals focal calcified areas. ?Also in the container is a 6.5 x 6.0 x 2.0 cm aggregate of pale madsen-yellow, extremely friable material. RS 4 Cassettes: A1-4, asset protection representative cyst wall to include thickened areas and intramural cystic structures [facility] 09/26/2025 CPT: 82471
[2025-09-26] MEDS: Lactated Ringers 1,000 ML 15 ML IV (08:36)
[2025-09-26 08:41] LABS: Internal QC Validated? YES +Cl - CLEAR BKGD; Pregnancy, Urine Negative Negative
--- NOTE | 2025-09-26 08:52 | PCM.PRE.AN2 ---
ASA Classification* ASA Classification ASA Classification: 3 Assessment & Plan Anesthesia* Anesthesia Assessment Anesthesia Assessment: Discussed sedation and/or anesthesia options, risks, benefits, and alternatives with patient/parents/legal guardian/POA. Questions invited. The patient/parents/legal guardian/POA seems to understand and agrees to proceed with anesthesia plan. Reviewed the physical assessment, medical history, allergy history and patient home medications list prior to surgery/procedure/anesthetic and documented any changes. Performed airway and anesthesia risk assessments. Anesthesia Type Anesthesia Type: General History Source History Obtained from:: Patient and Chart Anesthesia Focused Assessment* Temperature: 98.4 F Pulse Rate: 98 Blood Pressure: 117/72 Respiratory Rate: 18 Pulse Ox: 99 Oxygen Delivery Method: Room Air Airway Assessment Mouth opens: >3 cm Mallampati Score: II Teeth Condition: Missing (Right upper molar is missing. AP rested teeth are tight) Neck Range of motion (ROM): Limited ROM (Slight Decrease) Labs Anesthesia Preop lab: CBC WBC, (4.4-11.0) 12.3 K/mm3 H 07/11/25, 12:44 RBC, (4.2-5.4) 4.12 M/mm3 L 07/11/25, 12:44 Hgb, (12.0-15.0) 12.4 g/dL 07/11/25, 12:44 Hct, (37-47) 36.8 % L 07/11/25, 12:44 Plt Count, (150-450) 316 K/mm3 07/11/25, 12:44 CHEMISTRY Potassium, (3.3-5.1) 3.7 mmol/L 07/11/25, 12:44 Sodium, (133-145) 138 mmol/L 07/11/25, 12:44 BUN, (4-19) 13 mg/dL 07/11/25, 12:44 Creatinine, (0.70-1.20) 1.44 mg/dL H 07/11/25, 12:44 Glucose, (70-99) 91 mg/dL 07/11/25, 12:44 TSH, (0.358-3.74) 1.89 uIU/mL 08/20/22, 10:07 COAG Urine Test Negative Negative Today, 08:25 Pre-Assessment Diagnosis/Proposed Procedure Planned Operative Procedure(s): (L) Laparoscopic, Ovarian Cystectomy, possible Oophorectomy Anesthesia History Anesthesia History - photo graphics librarian: Anesthesia History - photo graphics librarian Hx Hospitalization No 09/15/25 10:11 Any Problems With Anesthesia Yes: DURING , FELT 09/15/25 10:11 EVERYTHING Cholinesterase deficiency No 09/15/25 10:11 You/Your Family Experience No 09/15/25 10:11 fever (hyperthermia) with Relationship Recent Exposure to Contagious No 09/26/25 08:32 Disease Does patient have nerve No 09/15/25 10:11 stimulator Patient instructed to have device shut off --Does patient have Pacemaker No 09/26/25 08:32 or ICD? When Was Last Pacemaker Check QUESTION #4 FULL TEXT: You/Your Family Experience fever (hyperthermia) with Anesthesia Last Oral Intake Last Oral intake: Last Oral Intake NPO since 06:45 09/26/25 08:32 Meds taken in AM with sips of Yes 09/26/25 08:32 water? Meds patient instructed to topiramate 09/26/25 08:32 take am of surgery Any additional information?: Yes Meds taken in AM with sips of water?: Yes PONV PONV - photo graphics librarian: PONV - photo graphics librarian Female Yes 09/15/25 10:11 HX of Motion Sickness Yes 09/15/25 10:11 HX of N/V After Surgery No 09/15/25 10:11 Non-Smoker Yes 09/15/25 10:11 Duration of Surgery greater No 09/15/25 10:11 than 60 minutes Number of Risk Factors 3 09/15/25 10:11 PONV Score Moderate Risk 09/15/25 10:11 Height & Weight Height & Weight: Anesthesia: Height & Weight Height 5 ft 5 in 09/26/25 08:32 Weight: 116 kg 09/26/25 08:32 Body Mass Index (BMI) 42.5 09/26/25 08:32 Respiratory Assessment Respiratory Assessment - photo graphics librarian: Respiratory Tract Infection Hx - photo graphics librarian Hx Respiratory Tract Infection No 09/15/25 10:11 STOP Sleep Apnea STOP Sleep Apnea - photo graphics librarian: STOP Sleep Apnea - photo graphics librarian Hx Hypertension No 09/15/25 10:11 Hx Sleep Apnea No 09/15/25 10:11 CPAP BIPAP Do you snore loudly (louder No 09/15/25 10:11 than talking or can be heard Do you often feel tired/ No 09/15/25 10:11 fatigued/ sleepy during daytime? Has anyone observed you stop No 09/15/25 10:11 breathing during sleep? STOP Results Negative 09/15/25 10:11 QUESTION #5 FULL TEXT : Do you snore loudly (louder than talking or can be heard through closed doors)? 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 Specify any problems Hx of Preganancy in last 3 No 09/15/25 10:11 Months Nurse Filling Out Transfusion VCHRISTIN 09/15/25 10:11 & Questions: Date: 09/15/25 09/15/25 10:11 Time: 10:12 09/15/25 10:11 Patient unable to answer at this time (ie. confused, unrespo /Reproduction History /Reproductive History - photo graphics librarian: /Reproductive Hx- photo graphics librarian Hx Now No 09/15/25 10:11 Gestational Age (in weeks): EDC: Hx Hx Para Hx Section SAB No 09/18/25 09:55 Does the father of the baby or his family experience fever w Father of the baby Malignant Hypertension history comment Active Medications Active Medications: Current Medications Generic Name Dose Route Start Last Admin Trade Name Freq PRN Reason Stop Dose Admin Lactated Ringer's 1,000 mls @ 15 mls/hr 09/26/25 08:30 09/26/25 08:36 IV 15 mls/hr .Q48H ROSA Administration PFSH Medical History Wears glasses Wears contact lenses Low iron Depression Asthma Migraines Home Medications ?Medication ?Instructions ?Recorded ?Last Taken ?Type ngfsbhva-xdy-ixzz-FA-Ca carb-vit K 1 tab PO DAILY 08/23/21 09/25/25 History 18 mg iron-400 mcg-500 mg tablet bupropion HCl 150 mg 24 hr tablet, 150 mg PO QAM 10/27/23 09/25/25 History extended release ferrous sulfate 325 mg (65 mg 325 mg PO DAILY 10/27/23 09/25/25 History iron) tablet omega 2-yfu-qkr-fish oil 60 mg-90 1 cap PO QDAY 12/08/24 09/25/25 History mg-500 mg capsule (Fish Oil) topiramate 50 mg tablet 50 mg PO BID 12/08/24 09/26/25 History trazodone 150 mg tablet 150 mg PO QHS 12/08/24 09/25/25 History folic acid 0.8 mg capsule 800 mcg PO DAILY 07/18/25 09/25/25 History loratadine 10 mg tablet 10 mg PO DAILY 07/18/25 09/25/25 History (Allerclear) wahyhqc-jnlqauductnfv-jwipfinv 250 2 tab PO Q6H PRN pain 09/15/25 Unknown History mg-250 mg-65 mg tablet (Excedrin Extra Strength) potassium citrate 15 mEq (1,620 15 meq PO BID #180 tabs 09/15/25 09/25/25 Rx mg) tablet,extended release Allergy/AdvReac Type Severity Reaction Status Date / Time No Known Allergies Allergy Verified 09/26/25 08:30 Family History Father Cancer prostate and skin Diabetes Parkinson disease Heart disease Myocardial infarction x2 Hypertension Breast cancer Mother Brain aneurysm Surgical History History of cystoscopy Status post myringotomy with insertion of tube History of tonsillectomy and adenoidectomy Hx of section Social History Smoking Status: Never smoker alcohol intake: never substance use type: does not use caffeine: No what type of physical activity do you participate in: walking frequency: 3-4 times per week seatbelt use: always do you feel safe at home: Yes 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 Physical Exam Resp clear to auscultation bilaterally
[2025-09-26 08:53] LABS: Hematocrit 34.1 % (37-47); Hemoglobin 11.7 g/dL (12.0-15.0); Mean Corp Hgb Conc 34.3 g/dL (32-36); Mean Corpuscular Volume 87.9 fL (81-99); Mean Platelet Vol. 10.3 fl (6.2-12.0); Platelet Count 310 K/mm3 (150-450); RBC Distribution Width CV 12.3 % (11.6-14.6); RBC Distribution Width SD 39.3 fl (35.1-43.9); Red Blood Count 3.88 M/mm3 (4.2-5.4); White Blood Count 9.0 K/mm3 (4.4-11.0)
[2025-09-26] MEDS: Midazolam 2 MG/2 ML Syringe IV (09:26)
[2025-09-26] MEDS: Lidocaine 1% (5 ml sdv) 5 ML Vial 10 ML IV (09:31)
[2025-09-26] MEDS: fentaNYL 100 MCG/2 ML Ampul IV (09:43)
--- NOTE | 2025-09-26 10:00 | FLU_PTH ---
PATIENT: ELVER TELLO [place] [facility] [place][id number] AGE/SX: 39/F ROOM: RE09/26/[address]: Dr. Maribel Young MD : 1985 BED: DIS: 09/26/2025 SPEC #: [id number] RECD: 09/26/25 12:32 STATUS: TONI TAMMI #: [id number] JAMMIE: 09/26/25 10:[address]: Maribel Young DEPT: CYTOLOGY RECD BY: Argenis Forde ENTERED: 09/26/25 14:00 SP TYPE: Fluid OTHR DR: Bebeto Forbes, LEAF FAT SCRAPER-C Tissues: OVARIAN CYST Procedures: Special Stain Group II Surgery Specimen Level IV Cytospin Fluid HEADER OPERATION: Laparoscopic, ovarian cystectomy PRE-OP DIAGNOSIS: Dermoid cyst TISSUE SUBMITTED: A. Left ovarian cyst fluid DIAGNOSIS CYTOLOGY A. Left ovarian cyst fluid, aspiration: - No malignant cells identified. - Mature squamous cells and anucleated squames present. COMMENT See also surgical pathology [id number]. CYTOLOGY STUDY Slides are reviewed. CYTOLOGY GROSS A. Received is 40 ml of white thick fluid labeled with the patient's name and and designated per the requisition as left ovarian cyst fluid. Submitted for cytology and cell block preparation. 09/26/2025 CPT: 04179,17544
--- NOTE | 2025-09-26 11:34 | OP.PCM_ITS ---
Multi Select Codes Urinary/Genital Urinary/Genital CPT Codes: 45436 Laproscopic BS/O Operative Report (Standard) Operative Information Date of Procedure: 09/26/25 Pre-Operative Diagnosis: see problem list Post-Operative Diagnosis: same Surgery/Procedure Performed: laparoscopic left ovarian cystectomy manager technical sales: Yes Plumbing Technician: Mary Shafer Tasks completed by nurse first assist: Opening & closing, Altering tissue and Insert Trochanter Additional technical support assistant?: No Type of Anesthesia: General RN Documented Start/Stop Times: Operation Date: 09/26/25 10:00 Case Time Into Pre-Op 09/26/25 08:23 Out of Pre-Op 09/26/25 09:23 Anesthesia Start 09/26/25 09:26 Into Room 09/26/25 09:26 Procedure Start 09/26/25 10:02 Procedure End 09/26/25 11:44 Anesthesia End 09/26/25 11:55 Out of Room 09/26/25 11:55 Into Recovery 09/26/25 11:56 Out of Recovery 09/26/25 12:54 Into Phase II Recovery 09/26/25 12:55 Out of Phase II 09/26/25 14:21 Procedure Start Time: 10:02 Procedure Stop Time: 11:44 Select all DRAINS/GRAFTS/IMPLANTS that apply: None Estimated Blood Loss: 25 Specimen collected: Yes Description of specimen(s) removed: left ovarian cyst and fluid Description of surgery: Patient was taken in the operating room and was placed under general anesthesia was prepped and draped in normal sterile fashion in the dorsal lithotomy position. Bladder was drained of clear urine and SCDs were on preoperatively. Uterus was sounded and a uterine manipulator was placed after dilating. Attention was then paid to the abdominal portion of the procedure and the umbilicus was elevated with towel clamps and injected with Marcaine and after a 5 mm incision was made and the Veress needle was entered into the abdomen confirmed to be intra-abdominal with a low opening pressure of less than 5 mmHg. Abdomen was insufflated with CO2 gas and a 5 mm optical trocar was placed under direct visualization. Left and right lower quadrant 5 mm ports were placed under direct visualization. additional 5mm suprapubic port was added for additional access was added. Uterus was well visualized and upon inspection of the pelvis left ovary was noted be significantly enlarged. Suction aspirator was injected with into the left ovary and it was attempted to drain it however extremely viscous fluid was encountered. This fluid was milked out of the ovary and some was placed into a bag to attempt removal. Fluid was sent for analysis. The ovary was opened up and cystectomy was performed with some normal ovary remaining on the left side that was noted to be healthy. Floseal paste over the base of the ovary for hemostasis. This was after copious irrigation of the pelvis was performed. Cole Zurita was used to close the right lower quadrant port because this was noted to be enlarged after removal of the remaining cyst wall tissue through the right lower quadrant port via bag. An additional suprapubic 5 mm port was placed to aid in operative handling.. Excellent hemostasis was noted in the pelvis. Liver and upper abdomen were visualized notably within normal limits and no other gross abnormalities were seen in the abdomen. All instruments removed from the abdomen after gas was desufflated. Port sites were closed with 3-0 Monocryl Steri's and op sites were applied. All instruments removed from the vagina and patient was awoken and taken recovery in stable condition. Surgical Findings: left dermoid cyst. vesicouterine adheisons Complications Complications: No
--- NOTE | 2025-09-26 11:36 | DCINST_ITS ---
Discharge Instructions DC O2, CPAP, BIPAP needs Home O2 Discharge instructions: No Dressing / Incision Discharge Activity: Return to Normal Activity, May Not Drive ( while taking narcotic pain meds, when pain free), May Shower and May Take a Tub Bath (in 7 days) May resume sexual activity in: 1 week Weight Bearing Status: Full weight bearing Dressing / Incision Call your doctor if your incision/area has: Continuous Slow Oozing, Sudden Increased Bleeding, Increased Pain/ Swelling, Increased Redness and Foul Smelling Discharge Call your doctor if you observe: Fever of 101 or Higher, Using more than 1 pad per hour, Shortness of breath, Chest pain and Uncontrolled pain Suture Line Care: Avoid Pulling/Pushing and Avoid Pinching/Bending Remove Dressing in: 1 week (if present) Cleanse incision/area with: Soap & Water and Keep Dressing Clean & Dry Follow Up Care When: Call to make an appointment with your doctor for a fu/incision check in 1- 2 weeks. Test Results: Test results from this visit will be discussed in further detail at your follow- up appointment, if applicable. Discharge Plan Admission Attending Provider: Maribel Young Primary Care Provider: Bebeto Forbes HADOOP ANALYST Instructions Print Language: Urdu Discharge Orders/Prescriptions Prescriptions: New oxycodone-acetaminophen [Percocet] 5-325 mg tablet 1 tab PO Q4H PRN (Reason: pain) 7 Days Qty: 20 0RF naproxen 500 mg tablet 500 mg PO BID PRN PRN (Reason: Pain) Qty: 30 1RF No Action ferrous sulfate 325 mg (65 mg iron) tablet 325 mg PO DAILY bupropion HCl 150 mg tablet extended release 24 hr 150 mg PO QAM trazodone 150 mg tablet 150 mg PO QHS topiramate 50 mg tablet 50 mg PO BID omega 9-iqu-bep-fish oil [Fish Oil] 60-90-500 mg capsule 1 cap PO QDAY potassium citrate 15 mEq tablet extended release 15 meq PO BID Qty: 180 3RF at-ie-nxau-FA-Ca carb-vit K 18 mg iron-400 mcg-500 mg Tablet 1 tab PO DAILY folic acid 0.8 mg capsule 800 mcg PO DAILY loratadine [Allerclear] 10 mg tablet 10 mg PO DAILY ppunpgy-oafmiozccqfcm-udpojvdg [Excedrin Extra Strength] 250-250-65 mg tablet 2 tab PO Q6H PRN (Reason: pain) Referrals / Follow Up: Bebeto Forbes HADOOP ANALYST, HADOOP ANALYST-C [Primary Care Provider, Medical] Disposition Disposition (needs filled in before D/C Order can be placed): Home, Self Care
--- NOTE | 2025-09-26 12:01 | PCM.POST.ANE ---
Anesthesia: Postop Eval I Current Vital Signs Temperature: 97.8 F Pulse Rate: 14 Blood Pressure: 133/92 Respiratory Rate: 14 Pulse Ox: 92 Assessment Airway patent: Yes Spontaneous unlabored respirations: Yes nausea: No Vomiting: No Anesthesia Complication: No Fluid Hydration Crystalloid volume administer (ml): 1,200 Total IV fluid infused: 1,200 Progress Note Anesthesia document: Postop Eval 1 completed: Yes
--- NOTE | 2025-09-26 12:39 | POSTOPAN2_ITS ---
Anesthesia Postop Eval I Sum Postop Eval Completion status Anesthesia document: Postop Eval 1 completed: Yes Anesthesia Postop Eval I Summary Anesthesia Postop Eval I Summary: Anesthesia Postop Eval I: Assessment Summary Airway patent Yes 09/26/25 12:01 ANIMAL SHELTER [email or web address] Spontaneous unlabored Yes 09/26/25 12:01 ANIMAL SHELTER [email or web address] respirations Mental status nausea No 09/26/25 12:01 ANIMAL SHELTER [email or web address] Vomiting No 09/26/25 12:01 ANIMAL SHELTER [email or web address] Anesthesia Postop Eval I: Fluid Summary Crystalloid volume administer 1,200 09/26/25 12:01 ANIMAL SHELTER [email or web address] (ml) Colloids volume administered ( ml) Blood Product volume administered (ml) Total IV fluid infused 1,200 09/26/25 12:01 ANIMAL SHELTER [email or web address] Anesthesia Postop Eval I: Summary Notes Anesthesia Complication No 09/26/25 12:01 ANIMAL SHELTER [email or web address] Anesthesia Complication Comment: Post-operative progress note Anesthesia: Postop Eval II Evaluation Mental status: Awake and Calm Pain Level: 1 nausea: No Vomiting: No Complications Anesthesia Complication: No
--- NOTE | 2025-09-26 12:39 | PCM.POSTANE2 ---
Anesthesia Postop Eval I Sum Postop Eval Completion status Anesthesia document: Postop Eval 1 completed: Yes Anesthesia Postop Eval I Summary Anesthesia Postop Eval I Summary: Anesthesia Postop Eval I: Assessment Summary Airway patent Yes 09/26/25 12:01 [email or web address] [email or web address] Spontaneous unlabored Yes 09/26/25 12:01 GLUE [email or web address] [email or web address] respirations Mental status nausea No 09/26/25 12:01 GLUE [email or web address] [email or web address] Vomiting No 09/26/25 12:01 GLUE [email or web address] [email or web address] Anesthesia Postop Eval I: Fluid Summary Crystalloid volume administer 1,200 09/26/25 12:01 GLUE [email or web address] [email or web address] (ml) Colloids volume administered ( ml) Blood Product volume administered (ml) Total IV fluid infused 1,200 09/26/25 12:01 GLUE [email or web address] [email or web address] Anesthesia Postop Eval I: Summary Notes Anesthesia Complication No 09/26/25 12:01 GLUE [email or web address] [email or web address] Anesthesia Complication Comment: Post-operative progress note Anesthesia: Postop Eval II Evaluation Mental status: Awake and Calm Pain Level: 1 nausea: No Vomiting: No Complications Anesthesia Complication: No
[2025-10-12 06:33] LABS: Cytology, Body Fluid / CSF SEE PATHOLOGY REPORT
== END 2025-09-26 14:21 | disposition home or self-care (01) ==
LOC: SDC 08:15 → AC 08:17
PROVIDERS: PCP Nurse Practitioner Family; Referring Provider Obstetrics & Gynecology; Visit Provider Obstetrics & Gynecology
PROC: (CPT 58720; principal; 2025-09-26 09:45)
DX: D27.1 Benign neoplasm of left ovary (principal); J45.909 Unspecified asthma, uncomplicated; F32.A Depression, unspecified; Z79.899 Other long term (current) drug therapy
CPT/HCPCS: 58662; 00840; 81025; 85027; 86850; 86900; 86901; 88108; 88305; 88307; 88313; J2405